=== PATIENT | female | born 1935 | race Caucasian/White ===

== ENCOUNTER 2019-12-24 09:50 | Outpatient (CLI) | payer MEDICARE, OTHER, SELFPAY ==
[2019-12-24 10:08] LABS: Hematocrit 34.4 % (37.0-47.0); Hemoglobin 9.9 g/dL (12.0-15.0)
== END 2019-12-24 09:51 | disposition home or self-care (01) ==
LOC: ANHLAB 09:53
PROVIDERS: PCP Internal Medicine; Visit Provider Physician Assistant
DX: D64.9 Anemia, unspecified (principal)
CPT/HCPCS: 36415; 85014; 85018

== ENCOUNTER 2019-12-31 00:41 | Day surgery (SDC) | payer MEDICARE, OTHER, SELFPAY ==
[2019-12-23 14:25] VITALS: BMI 24.2
[2019-12-31 08:25] VITALS: BP 140/75; PULSE 88; RESP 16; TEMP 36.4; O2SAT 96
--- NOTE | 2019-12-31 08:25 | PM.IMHP ---
H&P: HPI History of Present Illness Chief complaint: Iron deficiency anemia due to chronic blood loss Narrative: Denise Segura is a 84 year old female presents for repeat EGD. She has recurrent Anemia. She had EGD/Colonoscopy 12/17/2019 and was found to have multiple duodenal AVM for which APC was used. She had so many it was advised to come back in a few weeks for repeat EGD. She had colonoscopy at that time that was unremarkable. She does have hx of recurrent colon cancer s/p colectomy in 1999 and 2017 and found at that time to have bladder cancer. Patient last hgb was noted on 12/14/2019 to be 9.9. She denies any melena, hematochezia, hemetemesis, GERD, nausea or vomiting. Denies abnormal weight loss, fever or chills. Review of Systems Review of Systems: All systems reviewed & are unremarkable except as noted in HPI and below Gastrointestinal: Gastrointestinal: Reports vomiting (this AM. nothing black or bloody) [facility] Past Medical History Medical History (Updated 12/31/19 @ 08:37 by Tara Joiner, BOILER ENGINEER) Barretts esophagus Status post radiofrequency ablation. Bartholin cyst Status post excision. 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 Bland. Chronic anemia With history of blood transfusion. Chronic kidney disease Stage III. Baseline creatinine appears to fluctuate between 1.0 and 1.20. Colon cancer (1999) Status post right hemicolectomy. There was recurrence at the splenic fracture, which was resected in September [address] Duran. Coronary artery disease Cardiac catheterization June 2018 with high-grade stenosis in the proximal mid right coronary artery and mild stenosis of the mid LAD with bare metal stent placement due to history of GI bleeding Diastolic congestive heart failure Echocardiogram in September 2018 showed an ejection fraction of 70-75% with severe left atrial enlargement and moderate right atrial enlargement. GERD (gastroesophageal reflux disease) With history of peptic ulcers. History of atrial flutter Status post ablation of the cavo-tricuspid isthmus per Dr. Jaffe at [facility]. Hyperlipidemia Hypertension Moderate pulmonary arterial systolic hypertension On echocardiogram in September 2018 with an estimated peak RVSP 45-50 mmHg. Paroxysmal atrial fibrillation She is maintained on amiodarone. She had been on metoprolol in the past, but that was stopped due to bradycardia. She is on long-term anticoagulation with Eliquis. Her receiver bulk system is Dr. Jake Bravo. Peptic ulcer disease With history of GI bleed. Spinal stenosis Uterine cancer Status post hysterectomy. Valvular heart disease Echocardiogram in September 2018 showed mild to moderate mitral valve regurgitation, mild aortic valve regurgitation, and moderate tricuspid regurgitation. Surgical History Surgical History H/O right hemicolectomy With excision of 3 liver lesions in September 2016. She had a recurrence at the splenic fracture which was resected in September 2018. History of cardiac catheterization With placement of bare metal stent to the right coronary artery in 2009. History of cardiac radiofrequency ablation For atrial flutter per Dr. Jaffe at [facility]. History of cataract surgery Bilateral. History of total abdominal hysterectomy and bilateral salpingo-oophorectomy In 1999, reportedly due to ?early? uterine cancer. S/P bladder tumor excision with fulguration For urothelial cell carcinoma, done in September [address] Bland. Status post left breast lumpectomy With benign pathology. Status post surgical removal of ganglion cyst Left volar wrist. Social History Social History Social History: The patient is and lives in [place]. Her daughter, Jena Mar, is her surrogate decision make
[2019-12-31] MEDS: LACTATED RINGERS 1,000 ML 150 ML IV CONT (08:37)
--- NOTE | 2019-12-31 09:01 | WPDANESEPPF ---
Anes - Initial Pre Proc Eval Procedure: Operation Date: 12/31/19 09:00 Proposed Procedures p Esophagogastroduodenoscopy - Carlo Penaloza DO Date/Time: 12/31/19 09:01 Surgeon: Carlo Penaloza DO Pre Op Diagnosis: Iron deficiency anemia due to chronic blood loss Patient Data Age: 84 Gender: F Height: 5 ft 2 in Weight: 64.1 kg Last Vital Signs Temp 36.4 C 12/31/19 08:25 Pulse 88 12/31/19 08:25 Resp 16 12/31/19 08:25 BP 140/75 12/31/19 08:25 Pulse Ox 96 12/31/19 08:25 Allergies Allergy/AdvReac Type Severity Reaction Status Date / Time No Known Allergies Allergy Verified 12/31/19 08:07 Home Medications Medication Instructions Recorded Confirmed Type furosemide 40 mg tablet 40 mg PO BID 09/21/19 12/31/19 History losartan 50 mg tablet 50 mg PO DAILY 09/21/19 12/31/19 History ferrous sulfate 324 mg (65 mg 324 mg PO BID #180 tablet 10/14/19 12/31/19 Rx iron) tablet,delayed release potassium chloride 20 mEq 40 meq PO BID #120 tablet 11/19/19 12/31/19 Rx tablet,extended release amiodarone 400 mg PO BID 12/23/19 12/31/19 History atorvastatin 20 mg PO DAILY 12/23/19 12/31/19 History metoprolol tartrate 25 mg PO BID 12/23/19 12/31/19 History pantoprazole 40 mg PO HS 12/23/19 12/31/19 History Patient hx anesthesia problems: none Family hx anesthesia problems: none PMFSH Past Medical History Medical History Barretts esophagus Status post radiofrequency ablation. Bartholin cyst Status post excision. 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 Bland. Chronic anemia With history of blood transfusion. Chronic kidney disease Stage III. Baseline creatinine appears to fluctuate between 1.0 and 1.20. Colon cancer (1999) Status post right hemicolectomy. There was recurrence at the splenic fracture, which was resected in September [address] Duran. Coronary artery disease Cardiac catheterization June 2018 with high-grade stenosis in the proximal mid right coronary artery and mild stenosis of the mid LAD with bare metal stent placement due to history of GI bleeding Diastolic congestive heart failure Echocardiogram in September 2018 showed an ejection fraction of 70-75% with severe left atrial enlargement and moderate right atrial enlargement. GERD (gastroesophageal reflux disease) With history of peptic ulcers. History of atrial flutter Status post ablation of the cavo-tricuspid isthmus per Dr. Jaffe at [facility]. Hyperlipidemia Hypertension Moderate pulmonary arterial systolic hypertension On echocardiogram in September 2018 with an estimated peak RVSP 45-50 mmHg. Paroxysmal atrial fibrillation She is maintained on amiodarone. She had been on metoprolol in the past, but that was stopped due to bradycardia. She is on long-term anticoagulation with Eliquis. Her adult health clinical nurse specialist is Dr. Jake Bravo. Peptic ulcer disease With history of GI bleed. Spinal stenosis Uterine cancer Status post hysterectomy. Valvular heart disease Echocardiogram in September 2018 showed mild to moderate mitral valve regurgitation, mild aortic valve regurgitation, and moderate tricuspid regurgitation. Surgical History Surgical History H/O right hemicolectomy With excision of 3 liver lesions in September 2016. She had a recurrence at the splenic fracture which was resected in September 2018. History of cardiac catheterization With placement of bare metal stent to the right coronary artery in 2009. History of cardiac radiofrequency ablation For atrial flutter per Dr[facility] Jaffe at [facility]. History of cataract surgery Bilateral. History of total abdominal hysterectomy and bilateral salpingo-oophorectomy In 1999, reportedly due to ?early? uterine cancer. S/P bladder tumor excision with fulguration
[2019-12-31 10:00] VITALS: BP 135/57; PULSE 60; RESP 16; O2SAT 95
[2019-12-31 10:10] VITALS: BP 124/56; PULSE 62; RESP 18; O2SAT 95
[2019-12-31 10:20] VITALS: BP 136/56; PULSE 60; RESP 18; O2SAT 99
== END 2019-12-31 10:45 | disposition home or self-care (01) ==
PROVIDERS: PCP Internal Medicine; Visit Provider Internal Medicine Gastroenterology
PROC: 0DJ08ZZ Inspection of Upper Intestinal Tract, Via Natural or Artificial Opening Endoscopic (ICD-10-PCS; CPT 43235; principal; 2019-12-31 09:00)
DX: Q27.33 Arteriovenous malformation of digestive system vessel (principal); K29.70 Gastritis, unspecified, without bleeding; D50.0 Iron deficiency anemia secondary to blood loss (chronic); I13.0 Hypertensive heart and chronic kidney disease with heart failure and stage 1 through stage 4 chronic kidney disease, or unspecified chronic kidney disease; I50.30 Unspecified diastolic (congestive) heart failure; I25.10 Atherosclerotic heart disease of native coronary artery without angina pectoris; K21.9 Gastro-esophageal reflux disease without esophagitis; I48.0 Paroxysmal atrial fibrillation; Z95.5 Presence of coronary angioplasty implant and graft; Z87.11 Personal history of peptic ulcer disease; Z85.51 Personal history of malignant neoplasm of bladder; Z85.038 Personal history of other malignant neoplasm of large intestine; Z90.49 Acquired absence of other specified parts of digestive tract; Z85.42 Personal history of malignant neoplasm of other parts of uterus; Z87.891 Personal history of nicotine dependence
CPT/HCPCS: 43270; J2704; J7120

== ENCOUNTER 2020-01-28 11:04 | Outpatient (RCR) | payer MEDICARE, OTHER, SELFPAY ==
[2020-01-05 12:55] LABS: Basophils Percent Auto 0.5 % (0.2-1.2); Eosinophils Absolute Auto 0.1 K/mm3 (0-0.3); Eosinophils Percent Auto 1.5 % (0-4.4); Hematocrit 34.2 % (37.0-47.0); Immature Granulocyte Absolute 0.16 K/mm3 (0.00-0.031); Immature Granulocyte Percent A 1.9 % (0-0.5); Lymphocytes Absolute Auto 0.85 K/mm3 (0.9-3.2); Mean Corpuscular HGB Conc 29.2 g/dl (32-36); Mean Corpuscular Hemoglobin 24.9 pg (26-34); Mean Corpuscular Volume 85.1 fl (80-100); Mean Platelet Volume 9.3 fl (7.4-10.4); Monocytes Absolute Auto 0.6 K/mm3 (0.1-0.6); Monocytes Percent Auto 6.7 % (2.6-8.5); Neutrophils Absolute Auto 6.7 K/mm3 (1.3-6.7); Neutrophils Percent Auto 79.4 % (45.5-73.1); Platelet Count Result 351 k/mm3 (150-375); Red Blood Count 4.02 M/mm3 (4.2-5.4); Red Cell Distribution Width 18.7 % (11.5-14.5); White Blood Count 8.5 K/mm3 (4.5-10.0)
[2020-01-14 13:05] LABS: Basophils Percent Auto 0.6 % (0.2-1.2); Eosinophils Absolute Auto 0.2 K/mm3 (0-0.3); Eosinophils Percent Auto 3.5 % (0-4.4); Hematocrit 32.4 % (37.0-47.0); Hemoglobin 9.3 g/dL (12.0-15.0); Immature Granulocyte Absolute 0.05 K/mm3 (0.00-0.031); Immature Granulocyte Percent A 0.8 % (0-0.5); Lymphocytes Absolute Auto 0.85 K/mm3 (0.9-3.2); Mean Corpuscular HGB Conc 28.7 g/dl (32-36); Mean Corpuscular Hemoglobin 24.9 pg (26-34); Mean Corpuscular Volume 86.6 fl (80-100); Mean Platelet Volume 9.9 fl (7.4-10.4); Monocytes Absolute Auto 0.5 K/mm3 (0.1-0.6); Monocytes Percent Auto 8.1 % (2.6-8.5); Neutrophils Absolute Auto 4.8 K/mm3 (1.3-6.7); Platelet Count Result 239 k/mm3 (150-375); Red Blood Count 3.74 M/mm3 (4.2-5.4); Red Cell Distribution Width 20.7 % (11.5-14.5); White Blood Count 6.5 K/mm3 (4.5-10.0)
[2020-01-14 13:25] LABS: Anisocytosis 2+ (NORMAL); Platelet Estimate Adequate (Adequate)
[2020-01-14 13:26] LABS: Hypochromasia 1+ (NORMAL)
[2020-01-21 13:57] LABS: Basophils Absolute Auto 0.1 K/mm3 (0.0-0.1); Basophils Percent Auto 0.7 % (0.2-1.2); Eosinophils Absolute Auto 0.2 K/mm3 (0-0.3); Eosinophils Percent Auto 3.2 % (0-4.4); Hemoglobin 9.5 g/dL (12.0-15.0); Immature Granulocyte Absolute 0.09 K/mm3 (0.00-0.031); Immature Granulocyte Percent A 1.2 % (0-0.5); Lymphocytes Absolute Auto 1.16 K/mm3 (0.9-3.2); Lymphocytes Percent Auto 15.4 % (18.3-44.2); Mean Corpuscular HGB Conc 28.8 g/dl (32-36); Mean Corpuscular Hemoglobin 25.8 pg (26-34); Mean Corpuscular Volume 89.7 fl (80-100); Mean Platelet Volume 10.2 fl (7.4-10.4); Monocytes Absolute Auto 0.5 K/mm3 (0.1-0.6); Monocytes Percent Auto 6.9 % (2.6-8.5); Neutrophils Absolute Auto 5.5 K/mm3 (1.3-6.7); Neutrophils Percent Auto 72.6 % (45.5-73.1); Platelet Count Result 278 k/mm3 (150-375); Red Blood Count 3.68 M/mm3 (4.2-5.4); White Blood Count 7.5 K/mm3 (4.5-10.0)
[2020-01-28 11:40] LABS: Basophils Absolute Auto 0.1 K/mm3 (0.0-0.1); Basophils Percent Auto 0.9 % (0.2-1.2); Eosinophils Absolute Auto 0.2 K/mm3 (0-0.3); Eosinophils Percent Auto 3.1 % (0-4.4); Hematocrit 29.9 % (37.0-47.0); Hemoglobin 8.5 g/dL (12.0-15.0); Immature Granulocyte Absolute 0.05 K/mm3 (0.00-0.031); Immature Granulocyte Percent A 0.7 % (0-0.5); Lymphocytes Absolute Auto 0.73 K/mm3 (0.9-3.2); Lymphocytes Percent Auto 10.8 % (18.3-44.2); Mean Corpuscular HGB Conc 28.4 g/dl (32-36); Mean Corpuscular Hemoglobin 25.4 pg (26-34); Mean Corpuscular Volume 89.5 fl (80-100); Mean Platelet Volume 9.9 fl (7.4-10.4); Monocytes Absolute Auto 0.5 K/mm3 (0.1-0.6); Monocytes Percent Auto 6.8 % (2.6-8.5); Neutrophils Absolute Auto 5.3 K/mm3 (1.3-6.7); Neutrophils Percent Auto 77.7 % (45.5-73.1); Platelet Count Result 268 k/mm3 (150-375); Red Blood Count 3.34 M/mm3 (4.2-5.4); Red Cell Distribution Width 20.7 % (11.5-14.5); White Blood Count 6.8 K/mm3 (4.5-10.0)
== END 2020-04-04 23:59 | disposition home or self-care (01) ==
LOC: ANHLAB 11:04
PROVIDERS: PCP Internal Medicine; Visit Provider Nurse Practitioner
DX: D50.0 Iron deficiency anemia secondary to blood loss (chronic) (principal); K55.21 Angiodysplasia of colon with hemorrhage
CPT/HCPCS: 36415; 85025

== ENCOUNTER 2020-02-17 14:09 | Outpatient (CLI) | payer MEDICARE, OTHER, SELFPAY ==
[2020-02-17 15:19] LABS: Basophils Absolute Auto 0.1 K/mm3 (0.0-0.1); Basophils Percent Auto 0.6 % (0.2-1.2); Eosinophils Absolute Auto 0.2 K/mm3 (0-0.3); Eosinophils Percent Auto 1.7 % (0-4.4); Hematocrit 24.8 % (37.0-47.0); Immature Granulocyte Absolute 0.15 K/mm3 (0.00-0.031); Immature Granulocyte Percent A 1.7 % (0-0.5); Lymphocytes Absolute Auto 0.75 K/mm3 (0.9-3.2); Lymphocytes Percent Auto 8.7 % (18.3-44.2); Mean Corpuscular HGB Conc 27.4 g/dl (32-36); Mean Corpuscular Hemoglobin 25.3 pg (26-34); Mean Corpuscular Volume 92.2 fl (80-100); Mean Platelet Volume 11.1 fl (7.4-10.4); Monocytes Absolute Auto 0.7 K/mm3 (0.1-0.6); Neutrophils Absolute Auto 6.9 K/mm3 (1.3-6.7); Neutrophils Percent Auto 79.3 % (45.5-73.1); Nucleated Red Blood Cells Perc 0.2 % (0.0-0.2); Platelet Count Result 269 k/mm3 (150-375); Red Blood Count 2.69 M/mm3 (4.2-5.4); Red Cell Distribution Width 18.1 % (11.5-14.5); White Blood Count 8.7 K/mm3 (4.5-10.0)
[2020-02-17 15:26] LABS: INR 1.5; Prothrombin Time 18.1 Seconds (11.1-14.7)
[2020-02-17 15:28] LABS: Blood Urea Nitrogen 22 mg/dL (7-17); Calcium 8.5 mg/dL (8.4-10.2); Carbon Dioxide 28 mmol/L (22-30); Chloride 100 mmol/L (98-107); Estimated Glomerular Filt Rate 39; Glucose 138 mg/dL (65-105); Potassium 4.1 mmol/L (3.4-5.0); Sodium 136 mmol/L (137-145)
[2020-02-17 15:29] LABS: Hemoglobin 6.8 g/dL (12.0-15.0)
[2020-02-17 15:41] LABS: Hypochromasia 2+ (NORMAL); Platelet Estimate Adequate (Adequate)
[2020-02-17 15:42] LABS: Anisocytosis 3+ (NORMAL)
== END 2020-02-17 14:10 | disposition home or self-care (01) ==
PROVIDERS: PCP Internal Medicine; Visit Provider Internal Medicine Gastroenterology
DX: D64.9 Anemia, unspecified (principal); K92.2 Gastrointestinal hemorrhage, unspecified
CPT/HCPCS: 36415; 80048; 85025; 85610

== ENCOUNTER 2020-02-23 05:45 | Day surgery (SDC) | payer MEDICARE, OTHER, SELFPAY ==
[2020-02-18 10:52] VITALS: BMI 22.8
[2020-02-23 09:49] VITALS: BP 134/74; PULSE 86; RESP 20; TEMP 36.4; O2SAT 100
[2020-02-23 09:51] VITALS: BMI 23.5
--- NOTE | 2020-02-23 10:11 | PM.IMHP ---
H&P: HPI History of Present Illness Chief complaint: Anemia/ Gastrointestinal Hemorrhage Narrative: This very pleasant lady is here for EGD. Imp: Recurrent anemia with his of SB AVM His. CRC GERD. PER PMH. Rec: EGD. History: This very plesant lady has history of SB AVM. She has developed recurrent anemia. She reports diffuse weakness when she is anemic. she is here for EGD. PE: Alert HRRR HEENTN: negative Lungs CTA Abd: soft N: non focal ERICA: negative Skin: negative. Review of Systems Review of Systems: All systems reviewed & are unremarkable except as noted in HPI and below [facility] Past Medical History Medical History (Updated 12/31/19 @ 09:53 by Carlo Penaloza DO) AVM (arteriovenous malformation) of duodenum, acquired Barretts esophagus Status post radiofrequency ablation. Bartholin cyst Status post excision. 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 Bland. Chronic anemia With history of blood transfusion. Chronic kidney disease Stage III. Baseline creatinine appears to fluctuate between 1.0 and 1.20. Colon cancer (1999) Status post right hemicolectomy. There was recurrence at the splenic fracture, which was resected in September [address] Duran. Coronary artery disease Cardiac catheterization June 2018 with high-grade stenosis in the proximal mid right coronary artery and mild stenosis of the mid LAD with bare metal stent placement due to history of GI bleeding Diastolic congestive heart failure Echocardiogram in September 2018 showed an ejection fraction of 70-75% with severe left atrial enlargement and moderate right atrial enlargement. GERD (gastroesophageal reflux disease) With history of peptic ulcers. History of atrial flutter Status post ablation of the cavo-tricuspid isthmus per Dr. Jaffe at [facility]. Hyperlipidemia Hypertension Moderate pulmonary arterial systolic hypertension On echocardiogram in September 2018 with an estimated peak RVSP 45-50 mmHg. Paroxysmal atrial fibrillation She is maintained on amiodarone. She had been on metoprolol in the past, but that was stopped due to bradycardia. She is on long-term anticoagulation with Eliquis. Her supervisor veneer is Dr. Jake Bravo. Peptic ulcer disease With history of GI bleed. Spinal stenosis Uterine cancer Status post hysterectomy. Valvular heart disease Echocardiogram in September 2018 showed mild to moderate mitral valve regurgitation, mild aortic valve regurgitation, and moderate tricuspid regurgitation. Surgical History Surgical History H/O right hemicolectomy With excision of 3 liver lesions in September 2016. She had a recurrence at the splenic fracture which was resected in September 2018. History of cardiac catheterization With placement of bare metal stent to the right coronary artery in 2009. History of cardiac radiofrequency ablation For atrial flutter per Dr. Jaffe at [facility]. History of cataract surgery Bilateral. History of total abdominal hysterectomy and bilateral salpingo-oophorectomy In 1999, reportedly due to ?early? uterine cancer. S/P bladder tumor excision with fulguration For urothelial cell carcinoma, done in September [address] Bland. Status post left breast lumpectomy With benign pathology. Status post surgical removal of ganglion cyst Left volar wrist. Social History Social History Social History: The patient is and lives in [place]. Her daughter, Jena Mar, is her surrogate decision maker and she is listed as a full code. She smoked up to half a pack of cigarettes per day, and still smokes intermittently but not daily. She denies alcohol and drug abuse. Her primary care provider is Dr. Amandeep Gutierrez. Smoking status: Former smoker Second hand
[2020-02-23] MEDS: LACTATED RINGERS 1,000 ML 150 ML IV CONT (10:29)
--- NOTE | 2020-02-23 10:29 | WPDANESEPPF ---
Anes - Initial Pre Proc Eval Procedure: Operation Date: 02/23/20 11:00 Proposed Procedures p Esophagogastroduodenoscopy - Carlo Penaloza DO Date/Time: 02/23/20 10:29 Surgeon: Carlo Penaloza DO Pre Op Diagnosis: Anemia/ Gastrointestinal Hemorrhage Patient Data Age: 85 Gender: F Height: 5 ft 6 in Weight: 66 kg Last Vital Signs Temp 36.4 C 02/23/20 09:49 Pulse 86 02/23/20 09:49 Resp 20 02/23/20 09:49 BP 134/74 02/23/20 09:49 Pulse Ox 100 02/23/20 09:49 Allergies Allergy/AdvReac Type Severity Reaction Status Date / Time No Known Allergies Allergy Verified 12/31/19 08:07 Home Medications Medication Instructions Recorded Confirmed Type furosemide 40 mg tablet 40 mg PO BID 09/21/19 02/23/20 History losartan 50 mg tablet 50 mg PO DAILY 09/21/19 02/23/20 History ferrous sulfate 324 mg (65 mg 324 mg PO BID #180 tablet 10/14/19 02/18/20 Rx iron) tablet,delayed release amiodarone 400 mg PO BID 12/23/19 02/23/20 History atorvastatin 20 mg PO DAILY 12/23/19 02/23/20 History pantoprazole 40 mg PO HS 12/23/19 02/23/20 History potassium chloride 20 mEq 40 meq PO BID #120 tablet 01/05/20 02/23/20 Rx tablet,extended release metoprolol tartrate 25 mg tablet 25 mg PO BID #180 tablet 01/07/20 02/23/20 Rx vitamin K2 80 mcg PO 02/23/20 History Patient hx anesthesia problems: none Family hx anesthesia problems: none [facility] Past Medical History Medical History AVM (arteriovenous malformation) of duodenum, acquired Barretts esophagus Status post radiofrequency ablation. Bartholin cyst Status post excision. 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 Bland. Chronic anemia With history of blood transfusion. Chronic kidney disease Stage III. Baseline creatinine appears to fluctuate between 1.0 and 1.20. Colon cancer (1999) Status post right hemicolectomy. There was recurrence at the splenic fracture, which was resected in September [address] Duran. Coronary artery disease Cardiac catheterization June 2018 with high-grade stenosis in the proximal mid right coronary artery and mild stenosis of the mid LAD with bare metal stent placement due to history of GI bleeding Diastolic congestive heart failure Echocardiogram in September 2018 showed an ejection fraction of 70-75% with severe left atrial enlargement and moderate right atrial enlargement. GERD (gastroesophageal reflux disease) With history of peptic ulcers. History of atrial flutter Status post ablation of the cavo-tricuspid isthmus per Dr. Jaffe at [facility]. Hyperlipidemia Hypertension Moderate pulmonary arterial systolic hypertension On echocardiogram in September 2018 with an estimated peak RVSP 45-50 mmHg. Paroxysmal atrial fibrillation She is maintained on amiodarone. She had been on metoprolol in the past, but that was stopped due to bradycardia. She is on long-term anticoagulation with Eliquis. Her rapid outsole stitcher is Dr. Jake Bravo. Peptic ulcer disease With history of GI bleed. Spinal stenosis Uterine cancer Status post hysterectomy. Valvular heart disease Echocardiogram in September 2018 showed mild to moderate mitral valve regurgitation, mild aortic valve regurgitation, and moderate tricuspid regurgitation. Surgical History Surgical History H/O right hemicolectomy With excision of 3 liver lesions in September 2016. She had a recurrence at the splenic fracture which was resected in September 2018. History of cardiac catheterization With placement of bare metal stent to the right coronary artery in 2009. History of cardiac radiofrequency ablation For atrial flutter per Dr. Jaffe at [facility]. History of cataract surgery Bilateral. History of total abdominal hysterectomy and bilateral salpingo-oophorec
[2020-02-23 10:33] LABS: Basophils Percent Auto 0.8 % (0.2-1.2); Eosinophils Absolute Auto 0.2 K/mm3 (0-0.3); Eosinophils Percent Auto 3.1 % (0-4.4); Hematocrit 28.9 % (37.0-47.0); Immature Granulocyte Absolute 0.04 K/mm3 (0.00-0.031); Immature Granulocyte Percent A 0.8 % (0-0.5); Lymphocytes Absolute Auto 0.74 K/mm3 (0.9-3.2); Lymphocytes Percent Auto 14.2 % (18.3-44.2); Mean Corpuscular HGB Conc 27.7 g/dl (32-36); Mean Corpuscular Hemoglobin 25.3 pg (26-34); Mean Corpuscular Volume 91.5 fl (80-100); Mean Platelet Volume 9.6 fl (7.4-10.4); Monocytes Absolute Auto 0.5 K/mm3 (0.1-0.6); Monocytes Percent Auto 8.8 % (2.6-8.5); Neutrophils Absolute Auto 3.8 K/mm3 (1.3-6.7); Neutrophils Percent Auto 72.3 % (45.5-73.1); Platelet Count Result 195 k/mm3 (150-375); Red Blood Count 3.16 M/mm3 (4.2-5.4); Red Cell Distribution Width 16.2 % (11.5-14.5); White Blood Count 5.2 K/mm3 (4.5-10.0)
--- NOTE | 2020-02-23 10:38 | SUR.PREOP ---
1033 DAUGHTER CALLED AND ASKED TO COME TO THE HOSPITAL. DAUGHTER SENT HOME WITH RECENT COVID PRECAUTIONS. REGINO HOWELL
[2020-02-23 10:44] LABS: INR 1.1; Prothrombin Time 13.7 Seconds (11.1-14.7)
[2020-02-23 10:59] LABS: Hypochromasia 1+ (NORMAL); Ovalocytes 1+ (NORMAL); Platelet Estimate Adequate (Adequate)
[2020-02-23 11:07] VITALS: BP 80/30; PULSE 65; RESP 23; O2SAT 100
[2020-02-23 11:17] VITALS: BP 97/40; PULSE 61; RESP 20; O2SAT 98
[2020-02-23 11:27] VITALS: BP 126/61; PULSE 64; RESP 20; O2SAT 99
== END 2020-02-23 11:45 | disposition home or self-care (01) ==
PROVIDERS: PCP Internal Medicine; Visit Provider Internal Medicine Gastroenterology
PROC: 0DJ08ZZ Inspection of Upper Intestinal Tract, Via Natural or Artificial Opening Endoscopic (ICD-10-PCS; CPT 43235; principal; 2020-02-23 11:00)
DX: D64.9 Anemia, unspecified (principal); Q27.33 Arteriovenous malformation of digestive system vessel; K29.70 Gastritis, unspecified, without bleeding; I13.0 Hypertensive heart and chronic kidney disease with heart failure and stage 1 through stage 4 chronic kidney disease, or unspecified chronic kidney disease; N18.3 Chronic kidney disease, stage 3 (moderate); I50.30 Unspecified diastolic (congestive) heart failure; I25.10 Atherosclerotic heart disease of native coronary artery without angina pectoris; I08.3 Combined rheumatic disorders of mitral, aortic and tricuspid valves; E78.5 Hyperlipidemia, unspecified; I48.0 Paroxysmal atrial fibrillation; I27.20 Pulmonary hypertension, unspecified; Z85.038 Personal history of other malignant neoplasm of large intestine; Z85.51 Personal history of malignant neoplasm of bladder; Z85.42 Personal history of malignant neoplasm of other parts of uterus; Z90.49 Acquired absence of other specified parts of digestive tract; F17.210 Nicotine dependence, cigarettes, uncomplicated
CPT/HCPCS: 43270; 36415; 85025; 85610; J2001; J2704; J7120

== ENCOUNTER 2020-03-09 11:08 | Outpatient (CLI) | payer MEDICARE, OTHER, SELFPAY ==
[2020-03-09 11:46] LABS: Basophils Absolute Auto 0.1 K/mm3 (0.0-0.1); Basophils Percent Auto 0.9 % (0.2-1.2); Eosinophils Absolute Auto 0.2 K/mm3 (0-0.3); Eosinophils Percent Auto 2.6 % (0-4.4); Hematocrit 29.3 % (37.0-47.0); Hemoglobin 8.1 g/dL (12.0-15.0); Immature Granulocyte Absolute 0.04 K/mm3 (0.00-0.031); Immature Granulocyte Percent A 0.7 % (0-0.5); Lymphocytes Absolute Auto 0.96 K/mm3 (0.9-3.2); Lymphocytes Percent Auto 16.9 % (18.3-44.2); Mean Corpuscular HGB Conc 27.6 g/dl (32-36); Mean Corpuscular Hemoglobin 24.9 pg (26-34); Mean Corpuscular Volume 90.2 fl (80-100); Mean Platelet Volume 10.4 fl (7.4-10.4); Monocytes Absolute Auto 0.5 K/mm3 (0.1-0.6); Monocytes Percent Auto 9.5 % (2.6-8.5); Neutrophils Absolute Auto 3.9 K/mm3 (1.3-6.7); Neutrophils Percent Auto 69.4 % (45.5-73.1); Platelet Count Result 242 k/mm3 (150-375); Red Blood Count 3.25 M/mm3 (4.2-5.4); Red Cell Distribution Width 16.6 % (11.5-14.5); White Blood Count 5.7 K/mm3 (4.5-10.0)
[2020-03-09 11:59] LABS: Platelet Estimate Adequate (Adequate)
== END 2020-03-09 11:09 | disposition home or self-care (01) ==
LOC: ANHLAB 11:11
PROVIDERS: PCP Internal Medicine; Visit Provider Internal Medicine Gastroenterology
DX: K55.21 Angiodysplasia of colon with hemorrhage (principal); D50.8 Other iron deficiency anemias
CPT/HCPCS: 36415; 85025

== ENCOUNTER 2020-04-26 00:12 | Outpatient (CLI) | payer MEDICARE, OTHER, SELFPAY ==
[2020-04-26 18:39] LABS: SARS-CoV-2 RNA PCR Negative
== END 2020-04-26 00:13 | disposition home or self-care (01) ==
LOC: ANHCOVIDDT 00:14
PROVIDERS: PCP Internal Medicine; Visit Provider Internal Medicine Gastroenterology
DX: Z01.818 Encounter for other preprocedural examination (principal); Z11.59 Encounter for screening for other viral diseases
CPT/HCPCS: 87635; C9803; U0003

== ENCOUNTER 2020-04-28 00:53 | Day surgery (SDC) | payer MEDICARE, OTHER, SELFPAY ==
[2020-04-21 14:06] VITALS: BMI 26.6
[2020-04-28 08:25] VITALS: BP 158/70; PULSE 84; RESP 16; TEMP 35.9; O2SAT 100
[2020-04-28] MEDS: LACTATED RINGERS 1,000 ML 150 ML IV CONT (08:31)
--- NOTE | 2020-04-28 08:56 | WPDANESEPPF ---
Anes - Initial Pre Proc Eval Procedure: Operation Date: 04/28/20 09:00 Proposed Procedures p Esophagogastroduodenoscopy - Carlo Penaloza DO Date/Time: 04/28/20 08:56 Surgeon: Carlo Penaloza DO Pre Op Diagnosis: Arteriovenous Malformation Small Bowel Patient Data Age: 85 Gender: F Height: 5 ft 2 in Weight: 67.3 kg Last Vital Signs Temp 96.7 F L 04/28/20 08:25 Pulse 84 04/28/20 08:25 Resp 16 04/28/20 08:25 BP 158/70 H 04/28/20 08:25 Pulse Ox 100 04/28/20 08:25 Allergies Allergy/AdvReac Type Severity Reaction Status Date / Time No Known Allergies Allergy Verified 04/28/20 08:23 Home Medications Medication Instructions Recorded Confirmed Type furosemide 40 mg tablet 40 mg PO BID 09/21/19 04/21/20 History losartan 50 mg tablet 50 mg PO DAILY 09/21/19 04/21/20 History ferrous sulfate 324 mg (65 mg 324 mg PO BID #180 tablet 10/14/19 04/21/20 Rx iron) tablet,delayed release amiodarone 400 mg PO BID 12/23/19 04/21/20 History atorvastatin 20 mg PO DAILY 12/23/19 04/21/20 History metoprolol tartrate 25 mg tablet 25 mg PO BID #180 tablet 01/07/20 04/21/20 Rx pantoprazole 40 mg tablet,delayed 40 mg PO HS #90 tablet 03/14/20 04/21/20 Rx release apixaban [Eliquis] 5 mg PO DAILY 04/21/20 04/28/20 History potassium chloride 40 meq PO BID 04/21/20 04/21/20 History Patient hx anesthesia problems: none Family hx anesthesia problems: none PMFSH Surgical History Surgical History H/O right hemicolectomy With excision of 3 liver lesions in September 2016. She had a recurrence at the splenic fracture which was resected in September 2018. History of cardiac catheterization With placement of bare metal stent to the right coronary artery in 2009. History of cardiac radiofrequency ablation For atrial flutter per Dr. Jaffe at [facility]. History of cataract surgery Bilateral. History of total abdominal hysterectomy and bilateral salpingo-oophorectomy In 1999, reportedly due to ?early? uterine cancer. S/P bladder tumor excision with fulguration For urothelial cell carcinoma, done in September [address] Bland. Status post left breast lumpectomy With benign pathology. Status post surgical removal of ganglion cyst Left volar wrist. Social History Social History Social History: The patient is and lives in [place]. Her daughter, Jena Mar, is her surrogate decision maker and she is listed as a full code. She smoked up to half a pack of cigarettes per day, and still smokes intermittently but not daily. She denies alcohol and drug abuse. Her primary care provider is Dr. Amandeep Gutierrez. Smoking status: Former smoker Second hand tobacco smoke exposure: No Additional smoking assessment comments: Alcohol intake: never Substance use: never Gender identity (if verbalized by the patient): Female Spiritual care concerns: No Agree to blood products: Yes Anes - Eval Final PreProcedure Day of Procedure 04/28/20 08:56 Patient weight: normal Heart: regular rate and rhythm Lungs: clear to auscultation Airway: Mallampati scale class II Neurological: alert and oriented Last oral intake: >/= 8 hours ASA classification: IV Emergent: no Anesthetic plan: proceed Anesthesia type and monitoring: general GIVS and standard monitoring Informed Consent: The patient's anesthetic plan and its attendant risks and benefits were discussed with the patient/family/POA. Questions were solicited and answers provided to the satisfaction of the patient/family/POA.
--- NOTE | 2020-04-28 09:31 | PM.IMHP ---
H&P: HPI History of Present Illness Chief complaint: Arteriovenous Malformation Small Bowel Narrative: Reason for visit EGD. Impression: Here we have rodríguez pleasant lady with recurrent GI bleeding. She has documented small-bowel AVMs. She has a history of duodenal ulcer disease and colorectal cancer. Per past medical history. Recommendation: EGD. History: This very pleasant lady's here for EGD. She has a history colorectal cancer, duodenal ulcer disease and small-bowel AVMs. She requires recurrent blood transfusions. She also requires anticoagulation. The patient during her last EGD had multiple AVMs ablated. She is here for follow-up endoscopy for further ablation. GI review systems unremarkable. General: very pleasant patient in no acute distress. HEENT: Head was normocephalic sclerae is clear mouth without masses neck was supple. Heart: Rate rhythm regular without S3 or S4. Lungs: CTA. Abdomen: Soft with no guarding or rigidity. Bowel sounds were active. Neurologic: Cranial nerves 2 through 12 intact. No focal defects. No clonus. Musculoskeletal system: Revealed no joint tenderness or swelling no muscle atrophy. Extremities: Reveal no significant edema. Skin: Warm and dry with normal turgor. Mental status: intact. Patient is alert and oriented. Review of Systems Review of Systems: All systems reviewed & are unremarkable except as noted in HPI and below PMFSH Surgical History Surgical History H/O right hemicolectomy With excision of 3 liver lesions in September 2016. She had a recurrence at the splenic fracture which was resected in September 2018. History of cardiac catheterization With placement of bare metal stent to the right coronary artery in 2009. History of cardiac radiofrequency ablation For atrial flutter per Dr. Jaffe at [facility]. History of cataract surgery Bilateral. History of total abdominal hysterectomy and bilateral salpingo-oophorectomy In 1999, reportedly due to ?early? uterine cancer. S/P bladder tumor excision with fulguration For urothelial cell carcinoma, done in September [address] Bland. Status post left breast lumpectomy With benign pathology. Status post surgical removal of ganglion cyst Left volar wrist. Social History Social History Social History: The patient is and lives in [place]. Her daughter, Jena Mar, is her surrogate decision maker and she is listed as a full code. She smoked up to half a pack of cigarettes per day, and still smokes intermittently but not daily. She denies alcohol and drug abuse. Her primary care provider is Dr. Amandeep Gutierrez. Smoking status: Former smoker Second hand tobacco smoke exposure: No Additional smoking assessment comments: Alcohol intake: never Substance use: never Gender identity (if verbalized by the patient): Female Spiritual care concerns: No Agree to blood products: Yes Meds Home Medications and Allergies Home Medications Medication Instructions Recorded Confirmed Type furosemide 40 mg tablet 40 mg PO BID 09/21/19 04/21/20 History losartan 50 mg tablet 50 mg PO DAILY 09/21/19 04/21/20 History ferrous sulfate 324 mg (65 mg 324 mg PO BID #180 tablet 10/14/19 04/21/20 Rx iron) tablet,delayed release amiodarone 400 mg PO BID 12/23/19 04/21/20 History atorvastatin 20 mg PO DAILY 12/23/19 04/21/20 History metoprolol tartrate 25 mg tablet 25 mg PO BID #180 tablet 01/07/20 04/21/20 Rx pantoprazole 40 mg tablet,delayed 40 mg PO HS #90 tablet 03/14/20 04/21/20 Rx release apixaban [Eliquis] 5 mg PO DAILY 04/21/20 04/28/20 History potassium chloride 40 meq PO BID 04/21/20 04/21/20 History Allergies Allergy/AdvReac Type Severity Reaction Status Date / Time No Known Allergies Allergy Verified 04/28/20 08:23 Vital Signs Vital Signs - 24 hr
[2020-04-28 10:08] VITALS: BP 93/43; PULSE 65; RESP 18; O2SAT 98
[2020-04-28 10:18] VITALS: BP 90/41; PULSE 60; RESP 18; O2SAT 97
[2020-04-28 10:28] VITALS: BP 109/52; PULSE 62; RESP 20; O2SAT 95
== END 2020-04-28 10:46 | disposition home or self-care (01) ==
PROVIDERS: PCP Internal Medicine; Visit Provider Internal Medicine Gastroenterology
PROC: 0DJ08ZZ Inspection of Upper Intestinal Tract, Via Natural or Artificial Opening Endoscopic (ICD-10-PCS; CPT 43235; principal; 2020-04-28 09:00)
DX: K31.819 Angiodysplasia of stomach and duodenum without bleeding (principal); Z87.11 Personal history of peptic ulcer disease; F17.210 Nicotine dependence, cigarettes, uncomplicated; Z95.5 Presence of coronary angioplasty implant and graft; Z79.01 Long term (current) use of anticoagulants; Z90.49 Acquired absence of other specified parts of digestive tract; Z85.51 Personal history of malignant neoplasm of bladder
CPT/HCPCS: 43270; J2704; J7120

== ENCOUNTER 2020-05-16 11:26 | Outpatient (CLI) | payer MEDICARE, OTHER, SELFPAY ==
[2020-05-16 11:47] LABS: Basophils Absolute Auto 0.1 K/mm3 (0.0-0.1); Basophils Percent Auto 0.9 % (0.2-1.2); Eosinophils Absolute Auto 0.1 K/mm3 (0-0.3); Eosinophils Percent Auto 1.9 % (0-4.4); Hematocrit 24.7 % (37.0-47.0); Immature Granulocyte Absolute 0.06 K/mm3 (0.00-0.031); Immature Granulocyte Percent A 0.9 % (0-0.5); Lymphocytes Absolute Auto 0.86 K/mm3 (0.9-3.2); Lymphocytes Percent Auto 12.5 % (18.3-44.2); Mean Corpuscular HGB Conc 27.5 g/dl (32-36); Mean Corpuscular Hemoglobin 24.2 pg (26-34); Mean Corpuscular Volume 87.9 fl (80-100); Mean Platelet Volume 10.6 fl (7.4-10.4); Monocytes Absolute Auto 0.6 K/mm3 (0.1-0.6); Monocytes Percent Auto 8.4 % (2.6-8.5); Neutrophils Absolute Auto 5.2 K/mm3 (1.3-6.7); Neutrophils Percent Auto 75.4 % (45.5-73.1); Platelet Count Result 212 k/mm3 (150-375); Red Blood Count 2.81 M/mm3 (4.2-5.4); Red Cell Distribution Width 17.2 % (11.5-14.5); White Blood Count 6.9 K/mm3 (4.5-10.0)
[2020-05-16 13:16] LABS: Hemoglobin 6.8 g/dL (12.0-15.0)
== END 2020-05-16 11:27 | disposition home or self-care (01) ==
LOC: ANHLAB 11:34
PROVIDERS: PCP Internal Medicine; Visit Provider Internal Medicine Gastroenterology
DX: K55.21 Angiodysplasia of colon with hemorrhage (principal); Z87.19 Personal history of other diseases of the digestive system
CPT/HCPCS: 36415; 85025

== ENCOUNTER 2020-05-17 09:57 | Outpatient (RCR) | payer MEDICARE, OTHER, SELFPAY ==
[2020-02-18 09:34] LABS: Hematocrit 24.6 % (37.0-47.0)
[2020-02-18 09:50] LABS: Hemoglobin 6.7 g/dL (12.0-15.0)
[2020-02-18 11:00] VITALS: BP 105/63; PULSE 74; RESP 14; TEMP 36.5; O2SAT 97
[2020-02-18 11:15] VITALS: BP 117/60; PULSE 60; RESP 14; TEMP 36.9; O2SAT 98
[2020-02-18 12:15] VITALS: BP 115/70; PULSE 65; RESP 14; TEMP 36.8; O2SAT 98
[2020-02-18 13:15] VITALS: BP 109/74; PULSE 63; RESP 16; TEMP 36.9; O2SAT 100
[2020-02-18 13:40] VITALS: BP 126/63; PULSE 67; RESP 16; TEMP 36.8; O2SAT 100
[2020-05-17] VITALS (9 sets, daily range): BP systolic 109–146; BP diastolic 48–87; PULSE 59–74; RESP 15–16; TEMP 36.3–36.6; O2SAT 95–100
[2020-05-17 10:55] LABS: Hematocrit 22.1 % (37.0-47.0)
[2020-05-17] MEDS: SODIUM CHLORIDE 0.9% IV 250 ML 30 ML IV CONT (11:55)
== END 2020-05-18 23:59 | disposition home or self-care (01) ==
LOC: ANHCPCTRAN 09:57
PROVIDERS: PCP Internal Medicine; Visit Provider Internal Medicine Gastroenterology
DX: D64.9 Anemia, unspecified (principal); K55.21 Angiodysplasia of colon with hemorrhage
CPT/HCPCS: 36415; 36430; 85014; 85018; 85025; 86850; 86880; 86900; 86901; 86902; 86922; J7050; P9016

== ENCOUNTER 2020-05-31 01:16 | Outpatient (CLI) | payer MEDICARE, OTHER, SELFPAY ==
[2020-05-31 19:17] LABS: SARS-CoV-2 RNA PCR Negative
== END 2020-05-31 01:17 | disposition home or self-care (01) ==
LOC: ANHCOVIDDT 01:18
PROVIDERS: PCP Internal Medicine; Visit Provider Internal Medicine Gastroenterology
DX: Z01.818 Encounter for other preprocedural examination (principal); Z11.59 Encounter for screening for other viral diseases
CPT/HCPCS: 87635; C9803; U0003

== ENCOUNTER 2020-06-02 01:29 | Day surgery (SDC) | payer MEDICARE, OTHER, SELFPAY ==
[2020-05-24 12:18] VITALS: BMI 25.8
--- NOTE | 2020-06-02 08:22 | SUR.PREOP ---
0822 LABS DRAWN AND SENT ORDERED
[2020-06-02 08:23] VITALS: BP 149/62; PULSE 81; RESP 16; TEMP 36.4; O2SAT 97; BMI 27.1
[2020-06-02 08:25] LABS: Mean Corpuscular HGB Conc 29.4 g/dl (32-36); Mean Corpuscular Hemoglobin 26.3 pg (26-34); Mean Corpuscular Volume 89.5 fl (80-100); Mean Platelet Volume 9.9 fl (7.4-10.4); Platelet Count Result 243 k/mm3 (150-375); Red Cell Distribution Width 19.1 % (11.5-14.5); White Blood Count 7.5 K/mm3 (4.5-10.0)
[2020-06-02] MEDS: LACTATED RINGERS 1,000 ML 150 ML IV CONT (08:28)
[2020-06-02 08:46] LABS: Band Neutrophils Percent 1 % (0-6); Eosinophils Absolute Manual 0.15 K/mm3 (0.02-0.5); Eosinophils Percent Manual 2 % (0-4); Lymphocytes Absolute Manual 0.52 K/mm3 (1.1-4.5); Monocytes Absolute Manual 0.97 K/mm3 (0.1-0.90); Monocytes Percent Manual 13 % (3-9); Neutrophils Absolute Manual 5.85 K/mm3 (1.7-7.2); Neutrophils Percent Manual 77 % (46-73); Ovalocytes 2+ (NORMAL); Platelet Estimate Adequate (Adequate); Stomatocytes 2+ (NORMAL); Total Cells Counted 100
--- NOTE | 2020-06-02 08:50 | WPDANESEPPF ---
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 Patient Data Age: 85 Gender: F Height: 5 ft 2 in Weight: 67.2 kg Last Vital Signs Temp 97.6 F 06/02/20 08:23 Pulse 81 06/02/20 08:23 Resp 16 06/02/20 08:23 BP 149/62 H 06/02/20 08:23 Pulse Ox 97 06/02/20 08:23 Allergies Allergy/AdvReac Type Severity Reaction Status Date / Time No Known Allergies Allergy Verified 06/02/20 08:11 Home Medications Medication Instructions Recorded Confirmed Type furosemide 40 mg tablet 40 mg PO BID 09/21/19 05/24/20 History losartan 50 mg tablet 50 mg PO DAILY 09/21/19 05/24/20 History ferrous sulfate 324 mg (65 mg 324 mg PO BID #180 tablet 10/14/19 05/24/20 Rx iron) tablet,delayed release amiodarone 400 mg PO BID 12/23/19 05/24/20 History atorvastatin 20 mg PO DAILY 12/23/19 05/24/20 History pantoprazole 40 mg tablet,delayed 40 mg PO HS #90 tablet 03/14/20 05/24/20 Rx release apixaban [Eliquis] 5 mg PO DAILY 04/21/20 05/24/20 History potassium chloride 20 mEq 40 meq PO BID #120 tablet 05/10/20 05/24/20 Rx tablet,extended release metoprolol tartrate 25 mg tablet See Rx Instructions .ROUTE 05/24/20 05/24/20 Rx .COMPLEX #180 tablet Laboratory Tests 06/02/20 08:21 WBC 7.5 K/mm3 K/mm3 (4.5-10.0) RBC 3.80 M/mm3 L M/mm3 (4.2-5.4) Hgb 10.0 g/dL L D g/dL (12.0-15.0) Hct 34.0 % L % (37.0-47.0) MCV 89.5 fl fl (80-100) MCH 26.3 pg pg (26-34) MCHC 29.4 g/dl L g/dl (32-36) RDW 19.1 % H % (11.5-14.5) Plt Count 243 k/mm3 k/mm3 (150-375) MPV 9.9 fl fl (7.4-10.4) Immature Gran % (Auto) Not Reportable Neut % (Auto) Not Reportable Lymph % (Auto) Not Reportable [place] % (Auto) Not Reportable Eos % (Auto) Not Reportable Baso % (Auto) Not Reportable Lymph # (Auto) Not Reportable [place] # (Auto) Not Reportable Eos # (Auto) Not Reportable Baso # (Auto) Not Reportable Abs Immat Gran (auto) Not Reportable Absolute Neuts (auto) Not Reportable Absolute Nucleated RBC Not Reportable Total Counted 100 Neutrophils % (Manual) 77 % H % (46-73) Band Neutrophils % 1 % % (0-6) Lymphocytes % (Manual) 7.0 % L % (18-44) Monocytes % (Manual) 13 % H % (3-9) Eosinophils % (Manual) 2 % % (0-4) Nucleated RBC % Not Reportable Abs Neuts (Manual) 5.85 K/mm3 K/mm3 (1.7-7.2) Abs Lymphs (Manual) 0.52 K/mm3 L K/mm3 (1.1-4.5) Abs Monocytes (Manual) 0.97 K/mm3 H K/mm3 (0.1-0.90) Absolute Eos (Manual) 0.15 K/mm3 K/mm3 (0.02-0.5) Platelet Estimate Adequate (Adequate) Ovalocytes 2+ (NORMAL) Stomatocytes 2+ (NORMAL) Patient hx anesthesia problems: none Family hx anesthesia problems: none [facility] Surgical History Surgical History H/O right hemicolectomy With excision of 3 liver lesions in September 2016. She had a recurrence at the splenic fracture which was resected in September 2018. History of cardiac catheterization With placement of bare metal stent to the right coronary artery in 2009. History of cardiac radiofrequency ablation For atrial flutter per Dr. Jaffe at [facility]. History of cataract surgery Bilateral. History of total abdominal hysterectomy and bilateral salpingo-oophorectomy In 1999, reportedly due to ?early? uterine cancer. S/P bladder tumor excision with fulguration For urothelial cell carcinoma, done in September [address] Bland. Status post left breast lumpectomy With benign pathology. Status post surgical removal of ganglion cyst Left volar wrist. Social History Social History (Reviewed 12/31/19 @ 09:01 by Betito Soria
--- NOTE | 2020-06-02 08:52 | PM.IMHP ---
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 this very pleasant lady's seen at the request of the primary physician. The patient was examined. Impression: Here is a lady that is requiring recurrent transfusions. She has documented AVMs of the small bowel. She also has a history of colorectal cancer and peptic ulcer disease. She is here for follow-up endoscopy. Recommendation: EGD. History: Very pleasant lady's well known to myself. She has a history of AVMs of the small bowel. She is here to determine any further ablation of AVMs. She has a previous history colorectal cancer and peptic ulcer disease. She also has a history of Byrd's esophagus. Physical examination: General: very pleasant patient in no acute distress. HEENT: Head was normocephalic sclerae is clear mouth without masses neck was supple. Heart: Rate rhythm regular without S3 or S4. Lungs: CTA. Abdomen: Soft with no guarding or rigidity. Bowel sounds were active. Neurologic: Cranial nerves 2 through 12 intact. No focal defects. No clonus. Musculoskeletal system: Revealed no joint tenderness or swelling no muscle atrophy. Extremities: Reveal no significant edema. Skin: Warm and dry with normal turgor. Mental status: intact. Patient is alert and oriented. Review of Systems Review of Systems: All systems reviewed & are unremarkable except as noted in HPI and below PMFSH Past Medical History Medical History AVM (arteriovenous malformation) of duodenum, acquired Barretts esophagus Status post radiofrequency ablation. Bartholin cyst Status post excision. 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 Bland. Chronic anemia With history of blood transfusion. Chronic kidney disease Stage III. Baseline creatinine appears to fluctuate between 1.0 and 1.20. Colon cancer (1999) Status post right hemicolectomy. There was recurrence at the splenic fracture, which was resected in September [address] Duran. Coronary artery disease Cardiac catheterization June 2018 with high-grade stenosis in the proximal mid right coronary artery and mild stenosis of the mid LAD with bare metal stent placement due to history of GI bleeding Diastolic congestive heart failure Echocardiogram in September 2018 showed an ejection fraction of 70-75% with severe left atrial enlargement and moderate right atrial enlargement. GERD (gastroesophageal reflux disease) With history of peptic ulcers. History of atrial flutter Status post ablation of the cavo-tricuspid isthmus per Dr. Jaffe at [facility]. Hyperlipidemia Hypertension Moderate pulmonary arterial systolic hypertension On echocardiogram in September 2018 with an estimated peak RVSP 45-50 mmHg. Paroxysmal atrial fibrillation She is maintained on amiodarone. She had been on metoprolol in the past, but that was stopped due to bradycardia. She is on long-term anticoagulation with Eliquis. Her general studies program chair is Dr. Jake Bravo. Peptic ulcer disease With history of GI bleed. Spinal stenosis Uterine cancer Status post hysterectomy. Valvular heart disease Echocardiogram in September 2018 showed mild to moderate mitral valve regurgitation, mild aortic valve regurgitation, and moderate tricuspid regurgitation. Surgical History Surgical History H/O colonoscopy H/O right hemicolectomy With excision of 3 liver lesions in September 2016. She had a recurrence at the splenic fracture which was resected in September 2018. History of cardiac catheterization With placement of bare metal stent to the right coronary artery in 2009. History of cardiac radiofrequency ablation For atrial flutter per Dr. Jaffe at [facility]. History
[2020-06-02 10:02] VITALS: BP 110/67; PULSE 60; RESP 17; O2SAT 98
[2020-06-02 10:12] VITALS: BP 123/55; PULSE 60; RESP 17; O2SAT 100
[2020-06-02 10:19] VITALS: BP 132/70; PULSE 60; RESP 17; O2SAT 100
== END 2020-06-02 10:41 | disposition home or self-care (01) ==
PROVIDERS: PCP Internal Medicine; Visit Provider Internal Medicine Gastroenterology
PROC: 0DJ08ZZ Inspection of Upper Intestinal Tract, Via Natural or Artificial Opening Endoscopic (ICD-10-PCS; CPT 43235; principal; 2020-06-02 09:00)
DX: K31.819 Angiodysplasia of stomach and duodenum without bleeding (principal); D64.9 Anemia, unspecified; K29.70 Gastritis, unspecified, without bleeding; K21.9 Gastro-esophageal reflux disease without esophagitis; I25.10 Atherosclerotic heart disease of native coronary artery without angina pectoris; I13.0 Hypertensive heart and chronic kidney disease with heart failure and stage 1 through stage 4 chronic kidney disease, or unspecified chronic kidney disease; I50.30 Unspecified diastolic (congestive) heart failure; N18.3 Chronic kidney disease, stage 3 (moderate); I48.0 Paroxysmal atrial fibrillation; I08.3 Combined rheumatic disorders of mitral, aortic and tricuspid valves; Z95.5 Presence of coronary angioplasty implant and graft; Z79.01 Long term (current) use of anticoagulants; Z85.51 Personal history of malignant neoplasm of bladder; Z90.49 Acquired absence of other specified parts of digestive tract; Z85.038 Personal history of other malignant neoplasm of large intestine; Z87.11 Personal history of peptic ulcer disease; Z85.42 Personal history of malignant neoplasm of other parts of uterus; Z87.891 Personal history of nicotine dependence
CPT/HCPCS: 43270; 36415; 85025; J2704; J7120

== ENCOUNTER 2020-06-16 13:29 | Outpatient (CLI) | payer MEDICARE, OTHER, SELFPAY ==
[2020-06-16 14:22] LABS: Basophils Absolute Auto 0.1 K/mm3 (0.0-0.1); Basophils Percent Auto 0.6 % (0.2-1.2); Eosinophils Absolute Auto 0.1 K/mm3 (0-0.3); Eosinophils Percent Auto 1.3 % (0-4.4); Hematocrit 28.4 % (37.0-47.0); Hemoglobin 8.4 g/dL (12.0-15.0); Immature Granulocyte Absolute 0.06 K/mm3 (0.00-0.031); Immature Granulocyte Percent A 0.7 % (0-0.5); Immature Reticulocyte Fraction 30.1 % (3.0-15.9); Lymphocytes Absolute Auto 0.86 K/mm3 (0.9-3.2); Lymphocytes Percent Auto 9.8 % (18.3-44.2); Mean Corpuscular HGB Conc 29.6 g/dl (32-36); Mean Corpuscular Hemoglobin 26.6 pg (26-34); Mean Corpuscular Volume 89.9 fl (80-100); Mean Platelet Volume 9.5 fl (7.4-10.4); Monocytes Absolute Auto 0.5 K/mm3 (0.1-0.6); Monocytes Percent Auto 5.8 % (2.6-8.5); Neutrophils Absolute Auto 7.2 K/mm3 (1.3-6.7); Neutrophils Percent Auto 81.8 % (45.5-73.1); Platelet Count Result 239 k/mm3 (150-375); Red Blood Count 3.16 M/mm3 (4.2-5.4); Red Cell Distribution Width 18.3 % (11.5-14.5); Reticulocyte Hemoglobin Conten 26.1 pg (28.2-35.7); Reticulocyte Percent 4.11 % (0.7-4.3); Reticulocytes Absolute 0.13 B/L (32.2-175.7); White Blood Count 8.8 K/mm3 (4.5-10.0)
[2020-06-16 14:23] LABS: Anisocytosis 1+ (NORMAL); Hypochromasia 1+ (NORMAL); Platelet Estimate Adequate (Adequate)
[2020-06-16 14:37] LABS: Alanine Aminotransferase 18 U/L (4-35); Albumin Level 3.8 g/dL (3.5-5.1); Alkaline Phosphatase 108 U/L (38-126); Aspartate Amino Transferase 24 U/L (14-36); Bilirubin,Total 0.2 mg/dL (0.2-1.3); Blood Urea Nitrogen 24 mg/dL (7-17); Carbon Dioxide 26 mmol/L (22-30); Chloride 102 mmol/L (98-107); Estimated Glomerular Filt Rate 36; Glucose 246 mg/dL (65-105); Lactate Dehydrogenase 331 U/L (313-618); Sodium 137 mmol/L (137-145)
[2020-06-16 14:46] LABS: Iron 41 ug/dL (37-170)
[2020-06-16 14:55] LABS: Percent Iron Saturation 9 % (20-50)
[2020-07-11 14:24] LABS: Alpha 2 Globulin 0.9 g/dL
== END 2020-06-16 13:30 | disposition home or self-care (01) ==
LOC: ANHLAB 13:35
PROVIDERS: PCP Internal Medicine; Visit Provider Internal Medicine
DX: D50.9 Iron deficiency anemia, unspecified (principal)
CPT/HCPCS: 36415; 80053; 82607; 82728; 83540; 83550; 83615; 84155; 84165; 85025; 85046; 86334; 99212; G0463

== ENCOUNTER 2020-08-23 09:41 | Outpatient (CLI) | payer MEDICARE, OTHER, SELFPAY ==
[2020-08-23 10:33] LABS: Alanine Aminotransferase 12 U/L (4-35); Albumin Level 4.1 g/dL (3.5-5.1); Alkaline Phosphatase 140 U/L (38-126); Anion Gap 10 mmol/L (8-16); Aspartate Amino Transferase 17 U/L (14-36); Bilirubin,Total 0.3 mg/dL (0.2-1.3); Blood Urea Nitrogen 31 mg/dL (7-17); Calcium 8.4 mg/dL (8.4-10.2); Carbon Dioxide 29 mmol/L (22-30); Chloride 102 mmol/L (98-107); Cholesterol 132 mg/dL (0-200); Estimated Glomerular Filt Rate 36; Glucose 174 mg/dL (65-105); HDL Direct 45 mg/dL; Sodium 141 mmol/L (137-145); Triglycerides 186 mg/dL (<150)
[2020-08-23 10:44] LABS: LDL Cholesterol Direct 57 mg/dL
== END 2020-08-23 09:42 | disposition home or self-care (01) ==
PROVIDERS: PCP Internal Medicine; Visit Provider Internal Medicine
DX: E78.5 Hyperlipidemia, unspecified (principal); N18.9 Chronic kidney disease, unspecified; Z79.899 Other long term (current) drug therapy
CPT/HCPCS: 36415; 80053; 80061

== ENCOUNTER 2020-08-27 01:20 | Outpatient (CLI) | payer MEDICARE, OTHER, SELFPAY ==
[2020-08-27 17:59] LABS: SARS-CoV-2 RNA PCR Negative
== END 2020-08-27 01:21 | disposition home or self-care (01) ==
LOC: ANHCOVIDDT 01:20
PROVIDERS: PCP Internal Medicine; Visit Provider Internal Medicine Gastroenterology
DX: Z01.812 Encounter for preprocedural laboratory examination (principal); Z20.828 Contact with and (suspected) exposure to other viral communicable diseases
CPT/HCPCS: 87635; C9803; U0003

== ENCOUNTER 2020-08-29 01:54 | Day surgery (SDC) | payer MEDICARE, OTHER, SELFPAY ==
[2020-08-26 10:43] VITALS: BMI 25.8
[2020-08-29 11:58] VITALS: BP 150/66; PULSE 91; RESP 22; TEMP 36.2; O2SAT 100
--- NOTE | 2020-08-29 12:08 | WPDANESEPPF ---
Anes - Initial Pre Proc Eval Procedure: Operation Date: 08/29/20 13:00 Proposed Procedures p Esophagogastroduodenoscopy - Carlo Penaloza DO Date/Time: 08/29/20 12:08 Surgeon: Carlo Penaloza DO Pre Op Diagnosis: AVM of small bowel Patient Data Age: 85 Gender: F Height: 5 ft 2 in Weight: 66.9 kg Last Vital Signs Temp 97.1 F L 08/29/20 11:58 Pulse 91 08/29/20 11:58 Resp 22 H 08/29/20 11:58 BP 150/66 H 08/29/20 11:58 Pulse Ox 100 08/29/20 11:58 Allergies Allergy/AdvReac Type Severity Reaction Status Date / Time No Known Allergies Allergy Verified 08/29/20 11:51 Home Medications Medication Instructions Recorded Confirmed Type furosemide 40 mg tablet 40 mg PO BID 09/21/19 08/26/20 History losartan 50 mg tablet 50 mg PO DAILY 09/21/19 08/26/20 History atorvastatin 20 mg PO DAILY 12/23/19 08/26/20 History apixaban [Eliquis] 5 mg PO DAILY 04/21/20 08/26/20 History potassium chloride 20 mEq 40 meq PO BID #120 tablet 08/15/20 08/26/20 Rx tablet,extended release amiodarone 200 mg tablet 400 mg PO DAILY tablet 08/23/20 08/26/20 History aspirin 81 mg tablet,delayed 81 mg PO DAILY 08/23/20 08/26/20 History release pantoprazole 40 mg tablet,delayed 40 mg PO HS #90 tablet 08/25/20 08/26/20 Rx release metoprolol tartrate 25 mg PO BID 08/26/20 08/26/20 History Patient hx anesthesia problems: none Family hx anesthesia problems: none PMFSH Past Medical History Medical History AVM (arteriovenous malformation) of duodenum, acquired Barretts esophagus Status post radiofrequency ablation. Bartholin cyst Status post excision. 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 Bland. Chronic anemia With history of blood transfusion. Chronic kidney disease Stage III. Baseline creatinine appears to fluctuate between 1.0 and 1.20. Colon cancer (1999) Status post right hemicolectomy. There was recurrence at the splenic fracture, which was resected in September [address] Duran. Coronary artery disease Cardiac catheterization June 2018 with high-grade stenosis in the proximal mid right coronary artery and mild stenosis of the mid LAD with bare metal stent placement due to history of GI bleeding Diastolic congestive heart failure Echocardiogram in September 2018 showed an ejection fraction of 70-75% with severe left atrial enlargement and moderate right atrial enlargement. GERD (gastroesophageal reflux disease) With history of peptic ulcers. History of atrial flutter Status post ablation of the cavo-tricuspid isthmus per Dr. Jaffe at [facility]. Hyperlipidemia Hypertension Moderate pulmonary arterial systolic hypertension On echocardiogram in September 2018 with an estimated peak RVSP 45-50 mmHg. Paroxysmal atrial fibrillation She is maintained on amiodarone. She had been on metoprolol in the past, but that was stopped due to bradycardia. She is on long-term anticoagulation with Eliquis. Her research affiliate is Dr. Jake Bravo. Peptic ulcer disease With history of GI bleed. Spinal stenosis Uterine cancer Status post hysterectomy. Valvular heart disease Echocardiogram in September 2018 showed mild to moderate mitral valve regurgitation, mild aortic valve regurgitation, and moderate tricuspid regurgitation. Social History Social History Social History: The patient is and lives in [place]. Her daughter, Jena Mar, is her surrogate decision maker and she is listed as a full code. She smoked up to half a pack of cigarettes per day, and still smokes intermittently but not daily. She denies alcohol and drug abuse. Her primary care provider is Dr. Amandeep Gutierrez. Smoking status: Former smoker Second hand tobacco smoke exposure: No Additional smoking assessment comments: Al
[2020-08-29] MEDS: LACTATED RINGERS 1,000 ML 150 ML IV CONT (12:12)
--- NOTE | 2020-08-29 12:30 | PM.IMHP ---
H&P: HPI History of Present Illness Date/Time: 08/29/20 12:30 Chief complaint: AVM of small bowel Narrative: Reason for visit EGD. Impression: Erosive very pleasant lady with recurrent anemia. She has multiple small-bowel AVMs. GERD with Byrd's esophagus. Status post radiofrequency ablation. History of colon cancer. Status post right hemicolectomy. CKD. CHF. Atrial flutter/AFib. HLD. HTN. Pulmonary arterial hypertension. History of peptic ulcer disease. Spinal stenosis. History uterine cancer status post hysterectomy. Valvular heart disease with mitral regurg any aortic valve regurgitation and tricuspid regurgitation. Recommendation: EGD. Physical examination: General: very pleasant patient in no acute distress. HEENT: Head was normocephalic sclerae is clear mouth without masses neck was supple. Heart: Rate rhythm regular without S3 or S4.Patient does have history of AFib/aflutter. This sounded pretty regular today. Lungs: CTA. Abdomen: Soft with no guarding or rigidity. Bowel sounds were active. Neurologic: Cranial nerves 2 through 12 intact. No focal defects. No clonus. Musculoskeletal system: Revealed no joint tenderness or swelling no muscle atrophy. Extremities: Reveal no significant edema. Skin: Warm and dry with normal turgor. Mental status: intact. Patient is alert and oriented. Review of Systems Review of Systems: All systems reviewed & are unremarkable except as noted in HPI and below PMFSH Past Medical History Medical History AVM (arteriovenous malformation) of duodenum, acquired Barretts esophagus Status post radiofrequency ablation. Bartholin cyst Status post excision. 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 Bland. Chronic anemia With history of blood transfusion. Chronic kidney disease Stage III. Baseline creatinine appears to fluctuate between 1.0 and 1.20. Colon cancer (1999) Status post right hemicolectomy. There was recurrence at the splenic fracture, which was resected in September [address] uDran. Coronary artery disease Cardiac catheterization June 2018 with high-grade stenosis in the proximal mid right coronary artery and mild stenosis of the mid LAD with bare metal stent placement due to history of GI bleeding Diastolic congestive heart failure Echocardiogram in September 2018 showed an ejection fraction of 70-75% with severe left atrial enlargement and moderate right atrial enlargement. GERD (gastroesophageal reflux disease) With history of peptic ulcers. History of atrial flutter Status post ablation of the cavo-tricuspid isthmus per Dr. Jaffe at [facility]. Hyperlipidemia Hypertension Moderate pulmonary arterial systolic hypertension On echocardiogram in September 2018 with an estimated peak RVSP 45-50 mmHg. Paroxysmal atrial fibrillation She is maintained on amiodarone. She had been on metoprolol in the past, but that was stopped due to bradycardia. She is on long-term anticoagulation with Eliquis. Her architect internship is Dr. Jake Bravo. Peptic ulcer disease With history of GI bleed. Spinal stenosis Uterine cancer Status post hysterectomy. Valvular heart disease Echocardiogram in September 2018 showed mild to moderate mitral valve regurgitation, mild aortic valve regurgitation, and moderate tricuspid regurgitation. Social History Social History Social History: The patient is and lives in [place]. Her daughter, Jena Mar, is her surrogate decision maker and she is listed as a full code. She smoked up to half a pack of cigarettes per day, and still smokes intermittently but not daily. She denies alcohol and drug abuse. Her primary care provider is Dr. Amandeep Gutierrez. Smoking status: Former smoker
[2020-08-29 13:38] VITALS: BP 94/52; PULSE 65; RESP 18; O2SAT 99
[2020-08-29 13:48] VITALS: BP 94/53; PULSE 63; RESP 16; O2SAT 98
[2020-08-29 13:58] VITALS: BP 92/54; PULSE 64; RESP 19; O2SAT 99
[2020-08-29 14:08] VITALS: BP 97/62; PULSE 60; RESP 23; O2SAT 99
== END 2020-08-29 14:18 | disposition home or self-care (01) ==
PROVIDERS: PCP Internal Medicine; Visit Provider Internal Medicine Gastroenterology
PROC: 0DJ08ZZ Inspection of Upper Intestinal Tract, Via Natural or Artificial Opening Endoscopic (ICD-10-PCS; CPT 43235; principal; 2020-08-29 13:00)
DX: D64.9 Anemia, unspecified (principal); K44.9 Diaphragmatic hernia without obstruction or gangrene; K31.819 Angiodysplasia of stomach and duodenum without bleeding; K31.7 Polyp of stomach and duodenum; K25.9 Gastric ulcer, unspecified as acute or chronic, without hemorrhage or perforation; I13.0 Hypertensive heart and chronic kidney disease with heart failure and stage 1 through stage 4 chronic kidney disease, or unspecified chronic kidney disease; E11.22 Type 2 diabetes mellitus with diabetic chronic kidney disease; N18.30 Chronic kidney disease, stage 3 unspecified; I50.30 Unspecified diastolic (congestive) heart failure; I48.0 Paroxysmal atrial fibrillation; E78.5 Hyperlipidemia, unspecified; I25.10 Atherosclerotic heart disease of native coronary artery without angina pectoris; I08.3 Combined rheumatic disorders of mitral, aortic and tricuspid valves; Z85.42 Personal history of malignant neoplasm of other parts of uterus; Z85.51 Personal history of malignant neoplasm of bladder; Z87.891 Personal history of nicotine dependence
CPT/HCPCS: 43239; 88305; J1642; J2704; J7120

== ENCOUNTER 2020-09-02 14:25 | Outpatient (CLI) | payer MEDICARE, OTHER, SELFPAY ==
[2020-09-02 15:57] LABS: Basophils Absolute Auto 0.1 K/mm3 (0.0-0.1); Basophils Percent Auto 0.7 % (0.2-1.2); Eosinophils Absolute Auto 0.1 K/mm3 (0-0.3); Eosinophils Percent Auto 1.7 % (0-4.4); Hematocrit 32.2 % (37.0-47.0); Hemoglobin 9.7 g/dL (12.0-15.0); Immature Granulocyte Absolute 0.07 K/mm3 (0.00-0.031); Immature Granulocyte Percent A 0.8 % (0-0.5); Lymphocytes Absolute Auto 1.29 K/mm3 (0.9-3.2); Lymphocytes Percent Auto 15.3 % (18.3-44.2); Mean Corpuscular HGB Conc 30.1 g/dl (32-36); Mean Corpuscular Hemoglobin 27.4 pg (26-34); Mean Platelet Volume 10.4 fl (7.4-10.4); Monocytes Absolute Auto 0.7 K/mm3 (0.1-0.6); Monocytes Percent Auto 8.2 % (2.6-8.5); Neutrophils Absolute Auto 6.2 K/mm3 (1.3-6.7); Neutrophils Percent Auto 73.3 % (45.5-73.1); Platelet Count Result 381 k/mm3 (150-375); Red Blood Count 3.54 M/mm3 (4.2-5.4); White Blood Count 8.4 K/mm3 (4.5-10.0)
== END 2020-09-02 14:26 | disposition home or self-care (01) ==
PROVIDERS: PCP Internal Medicine; Visit Provider Physician Assistant Medical
DX: D50.0 Iron deficiency anemia secondary to blood loss (chronic) (principal)
CPT/HCPCS: 36415; 85025

== ENCOUNTER 2020-10-03 01:31 | Outpatient (CLI) | payer MEDICARE, OTHER, SELFPAY ==
[2020-10-03 20:39] LABS: SARS-CoV-2 RNA PCR Negative
== END 2020-10-03 01:32 | disposition home or self-care (01) ==
LOC: ANHCOVIDDT 01:31
PROVIDERS: PCP Internal Medicine; Visit Provider Internal Medicine Gastroenterology
DX: Z01.818 Encounter for other preprocedural examination (principal); Z20.828 Contact with and (suspected) exposure to other viral communicable diseases
CPT/HCPCS: 87635; C9803; U0003

== ENCOUNTER 2020-10-06 01:25 | Day surgery (SDC) | payer MEDICARE, OTHER, SELFPAY ==
[2020-09-29 15:39] VITALS: BMI 26.6
--- NOTE | 2020-10-06 08:05 | WPDANESEPPF ---
Anes - Initial Pre Proc Eval Procedure: Operation Date: 10/06/20 10:00 Proposed Procedures p Esophagogastroduodenoscopy - Carlo Penaloza DO Date/Time: 10/06/20 08:05 Surgeon: Carlo Penaloza DO Pre Op Diagnosis: AVM Of Small Bowel Patient Data Age: 85 Gender: F Height: 1.57 m Weight: 66 kg Allergies Allergy/AdvReac Type Severity Reaction Status Date / Time No Known Allergies Allergy Verified 10/06/20 09:03 Home Medications Medication Instructions Recorded Confirmed Type furosemide 40 mg tablet 40 mg PO BID 09/21/19 09/29/20 History losartan 50 mg tablet 50 mg PO DAILY 09/21/19 09/29/20 History atorvastatin 20 mg PO DAILY 12/23/19 09/29/20 History potassium chloride 20 mEq 40 meq PO BID #120 tablet 08/15/20 09/29/20 Rx tablet,extended release amiodarone 200 mg tablet 400 mg PO DAILY tablet 08/23/20 09/29/20 History pantoprazole 40 mg tablet,delayed 40 mg PO HS #90 tablet 08/25/20 09/29/20 Rx release metoprolol tartrate 25 mg tablet 25 mg PO BID #180 tablet 08/31/20 09/29/20 Rx aspirin 325 mg PO DAILY 09/29/20 09/29/20 History clopidogrel 75 mg PO DAILY 09/29/20 09/29/20 History sucralfate 1 g PO ACHS 09/29/20 09/29/20 History Patient hx anesthesia problems: none Family hx anesthesia problems: none PMFSH Past Medical History Medical History (Updated 10/06/20 @ 09:10 by Carlo Penaloza DO) AVM (arteriovenous malformation) of duodenum, acquired Barretts esophagus Status post radiofrequency ablation. Bartholin cyst Status post excision. 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 Bland. Chronic anemia With history of blood transfusion. Chronic kidney disease Stage III. Baseline creatinine appears to fluctuate between 1.0 and 1.20. Colon cancer (1999) Status post right hemicolectomy. There was recurrence at the splenic fracture, which was resected in September [address] Duran. Coronary artery disease Cardiac catheterization June 2018 with high-grade stenosis in the proximal mid right coronary artery and mild stenosis of the mid LAD with bare metal stent placement due to history of GI bleeding Diastolic congestive heart failure Echocardiogram in September 2018 showed an ejection fraction of 70-75% with severe left atrial enlargement and moderate right atrial enlargement. GERD (gastroesophageal reflux disease) With history of peptic ulcers. History of atrial flutter Status post ablation of the cavo-tricuspid isthmus per Dr. Jaffe at [facility]. 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 Paroxysmal atrial fibrillation She is maintained on amiodarone. She had been on metoprolol in the past, but that was stopped due to bradycardia. She is on long-term anticoagulation with Eliquis. Her director of laboratory operations is Dr. Jake Bravo. Peptic ulcer disease With history of GI bleed. Spinal stenosis Uterine cancer Status post hysterectomy. Valvular heart disease Echocardiogram in September 2018 showed mild to moderate mitral valve regurgitation, mild aortic valve regurgitation, and moderate tricuspid regurgitation. Surgical History Surgical History H/O colonoscopy H/O right hemicolectomy With excision of 3 liver lesions in September 2016. She had a recurrence at the splenic fracture which was resected in September 2018. History of cardiac catheterization With placement of bare metal stent to the right coronary artery in 2009. History of cardiac radiofrequency ablation For atrial flutter per Dr. Jaffe at [facility]. History of cataract surgery Bilateral. History of esophagogastroduodenoscopy (EGD) History of total abdominal hysterectomy and bilateral salpingo-oophorectomy In 1999, reported
--- NOTE | 2020-10-06 09:04 | PM.IMHP ---
H&P: HPI History of Present Illness Date/Time: 10/06/20 09:04 Chief complaint: AVM Of Small Bowel Narrative: Reason for visit EGD. This very pleasant lady's seen at the request the primary physician. The patient was examined. Impression: History recurrent transfusion requiring anemia. She has had multiple AVMs of the duodenum. Gastric ulcer disease. GERD with Byrd's esophagus. Status post radiofrequency ablation. Intestinal metaplasia of the gastric mucosa. History colorectal cancer. Status post right hemicolectomy. Status post recurrent colon cancer with resection. Bladder malignancy. CKD. CAD status post stent placement. Valvular heart disease. CHF. Atrial fib/ flutter. He status post ablation. HLD. HTN. Pulmonary hypertension. Uterine cancer. Recommendation: EGD. History: This very pleasant lady's well known to myself. She has a history of Byrd's esophagus status post radiofrequency ablation. She also has intestinal metaplasia of the gastric mucosa. Patient has required periodic transfusions for anemia. She has had documented AVMs of the small bowel. She is here for follow-up endoscopy to assess need for further ablation. Patient has had history of colon cancer. She is status post resection x2. Physical examination: General: very pleasant patient in no acute distress. HEENT: Head was normocephalic sclerae is clear mouth without masses neck was supple. Heart: Rate Controlled. Murmur noted. sounds regular today. Lungs: CTA. Abdomen: Soft with no guarding or rigidity. Bowel sounds were active. Neurologic: Cranial nerves 2 through 12 intact. No focal defects. No clonus. Musculoskeletal system: Revealed no joint tenderness or swelling no muscle atrophy. Extremities: Reveal no significant edema. Skin: Warm and dry with normal turgor. Mental status: intact. Patient is alert and oriented. Review of Systems Review of Systems: All systems reviewed & are unremarkable except as noted in HPI and below [facility] Past Medical History Medical History (Updated 10/06/20 @ 09:10 by Carlo Penaloza DO) AVM (arteriovenous malformation) of duodenum, acquired Barretts esophagus Status post radiofrequency ablation. Bartholin cyst Status post excision. 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 Bland. Chronic anemia With history of blood transfusion. Chronic kidney disease Stage III. Baseline creatinine appears to fluctuate between 1.0 and 1.20. Colon cancer (1999) Status post right hemicolectomy. There was recurrence at the splenic fracture, which was resected in September [address] Duran. Coronary artery disease Cardiac catheterization June 2018 with high-grade stenosis in the proximal mid right coronary artery and mild stenosis of the mid LAD with bare metal stent placement due to history of GI bleeding Diastolic congestive heart failure Echocardiogram in September 2018 showed an ejection fraction of 70-75% with severe left atrial enlargement and moderate right atrial enlargement. GERD (gastroesophageal reflux disease) With history of peptic ulcers. History of atrial flutter Status post ablation of the cavo-tricuspid isthmus per Dr. Jaffe at [facility]. 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 Paroxysmal atrial fibrillation She is maintained on amiodarone. She had been on metoprolol in the past, but that was stopped due to bradycardia. She is on long-term anticoagulation with Eliquis. Her model maker plaster is Dr. Jake Bravo. Peptic ulcer disease With history of GI bleed. Spinal stenosis Uterine cancer Status post hysterectomy. Valvular heart disease Echocardiogram in September 2018 showed mild to m
[2020-10-06] MEDS: LACTATED RINGERS 1,000 ML 150 ML IV CONT (09:18)
[2020-10-06] MEDS: BENZOCAINE (*SP) 60 ML SPRAY CAN (HURRICAINE) 1 SPRAY MUCOUS MEM (09:45)
[2020-10-06 10:17] VITALS: BP 102/57; PULSE 82; RESP 22; O2SAT 94
[2020-10-06 10:27] VITALS: BP 102/56; PULSE 82; RESP 22; O2SAT 93
[2020-10-06 10:37] VITALS: BP 104/60; PULSE 78; RESP 18; O2SAT 93
== END 2020-10-06 10:56 | disposition home or self-care (01) ==
PROVIDERS: PCP Internal Medicine; Visit Provider Internal Medicine Gastroenterology
PROC: 0DJ08ZZ Inspection of Upper Intestinal Tract, Via Natural or Artificial Opening Endoscopic (ICD-10-PCS; CPT 43235; principal; 2020-10-06 10:00)
DX: K31.819 Angiodysplasia of stomach and duodenum without bleeding (principal); Z87.11 Personal history of peptic ulcer disease; D64.9 Anemia, unspecified; I13.0 Hypertensive heart and chronic kidney disease with heart failure and stage 1 through stage 4 chronic kidney disease, or unspecified chronic kidney disease; N18.30 Chronic kidney disease, stage 3 unspecified; I50.30 Unspecified diastolic (congestive) heart failure; K21.9 Gastro-esophageal reflux disease without esophagitis; E78.5 Hyperlipidemia, unspecified; I48.0 Paroxysmal atrial fibrillation; I08.3 Combined rheumatic disorders of mitral, aortic and tricuspid valves; I25.10 Atherosclerotic heart disease of native coronary artery without angina pectoris; Z85.038 Personal history of other malignant neoplasm of large intestine; Z85.51 Personal history of malignant neoplasm of bladder; Z90.49 Acquired absence of other specified parts of digestive tract; Z87.891 Personal history of nicotine dependence
CPT/HCPCS: 43270; J1642; J7120

== ENCOUNTER 2020-10-08 19:51 | Emergency (ER) | payer MEDICARE, OTHER, SELFPAY ==
--- NOTE | ~2020-10-08 | XR_ITS ---
EXAMINATION: XR chest 1V EXAM DATE: 10/08/2020 20:54 INDICATION: Check PICC line placement. TECHNIQUE: Portable AP frontal chest x-ray was obtained. Comparison is made to prior examination from 11/13/2019. FINDINGS: There is a [id number] PICC line with tip projecting over the cavoatrial junction. Th ere is a dual lead pacemaker/AICD seen with leads projecting over the expected locations of the right atrial appendage and right ventricle. Mild cardiomegaly. Right lower lobe granuloma. No confluent co nsolidation, pneumothorax or pleural effusion suspected. Mild lumbar scoliosis. IMPRESSION: 1. PICC line in position. 2. Mild cardiomegaly. Reviewed, dictated and finalized at location G. [facility]
[2020-10-08 20:08] VITALS: BP 143/83; PULSE 89; RESP 18; TEMP 36.6; O2SAT 97
--- NOTE | 2020-10-08 20:18 | PC.NURSE ---
Patient to get chest xray for PICC placement verification prior to having blood drawn.
[2020-10-08 21:36] LABS: Basophils Percent Auto 0.6 % (0.2-1.2); Eosinophils Absolute Auto 0.2 K/mm3 (0-0.3); Eosinophils Percent Auto 2.6 % (0-4.4); Hematocrit 33.4 % (37.0-47.0); Hemoglobin 9.8 g/dL (12.0-15.0); Immature Granulocyte Absolute 0.06 K/mm3 (0.00-0.031); Immature Granulocyte Percent A 0.9 % (0-0.5); Lymphocytes Absolute Auto 0.66 K/mm3 (0.9-3.2); Lymphocytes Percent Auto 10.3 % (18.3-44.2); Mean Corpuscular HGB Conc 29.3 g/dl (32-36); Mean Corpuscular Hemoglobin 27.1 pg (26-34); Mean Corpuscular Volume 92.5 fl (80-100); Mean Platelet Volume 9.7 fl (7.4-10.4); Monocytes Absolute Auto 0.6 K/mm3 (0.1-0.6); Monocytes Percent Auto 8.9 % (2.6-8.5); Neutrophils Absolute Auto 4.9 K/mm3 (1.3-6.7); Neutrophils Percent Auto 76.7 % (45.5-73.1); Platelet Count Result 244 k/mm3 (150-375); Red Blood Count 3.61 M/mm3 (4.2-5.4); Red Cell Distribution Width 24.5 % (11.5-14.5); White Blood Count 6.4 K/mm3 (4.5-10.0)
[2020-10-08 21:47] LABS: Anisocytosis 2+ (NORMAL); Hypochromasia 2+ (NORMAL); Partial Thromboplastin Time 29.7 SECONDS (22.3-36.8); Platelet Estimate Adequate (Adequate)
[2020-10-08 21:52] LABS: Alanine Aminotransferase 12 U/L (4-35); Albumin Level 3.7 g/dL (3.5-5.1); Alkaline Phosphatase 135 U/L (38-126); Anion Gap 9 mmol/L (8-16); Aspartate Amino Transferase 21 U/L (14-36); Bilirubin,Total 0.3 mg/dL (0.2-1.3); Blood Urea Nitrogen 19 mg/dL (7-17); Calcium 7.7 mg/dL (8.4-10.2); Carbon Dioxide 26 mmol/L (22-30); Chloride 109 mmol/L (98-107); Estimated CRCL calculation 35 ml/min; Estimated Glomerular Filt Rate 53; Glucose 172 mg/dL (65-105); Sodium 144 mmol/L (137-145)
--- NOTE | 2020-10-08 22:58 | PC.NURSE ---
Patient comes to the ED intake desk at 2240 and states that she is going to leave before being seen by a provider. Her plan is to return tomorrow and be seen at that time. She was informed that she may return to the ED at any time for care and should come back for worsening symptoms.
== END 2020-10-08 22:40 | disposition left against medical advice (07) ==
LOC: ANHED 23:18
PROVIDERS: Emergency Provider Emergency Medicine; PCP Internal Medicine
DX: K92.2 Gastrointestinal hemorrhage, unspecified (principal)
CPT/HCPCS: 36415; 71045; 80053; 85025; 85610; 85730; 86850; 86880; 86900; 86901; 86902; 99199

== ENCOUNTER 2020-10-09 07:01 | Inpatient (IN) | payer MEDICARE, OTHER, SELFPAY ==
[2020-10-09] VITALS (17 sets, daily range): BP systolic 97–145; BP diastolic 51–83; PULSE 88–128; RESP 13–21; TEMP 35.9–37; O2SAT 93–100
--- NOTE | ~2020-10-09 | CT_ITS ---
EXAMINATION: CT chest abdomen pelvis w con EXAM DATE: 10/10/2020 16:30 INDICATION: bleeding and a history of colon cancer. Bladder cancer, skin cancer. PE. TECHNIQUE: Spiral CT of the chest, abdomen and pelvis was performed following intravenous injection o f 100 mL Omnipaque 350. Axial, coronal and sagittal images were reviewed. Coronal maximum intensity pixel images of chest reviewed. The dose-length product (DLP) for this examination was 720.68 mGy-c m. The exposure was tailored according to patient size (auto mA exposure control), and iterative rec onstruction (ASIR) was used as additional dose reduction technique. Comparison is made to prior exami nation from 12/15/2019. FINDINGS: CHEST: No central pulmonary emboli. Mild interlobular septal thickening, some interspersed groundglas s opacities, appearance most consistent with mild nonspecific interstitial pneumonitis pattern physic nuno lung disease. There is pacemaker/AICD device. Some pericardial recess fluid. There are no pleura l or pericardial effusions. Tracheobronchial tree is patent. There is no mediastinal, hilar or ax illary lymphadenopathy. There is no pneumothorax. Heart normal in size. There is mild coronary arterial calcification, arterial sclerosis. ABDOMEN PELVIS: The liver, spleen, adrenal glands and pancreas are unremarkable. Gallbladder is unre markable. No biliary obstruction. Portal and splenic veins are patent. Kidneys enhance symmetrical ly. There is no hydronephrosis. The uterus is not identified and has likely been surgically resect ed. The bladder is unremarkable. There is no retroperitoneal or pelvic lymphadenopathy. There is moderate scattered arteriosclerotic disease. Mild abdominal aortic ectasia. Status post right hemicolectomy. There is mild scattered colonic diverticulosis. There is no adjacen t inflammatory change to suggest diverticulitis. The stomach and small bowel are unremarkable. There is expected amount of colonic stool. No free intraperitoneal gas. There are no osteoblastic or o steolytic lesions identified. Mild to moderate central compression superior endplate of L4. IMPRESSION: 1. No acute chest, abdomen or pelvis findings. 2. Lung findings consistent with nonspecific interstitial pneumonitis pattern interstitial lung dise ase. Reviewed, dictated and finalized at location A. SUPERVISOR IMPRESSION: 1. No acute chest, abdomen or pelvis findings. 2. Lung findings consistent with nonspecific interstitial pneumonitis pattern interstitial lung disease.
--- NOTE | ~2020-10-09 | XR_ITS ---
EXAMINATION: XR chest 1V portable DATE: 10/10/2020 03:26 INDICATION: Central line placement. TECHNIQUE: A single frontal view of the chest was obtained. COMPARISON: Chest single view 10/08/2020, CT abdomen and pelvis 12/15/2019 FINDINGS: A calcified right lung nodule and calcified mediastinal lymph nodes are consistent with old granulomatous disease. There is a diffuse interstitial pattern, consistent with mild pulmonary edema . No pleural effusion or pneumothorax. Cardiomegaly is noted. There is a left chest wall pacer with l zana in the right atrium and right ventricle. A right upper extremity peripherally inserted central v enous catheter (PICC) is seen with tip at the superior cavoatrial junction. IMPRESSION: 1. PICC tip at superior cavoatrial junction. 2. Mild pulmonary edema. 3. Cardiomegaly. Reviewed, dictated and finalized at location A. OGY NURSE
--- NOTE | 2020-10-09 07:39 | ECG_ITS ---
Measurements Intervals [place] Rate: 125 P: [place]: 0 QRS: 45 QRSD: 91 T: 218 QT: 305 QTc: 440 Interpretive Statements ATRIAL FIBRILLATION WITH RAPID VENTRICULAR RESPONSE DELAYED PRECORDIAL R/S TRANSITION BORDERLINE ST-T WAVE ABNORMALITY IN DIFFUSE LEADS ABNORMAL ECG Electronically Signed On 10-09-2020 17:41:11 OUTSOLE PARAFFINER by Jj Obrien D.O.
--- NOTE | 2020-10-09 07:48 | ED.GENADULT ---
HPI - General Adult General Chief complaint: GI Bleed Stated complaint: gi bleed Time Seen by Provider: 10/09/20 07:21 Source: patient History of Present Illness HPI narrative: Patient is a 85 y/o female complaining of rectal bleeding starting 3 days ago. She states that she notices bright red blood with clots. She had 3 episodes of bleeding during last 24 hours ago. There is no alleviating or exacerbating factor. She has abdominal pain, vomiting or diarrhea. She has some weakness and SOB. Of note, she has history of A fib. She had a Watchman procedure done at [place] and she is on Plavix. Related Data Home Medications Medication Instructions Recorded Confirmed furosemide 40 mg tablet 40 mg PO BID 09/21/19 09/29/20 losartan 50 mg tablet 50 mg PO DAILY 09/21/19 09/29/20 atorvastatin 20 mg PO DAILY 12/23/19 09/29/20 amiodarone 200 mg tablet 400 mg PO DAILY tablet 08/23/20 09/29/20 aspirin 325 mg PO DAILY 09/29/20 09/29/20 clopidogrel 75 mg PO DAILY 09/29/20 09/29/20 sucralfate 1 g PO ACHS 09/29/20 09/29/20 Allergies Allergy/AdvReac Type Severity Reaction Status Date / Time No Known Allergies Allergy Verified 10/09/20 07:44 Review of Systems Constitutional: Constitutional: Denies chills, Denies fever(s), Denies headache(s) and Reports weakness Eyes: Eyes: Denies blurry vision ENT: Denies headache(s) and Denies neck pain Cardiovascular: Cardiovascular: Denies chest pain and Denies dyspnea Respiratory: Respiratory: Denies cough and Reports dyspnea Gastrointestinal: Gastrointestinal: Denies abdominal pain, Reports hematochezia, Denies diarrhea, Denies nausea and Denies vomiting Genitourinary: Genitourinary: Denies hematuria and Denies dysuria Musculoskeletal: Musculoskeletal: Denies back pain and Denies neck pain Neurologic: Denies headache(s) and Reports weakness PMFSH Past Medical History Medical History AVM (arteriovenous malformation) of duodenum, acquired Barretts esophagus Status post radiofrequency ablation. Bartholin cyst Status post excision. 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 Bland. Chronic anemia With history of blood transfusion. Chronic kidney disease Stage III. Baseline creatinine appears to fluctuate between 1.0 and 1.20. Colon cancer (1999) Status post right hemicolectomy. There was recurrence at the splenic fracture, which was resected in September [address] Duran. Coronary artery disease Cardiac catheterization June 2018 with high-grade stenosis in the proximal mid right coronary artery and mild stenosis of the mid LAD with bare metal stent placement due to history of GI bleeding Diastolic congestive heart failure Echocardiogram in September 2018 showed an ejection fraction of 70-75% with severe left atrial enlargement and moderate right atrial enlargement. GERD (gastroesophageal reflux disease) With history of peptic ulcers. History of atrial flutter Status post ablation of the cavo-tricuspid isthmus per Dr. Jaffe at [facility]. 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 Paroxysmal atrial fibrillation She is maintained on amiodarone. She had been on metoprolol in the past, but that was stopped due to bradycardia. She is on long-term anticoagulation with Eliquis. Her security assessor is Dr. Jake Bravo. Peptic ulcer disease With history of GI bleed. Spinal stenosis Uterine cancer Status post hysterectomy. Valvular heart disease Echocardiogram in September 2018 showed mild to moderate mitral valve regurgitation, mild aortic valve regurgitation, and moderate tricuspid regurgitation. Surgical History Surgical History H/O col
--- NOTE | 2020-10-09 07:58 | PC.NURSE ---
Pt reports right PICC line is [facility] [place], [place].
[2020-10-09 08:14] LABS: Basophils Percent Auto 0.5 % (0.2-1.2); Eosinophils Absolute Auto 0.2 K/mm3 (0-0.3); Eosinophils Percent Auto 2.5 % (0-4.4); Hematocrit 28.2 % (37.0-47.0); Hemoglobin 8.2 g/dL (12.0-15.0); Immature Granulocyte Absolute 0.04 K/mm3 (0.00-0.031); Immature Granulocyte Percent A 0.7 % (0-0.5); Lymphocytes Absolute Auto 0.57 K/mm3 (0.9-3.2); Lymphocytes Percent Auto 9.6 % (18.3-44.2); Mean Corpuscular HGB Conc 29.1 g/dl (32-36); Mean Corpuscular Hemoglobin 27.6 pg (26-34); Mean Corpuscular Volume 94.9 fl (80-100); Monocytes Absolute Auto 0.5 K/mm3 (0.1-0.6); Neutrophils Absolute Auto 4.6 K/mm3 (1.3-6.7); Neutrophils Percent Auto 77.7 % (45.5-73.1); Platelet Count Result 222 k/mm3 (150-375); Red Blood Count 2.97 M/mm3 (4.2-5.4); Red Cell Distribution Width 24.5 % (11.5-14.5); White Blood Count 5.9 K/mm3 (4.5-10.0)
[2020-10-09 08:17] LABS: INR 1.1; Prothrombin Time 14.4 Seconds (11.1-14.7)
[2020-10-09 08:18] LABS: Partial Thromboplastin Time 28.5 SECONDS (22.3-36.8)
[2020-10-09 08:22] LABS: Alanine Aminotransferase 11 U/L (4-35); Albumin Level 3.3 g/dL (3.5-5.1); Alkaline Phosphatase 117 U/L (38-126); Anion Gap 6 mmol/L (8-16); Aspartate Amino Transferase 21 U/L (14-36); Bilirubin,Total 0.3 mg/dL (0.2-1.3); Blood Urea Nitrogen 25 mg/dL (7-17); Calcium 7.6 mg/dL (8.4-10.2); Carbon Dioxide 25 mmol/L (22-30); Chloride 108 mmol/L (98-107); Estimated Glomerular Filt Rate 60; Glucose 181 mg/dL (65-105); Potassium 3.7 mmol/L (3.4-5.0); Sodium 139 mmol/L (137-145)
[2020-10-09 08:28] LABS: Anisocytosis 1+ (NORMAL); Hypochromasia 1+ (NORMAL); Platelet Estimate Adequate (Adequate)
--- NOTE | 2020-10-09 11:05 | PC.NURSE ---
Continue to await bed assignment. Pt made aware.
--- NOTE | 2020-10-09 12:07 | PC.NURSE ---
Per LYNDA Freeman, will continue to await bed assignment and floor is busy with multiple patients. Pt updated. Lunch tray ordered.
--- NOTE | 2020-10-09 13:01 | PC.NURSE ---
Lunch tray given. Continue to await bed assignment.
[2020-10-09] MEDS: METOPROLOL TARTRATE 50 MG TAB PO (13:22)
--- NOTE | 2020-10-09 14:16 | PC.NURSE ---
Pt ambulatory to bathroom, states had a large BM of blackish brown stool. Dr. Mcclure made aware. Pt denies pain or shortness of breath.
--- NOTE | 2020-10-09 15:10 | PC.NURSE ---
This RN in Rm 4 discharging a patient, and pt heard complaining loudly on cellphone that I'm just waiting and they're not doing a damn thing for me . After other patient d/c pt approached and again explained that we're waiting for her repeat hgb and hct to be drawn. Pt states I've never had to wait this long for anything . Explained that her hgb was at a normal level with the first draw, and that it's part of a series to be redrawn at 6 hrs, which will be 1630. Pt states is concerned because she had that large stool here where she passed more blood; reassurance given that ERP was made aware and also that we're watching her vital signs closely. Also apologized for the delay with getting the bed upstairs; that because of the pandemic the hospital is busy. Pt given reassurance that we're doing everything possible.
--- NOTE | 2020-10-09 16:33 | PC.NURSE ---
H&H drawn per series.
[2020-10-09 16:47] LABS: Hematocrit 27.6 % (37.0-47.0); Hemoglobin 8.1 g/dL (12.0-15.0)
--- NOTE | 2020-10-09 17:11 | PC.NURSE ---
Pt heard on phone while this RN in [facility] has had 4 bloody stools since she has arrived here this am. Clarified with patient that this is true, pt reports having dark and bright red stools. Continue to await repeat hemoglobin.
--- NOTE | 2020-10-09 17:50 | PC.NURSE ---
Bed assignment received, SBAR faxed.
--- NOTE | 2020-10-09 17:53 | PC.NURSE ---
food tray ordered for pt at this time
--- NOTE | 2020-10-09 18:15 | PC.NURSE ---
Attempt to call report to 3rd med surg.
--- NOTE | 2020-10-09 18:35 | PC.NURSE ---
This patient, Denise Segura, was admitted to 3 [facility] Surg Room 306-01. Patient/family oriented to hospital policies and general routines including ID bracelet, bed and alarms, visiting hours, pain management, procedures, bathroom and other care routines, personal items, smoking policy, room service/diet, and visiting hours. Information on how to activate the Rapid Response Team has been discussed. Patient/Family are encouraged to report perceived risks to care and to ask questions if they do not understand what they are told or what they should do.
--- NOTE | 2020-10-09 19:30 | PM.IMHP ---
H&P: HPI History of Present Illness Date/Time: 10/09/20 19:30 Chief complaint: Rectal bleeding. Narrative: Denise Segura is a pleasant 85-year-old female with history of chronic GI blood loss related to AV malformations with history of Byrd esophagus, peptic ulcers, GERD, colon cancer, anemia, atrial fibrillation, and several other comorbidities who presented to the emergency department earlier this morning from home with complaints of rectal bleeding. Due to ongoing GI blood loss, she had a Watchman device inserted in June 2020 at [place] and since that time she has been on dual anti-platelet therapy with aspirin and clopidogrel. She reports passing several bloody stools each day for the last 3 days and noticed bright red clots in her stool this morning and thus she came in for evaluation. It is not unusual for her to have dark stools on occasion given her history of AVMs but she has not had bright red clots like she had today. She is a patient of Dr. Penaloza and has had frequent endoscopies this year due to GI blood loss, with her most recent scope being on 10/06/2020 and at that time it was noted that her gastric ulcer had healed and several jejunal and duodenal AVMs which were cauterized. Other than fatigue, lightheadedness, mild dyspnea on exertion, and frustration with ongoing problems, she has no complaints. She specifically denies abdominal pain, epigastric pain, nausea, and vomiting. Review of Systems Review of Systems: Narrative: Twelve systems were reviewed with pertinent positives and negatives as per HPI. No fever, chills, or sweats. No recent cold or flu symptoms. She denies chest pain, pleuritic pain, and palpitations. She will have some mild shortness of breath with exertion but nothing significant. No dysuria or hematuria. Except as documented, all other systems were reviewed and are negative. [facility], [facility] Past Medical History Medical History (Updated 10/09/20 @ 22:40 by Emily Pereira PA-C) AVM (arteriovenous malformation) of duodenum, acquired Barretts esophagus Status post radiofrequency ablation. Bartholin cyst Status post excision. 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 Bland. Chronic anemia With history of blood transfusion. Chronic kidney disease Stage III. Baseline creatinine appears to fluctuate between 1.0 and 1.20. Colon cancer (1999) Status post right hemicolectomy. There was recurrence at the splenic fracture, which was resected in September [address] Duran. Coronary artery disease Cardiac catheterization June 2018 with high-grade stenosis in the proximal mid right coronary artery and mild stenosis of the mid LAD with bare metal stent placement due to history of GI bleeding Diastolic congestive heart failure Echocardiogram in September 2018 showed an ejection fraction of 70-75% with severe left atrial enlargement and moderate right atrial enlargement. GERD (gastroesophageal reflux disease) With history of peptic ulcers. History of atrial flutter Status post ablation of the cavo-tricuspid isthmus per Dr. Jaffe at [facility]. 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 Paroxysmal atrial fibrillation She is maintained on amiodarone. She had been on metoprolol in the past, but that was stopped due to bradycardia. Given ongoing problems with chronic GI loss, a watchman device was inserted in June 2020 at [place]. Her morning caregiver is Dr. Jake Bravo. Peptic ulcer disease With history of GI bleed. 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 Uterine cancer Status post hysterectomy. Valvular heart disease Echocardiogram in September 2018 showed mild to moderate mitral valve regurgit
[2020-10-09 22:49] LABS: Hematocrit 26.9 % (37.0-47.0); Hemoglobin 7.8 g/dL (12.0-15.0)
[2020-10-10] VITALS (21 sets, daily range): BP systolic 85–130; BP diastolic 51–88; PULSE 77–115; RESP 15–27; TEMP 35.7–36.8; O2SAT 93–100; BMI 26.6
[2020-10-10] MEDS: PANTOPRAZOLE 40 MG TABLET PO ×2 (00:50→22:42)
[2020-10-10] MEDS: METOPROLOL TARTRATE 25 MG TABLET PO ×2 (00:50→10:00)
--- NOTE | 2020-10-10 03:40 | PC.NURSE ---
ARRIVES VIA BED OVERFLOW TRANSFER TO [facility] 6 MED/TELE STATUS PT. AWAKE AND ALERT, ORIENTED X 3 ON ARRIVAL. DENIES PAIN OR SOB. DENIES ABDOMINAL PAIN. ORIENTED TO ROOM, PLAN OF CARE. MONITOR AFIB. VSS. WILL CONTINUE TO MONITOR.
[2020-10-10] MEDS: SUCRALFATE 1 GM TABLET PO ×2 (08:14→19:38)
[2020-10-10 08:25] LABS: Hematocrit 23.6 % (37.0-47.0); Mean Corpuscular HGB Conc 28.8 g/dl (32-36); Mean Corpuscular Hemoglobin 28.1 pg (26-34); Mean Corpuscular Volume 97.5 fl (80-100); Mean Platelet Volume 10.5 fl (7.4-10.4); Platelet Count Result 210 k/mm3 (150-375); Red Blood Count 2.42 M/mm3 (4.2-5.4); Red Cell Distribution Width 24.9 % (11.5-14.5); White Blood Count 6.9 K/mm3 (4.5-10.0)
[2020-10-10 08:26] LABS: Anion Gap 1 mmol/L (8-16); Blood Urea Nitrogen 26 mg/dL (7-17); Calcium 7.6 mg/dL (8.4-10.2); Carbon Dioxide 28 mmol/L (22-30); Chloride 111 mmol/L (98-107); Estimated Glomerular Filt Rate 53; Glucose 179 mg/dL (65-105); Magnesium 2.7 mg/dL (1.6-2.3); Sodium 140 mmol/L (137-145)
[2020-10-10 08:31] LABS: INR 1.1; Prothrombin Time 14.5 Seconds (11.1-14.7)
[2020-10-10 08:32] LABS: Partial Thromboplastin Time 28.1 SECONDS (22.3-36.8)
[2020-10-10 08:36] LABS: Hemoglobin 6.8 g/dL (12.0-15.0)
--- NOTE | 2020-10-10 09:05 | PC.NURSE ---
OF .8.[address] HUGHES. CONDITION UPDATE GIVEN. ORDERS RECEIVED. WILL KEEP NPO. TO RECEIVE 1 UNIT PRBC'S. WILL CONTINUE TO MONITOR.
--- NOTE | 2020-10-10 09:45 | PC.NURSE ---
DR. MCGHEE HERE TO SEE PT. CONDITION UPDATE GIVEN. NOTIFIED OF AM LAB RESULTS AND NEW ORDERS FROM DR. HUGHES. OK TO HOLD LOSARTAN, POTASSIUM AND LASIX AT THIS TIME DUE TO BP LEVEL AND NPO STATUS. WILL CONTINUE TO MONITOR.
[2020-10-10] MEDS: AMIODARONE HCL 200 MG TABLET 400 MG PO (09:58)
[2020-10-10] MEDS: ATORVASTATIN 20 MG TABLET PO (09:59)
--- NOTE | 2020-10-10 10:53 | PM.IMPN ---
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 She also is taking Plavix and ASA. She follows with Dr Penaloza. EGD planned for later today. ContinueProtonix. Follow up: EGD showing active bleeding from previous APC ablation site. Continue PPI and Carafte. ASA and Plavix on hold. CT Ch/A/P showing no acute process. The CXR findings consistent with ILD. (2) Acute on chronic anemia: Code(s): D64.9 - Anemia, unspecified Status: Acute Assessment and Plan: Hgb in the 8 range on admission but has dropped to 6.8. Transfusion ordered. Contineu to trend HH post transfusion. (3) Atrial fibrillation: Qualifiers: Atrial fibrillation type: unspecified Qualified Code(s): I48.91 - Unspecified atrial fibrillation Code(s): I48.91 - Unspecified atrial fibrillation Status: Acute Assessment and Plan: Patient has cAFib s/p Watchman Procedure. HR controlled with metoprolol and Amiodarone. She is on ASA and Plavix. Continue to monitor on tele. (4) Hypertension: Qualifiers: Hypertension type: essential hypertension Qualified Code(s): I10 - Essential (primary) hypertension Code(s): I10 - Essential (primary) hypertension Status: Chronic Assessment and Plan: Patient's blood pressure was reviewed on 10/10. Blood pressure remains well controlled. Will continue current medications with metoprolol and cozaar. (5) Hyperglycemia: Code(s): R73.9 - Hyperglycemia, unspecified Status: Acute Assessment and Plan: The patient's blood glucose was reviewed on 10/10 Glucose was elevated on admission. A1c 5.0 however. Will start AccuCheks covering with sliding scale. Hypoglycemia protocol available as needed. Continue to monitor. (6) DVT prophylaxis: Code(s): Z29.9 - Encounter for prophylactic measures, unspecified Status: Chronic Assessment and Plan: SCDs Subjective Date/time seen: 10/10/20 10:53 Interval history: Date of service 10/10 85yo female with hx of chronic anemia from GI blood loss related to AV malformations, Byrd esophagus, peptic ulcers, colon cancer, and atrial fibrillation s/p Watchman Procedure who presented with complaints of rectal bleeding. Patient has chronic anemia and has HH checks weekly. She has frequent transfusions either with PRBC or with iron infusion. her last PRBC transfusion was 2 weeks ago. She beleives that she has blood transfusions 1x/month on average. last colo was in November showing polyp and IH. Last EGD was last week (10/06) showing jejunal and duodenal AVMs and healing gastric ulcers. She is on ASA and Plavix. Has had 2 BMs since admission and they are more dark red color. No CP but does feel SOB but this is more of a chronic symptom given her chronic anemia. No anosmia or dysgeusia. Last COVID test was negative one week ago. no exposures. No cough Exam Narrative: Exam Narrative: AF 97.4 100/70 101 16 100% ra Gen - NARD lyine semi recumbent in bed Chest - few basilar rhonchi o/w Clear, nml RR CV - Irregularly irregular. S1-S2. Telemetry showing atrial fibrillation with controlled rate. Abd - Soft, NT/ND, Positive BS Ext - No pedal edema, 2+ DP bilaterally Neuro - Alert and oriented. Nonfocal exam. Psych - Nml mood and affect Skin - Warm and dry Objective Data Vital Signs Vital Signs: Vital Signs - 24 hr 10/09/20 11:16 10/09/20 11:36 10/09/20 13:21 Temperature Pulse Rate 114 H 128 H Respiratory Rate 18 16 Blood Pressure 107/64 124/59 L 110/69 Pulse Oximetry 96 97 10/09/20 13:22 10/09/20
--- NOTE | 2020-10-10 13:43 | WPDANESEPPF ---
Anes - Initial Pre Proc Eval Procedure: Operation Date: 10/10/20 14:00 Proposed Procedures p Esophagogastroduodenoscopy - Carlo Fonseca DO [place] Date/Time: 10/10/20 13:43 Surgeon: Champ Marques MD Pre Op Diagnosis: Rectal bleeding. Patient Data Age: 85 Gender: F Height: Weight: 66.1 kg Last Vital Signs Temp 98 F 10/10/20 12:00 Pulse 105 H 10/10/20 12:00 Resp 18 10/10/20 12:00 BP 93/70 L 10/10/20 12:00 Pulse Ox 98 10/10/20 12:00 Allergies Allergy/AdvReac Type Severity Reaction Status Date / Time No Known Allergies Allergy Verified 10/10/20 13:59 Home Medications Medication Instructions Recorded Confirmed Type furosemide 40 mg tablet 40 mg PO BID 09/21/19 10/09/20 History losartan 50 mg tablet 50 mg PO DAILY 09/21/19 10/09/20 History atorvastatin 20 mg PO DAILY 12/23/19 10/09/20 History potassium chloride 20 mEq 40 meq PO BID #120 tablet 08/15/20 10/09/20 Rx tablet,extended release amiodarone 200 mg tablet 400 mg PO DAILY tablet 08/23/20 10/09/20 History pantoprazole 40 mg tablet,delayed 40 mg PO HS #90 tablet 08/25/20 10/09/20 Rx release metoprolol tartrate 25 mg tablet 25 mg PO BID #180 tablet 08/31/20 10/09/20 Rx aspirin 325 mg PO DAILY 09/29/20 10/09/20 History clopidogrel 75 mg PO DAILY 09/29/20 10/09/20 History sucralfate 1 g PO ACHS 09/29/20 10/09/20 History Laboratory Tests 10/09/20 10/09/20 10/10/20 16:30 22:31 08:09 WBC 6.9 K/mm3 K/mm3 (4.5-10.0) RBC 2.42 M/mm3 L M/mm3 (4.2-5.4) Hgb 8.1 g/dL L g/dL 7.8 g/dL L g/dL 6.8 g/dL L* g/dL (12.0-15.0) (12.0-15.0) (12.0-15.0) Hct 27.6 % L % 26.9 % L % 23.6 % L % (37.0-47.0) (37.0-47.0) (37.0-47.0) MCV 97.5 fl fl (80-100) MCH 28.1 pg pg (26-34) MCHC 28.8 g/dl L g/dl (32-36) RDW 24.9 % H % (11.5-14.5) Plt Count 210 k/mm3 k/mm3 (150-375) MPV 10.5 fl H fl (7.4-10.4) PT INR APTT Sodium Potassium Chloride Carbon Dioxide Anion Gap BUN Creatinine Estim Creat Clear Calc Estimated GFR Glucose Hemoglobin A1c Calcium Magnesium 10/10/20 10/10/20 10/10/20 08:09 08:09 08:09 WBC RBC Hgb Hct MCV MCH MCHC RDW Plt Count MPV PT 14.5 Seconds Seconds (11.1-14.7) INR 1.1 APTT 28.1 SECONDS SECONDS (22.3-36.8) Sodium 140 mmol/L mmol/L (137-145) Potassium 4.0 mmol/L mmol/L (3.4-5.0) Chloride 111 mmol/L H mmol/L (98-107) Carbon Dioxide 28 mmol/L mmol/L (22-30) Anion Gap 1 mmol/L L mmol/L (8-16) BUN 26 mg/dL H mg/dL (7-17) Creatinine 1.00 mg/dL mg/dL (0.7-1.0) Estim Creat Clear Calc Not Reportable Estimated GFR 53 L (59 - ) Glucose 179 mg/dL H mg/dL (65-105) Hemoglobin A1c 5.0 % % (<5.7) Calcium 7.6 mg/dL L mg/dL (8.4-10.2) Magnesium 2.7 mg/dL H mg/dL (1.6-2.3) Patient hx anesthesia problems: none Family hx anesthesia problems: none [facility] Past Medical History Medical History (Updated 10/09/20 @ 22:40 by Emily Pereira PA-C) AVM (arteriovenous malformation) of duodenum, acquired Barretts esophagus Status post radiofrequency ablation. Bartholin cyst Status post excision. 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 Bland. Chronic anemia With history of blood transfusion. Chronic kidney disease Stage III. Baseline creatinine appears to fluctuate between 1.0 and 1.20. Colon cancer (1999) Status post [facility]
--- NOTE | 2020-10-10 13:45 | PC.NURSE ---
DOWN TO GI LAB FOR EGD. STILL AWAIT UNIT OF PRBC'S TO BE TRANSFUSED; UNIT NOT AVAILABLE YET DUE TO ANTIBODY SCREEN.
[2020-10-10] MEDS: LACTATED RINGERS 1,000 ML 150 ML IV CONT (13:55)
--- NOTE | 2020-10-10 14:42 | WPDGICN ---
GI Consult Note Consult date/time: 10/10/20 14:42 HPI: Reason for consultation GI bleeding. This very pleasant lady seen in consultation request of the primary physician. The patient was examined and chart review. Impression: History recurrent transfusion requiring anemia. She has had multiple AVMs of the duodenum. Patient developed recurrent bleeding after recent APC ablation of AVMs. Anemia secondary to GI bleeding. Gastric ulcer disease. GERD with Byrd's esophagus. Status post radiofrequency ablation. Intestinal metaplasia of the gastric mucosa. History colorectal cancer. Status post right hemicolectomy. Status post recurrent colon cancer with resection. Bladder malignancy. CKD. CAD status post stent placement. Valvular heart disease. CHF. Atrial fib/ flutter. He status post ablation. HLD. HTN. Pulmonary hypertension. Uterine cancer. Recommendation: Follow hemoglobin hematocrit. PPI. Will proceed with EGD to assess the bleeding site. Patient eventually needs a colonoscopy. History: This very pleasant lady is well known to myself. She has a history of multiple blood transfusions for recurrent anemia. She has had multiple AVMs of the duodenum and jejunum. She recently had APC ablation of AVMs. She developed recurrent bleeding the day of admission. She denies any nausea, vomiting, abdominal pain, indigestion or heartburn. Patient was admitted the hospital when she was found to be anemic. GI consultation was obtained. The patient does have an extensive history of colorectal cancer is status post right hemicolectomy and surgical resection for recurrent colon cancer. She has a history of reflux disease with Byrd's esophagus in the status post radiofrequency ablation. He does have intestinal metaplasia of the gastric mucosa. Physical examination: General: very pleasant patient in no acute distress. HEENT: Head was normocephalic sclerae is clear mouth without masses neck was supple. Heart: Rate rhythm regular without S3 or S4. Lungs: CTA. Abdomen: Soft with no guarding or rigidity. Bowel sounds were active. Neurologic: Cranial nerves 2 through 12 intact. No focal defects. No clonus. Musculoskeletal system: Revealed no joint tenderness or swelling no muscle atrophy. Extremities: Reveal no significant edema. Skin: Warm and dry with normal turgor. Mental status: intact. Patient is alert and oriented. Review of Systems Review of Systems: All systems reviewed & are unremarkable except as noted in HPI and below [facility] Past Medical History Medical History (Updated 10/09/20 @ 22:40 by Emily Pereira PA-C) AVM (arteriovenous malformation) of duodenum, acquired Barretts esophagus Status post radiofrequency ablation. Bartholin cyst Status post excision. 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 Bland. Chronic anemia With history of blood transfusion. Chronic kidney disease Stage III. Baseline creatinine appears to fluctuate between 1.0 and 1.20. Colon cancer (2000) Status post right hemicolectomy. There was recurrence at the splenic fracture, which was resected in September [address] Duran. Coronary artery disease Cardiac catheterization June 2018 with high-grade stenosis in the proximal mid right coronary artery and mild stenosis of the mid LAD with bare metal stent placement due to history of GI bleeding Diastolic congestive heart failure Echocardiogram in September 2018 showed an ejection fraction of 70-75% with severe left atrial enlargement and moderate right atrial enlargement. GERD (gastroesophageal reflux disease) With history of peptic ulcers. History of atrial flutter Status post ablation of the cavo-tricuspid isthmus per Dr. Jaffe at [facility]. Hyperlipidemia Hypertension Intestinal metaplasia of gastric mucosa Moderate pulmonar
[2020-10-10] MEDS: EPINEPHrine INJ 1 MG/10 ML SYRINGE 4 MG XX (15:23)
[2020-10-10] MEDS: ONDANSETRON INJ 4 MG/2 ML VIAL IV PUSH (16:11)
--- NOTE | 2020-10-10 16:17 | SUR.PHASEII ---
Report given to Che RN by LYNDA Monique. pt transported to CT by Kym HOWELL. Pt reports relief from nausea after digital media representative.
--- NOTE | 2020-10-10 16:30 | PC.NURSE ---
S/P EGD AND CT SCAN OF ABD/PELVIS. RETURNS TO [facility] 6 VIA STRETCHER. DENIES PAIN OR SOB AT THIS TIME. REPORTS EARLIER NAUSEA (POST EGD) IMPROVED. VSS. UP TO BATHROOM FOR VOID W/ BLOODY BM. WILL CONTINUE TO MONITOR. AWAIT ARRIVAL OF UNIT OF BLOOD FOR TRANSFUSION.
[2020-10-10 17:39] LABS: Mean Corpuscular Hemoglobin 28.2 pg (26-34); Mean Corpuscular Volume 97.2 fl (80-100); Mean Platelet Volume 10.5 fl (7.4-10.4); Platelet Count Result 219 k/mm3 (150-375); Red Blood Count 2.16 M/mm3 (4.2-5.4); Red Cell Distribution Width 24.8 % (11.5-14.5); White Blood Count 10.4 K/mm3 (4.5-10.0)
[2020-10-10 17:41] LABS: Hemoglobin 6.1 g/dL (12.0-15.0)
[2020-10-10 17:52] LABS: Alanine Aminotransferase 10 U/L (4-35); Albumin Level 2.7 g/dL (3.5-5.1); Alkaline Phosphatase 88 U/L (38-126); Anion Gap 3 mmol/L (8-16); Aspartate Amino Transferase 20 U/L (14-36); Bilirubin,Total 0.2 mg/dL (0.2-1.3); Blood Urea Nitrogen 26 mg/dL (7-17); Calcium 7.5 mg/dL (8.4-10.2); Carbon Dioxide 26 mmol/L (22-30); Chloride 108 mmol/L (98-107); Estimated Glomerular Filt Rate 60; Glucose 203 mg/dL (65-105); Potassium 3.9 mmol/L (3.4-5.0); Sodium 137 mmol/L (137-145)
[2020-10-10 18:22] LABS: Carcinoembryonic Antigen 7.9 ng/mL (0.0-3.0)
--- NOTE | 2020-10-10 19:30 | PC.NURSE ---
Dr. Penaloza notified of H/h, made MD aware that previous unit is still not transfused because it is on its way here from [place] due to patient having antibodies. Dr. Penaloza inquired about having a second unit on hold, called blood bank, they don't order units on hold but additional units shouldn't take as long now that her antibodies have been identified.
[2020-10-10 22:53] LABS: Glucose Point of Care 164 (65-105)
[2020-10-11] VITALS (11 sets, daily range): BP systolic 93–118; BP diastolic 62–68; PULSE 77–104; RESP 14–18; TEMP 36.1–36.8; O2SAT 96–100
[2020-10-11 01:36] LABS: Hemoglobin 7.1 g/dL (12.0-15.0)
--- NOTE | 2020-10-11 04:48 | WPDGIPROGNO ---
Subjective Date/time seen: 10/11/20 04:48 The patient feeling better. No further bleeding since last evening. Hemoglobin and hematocrit have increased. Overall she is doing better. No abdominal pain, nausea, vomiting. Review of Systems Review of Systems: All systems reviewed & are unremarkable except as noted in HPI and below Exam Narrative: Exam Narrative: General: very pleasant patient in no acute distress. HEENT: Head was normocephalic sclerae is clear mouth without masses neck was supple. Heart: Rate rhythm regular without S3 or S4. Lungs: CTA. Abdomen: Soft with no guarding or rigidity. Bowel sounds were active. Neurologic: Cranial nerves 2 through 12 intact. No focal defects. No clonus. Musculoskeletal system: Revealed no joint tenderness or swelling no muscle atrophy. Extremities: Reveal no significant edema. Skin: Warm and dry with normal turgor. Mental status: intact. Patient is alert and oriented. Impression: History recurrent transfusion requiring anemia. She has had multiple AVMs of the duodenum. Patient developed recurrent bleeding after recent APC ablation of AVMs. Anemia secondary to GI bleeding. Gastric ulcer disease. GERD with Byrd's esophagus. Status post radiofrequency ablation. Intestinal metaplasia of the gastric mucosa. History colorectal cancer. Status post right hemicolectomy. Status post recurrent colon cancer with resection. Elevated CEA. Bladder malignancy. CKD. CAD status post stent placement. Valvular heart disease. CHF. Atrial fib/ flutter. He status post ablation. HLD. HTN. Pulmonary hypertension. Uterine cancer. Recommendation: Follow hemoglobin hematocrit. Increase diet to full liquids. The patient will be getting a colonoscopy in the near future. Will hold Plavix. Await a.m. laboratory studies. Objective Data Vital Signs Vital Signs: Vital Signs - 24 hr 10/10/20 06:00 10/10/20 08:00 10/10/20 09:58 Temperature Pulse Rate 97 106 H 101 H Respiratory Rate Blood Pressure Pulse Oximetry 10/10/20 10:00 10/10/20 12:00 10/10/20 13:30 Temperature 36.6 C Pulse Rate 101 H 99 97 Respiratory Rate 18 Blood Pressure 93/70 L Pulse Oximetry 98 10/10/20 14:01 10/10/20 15:30 10/10/20 15:40 Temperature 36.1 C L Pulse Rate 77 98 98 Respiratory Rate 15 27 H 18 Blood Pressure 101/72 125/75 128/83 Pulse Oximetry 100 93 94 10/10/20 15:50 10/10/20 16:00 10/10/20 16:40 Temperature 36.3 C L Pulse Rate 111 H 115 H 99 Respiratory Rate 25 H 25 H 19 Blood Pressure 118/74 130/88 103/75 Pulse Oximetry 98 97 98 10/10/20 16:53 10/10/20 18:00 10/10/20 20:00 Temperature 35.7 C L Pulse Rate 106 H 102 H 100 Respiratory Rate 18 Blood Pressure 88/51 L Pulse Oximetry 99 10/10/20 20:45 10/10/20 21:00 10/10/20 22:00 Temperature 35.9 C L 36.4 C 36.8 C Pulse Rate 100 102 H 95 Respiratory Rate 19 19 15 Blood Pressure 85/63 L 95/53 L 118/74 Pulse Oximetry 100 100 100 10/10/20 23:00 10/11/20 00:00 Temperature 36.4 C L 36.6 C Pulse Rate 104 H 97 Respiratory Rate 20 14 Blood Pressure 108/69 93/68 L Pulse Oximetry 100 96 Intake/Output Intake/Output: Intake & Output 10/08/20 10/09/20 10/10/20 10/11/20 23:59 23:59 23:59 23:59 Intake Total 240 530 350 Balance 240 530 350 Meds/Results Medications: Active Medications Generic Name Dose Route Start Last Admin Trade Name Freq PRN Reason Stop Dose Admin Amiodarone HCl 400 mg 10/10/20 08:00 10/10/20 09:58 Amiodarone Hcl 200 Mg Tablet PO 400 mg DAILY@0800 DARWIN Administration Atorvastatin Calcium 20 mg 10/10/20 09:00 10/10/20 09:59 Atorvastatin 20 Mg Tablet PO 20 mg DAILY DARWIN Administration Dextrose 12.5 gm 10/10/20 19:07 Dextrose 50% 25 Gm/50 Ml Syringe IV PUSH PRN PRN Hypoglycemia Protocol Furosemide 40 mg 10/10/20 09:00 10/10/20 22:05 Furosemide 40 Mg Tablet PO Not Given BID DARWIN Glucagon 1
[2020-10-11 05:17] LABS: Hematocrit 24.1 % (37.0-47.0); Hemoglobin 7.2 g/dL (12.0-15.0); Mean Corpuscular HGB Conc 29.9 g/dl (32-36); Mean Corpuscular Hemoglobin 28.1 pg (26-34); Mean Corpuscular Volume 94.1 fl (80-100); Mean Platelet Volume 10.4 fl (7.4-10.4); Platelet Count Result 206 k/mm3 (150-375); Red Blood Count 2.56 M/mm3 (4.2-5.4); Red Cell Distribution Width 22.3 % (11.5-14.5); White Blood Count 7.1 K/mm3 (4.5-10.0)
[2020-10-11 05:39] LABS: Alanine Aminotransferase 9 U/L (4-35); Albumin Level 2.8 g/dL (3.5-5.1); Alkaline Phosphatase 98 U/L (38-126); Aspartate Amino Transferase 18 U/L (14-36); Bilirubin,Total 0.2 mg/dL (0.2-1.3); Magnesium 2.5 mg/dL (1.6-2.3); Phosphorus 2.1 mg/dL (2.5-4.5)
[2020-10-11 05:45] LABS: Alanine Aminotransferase 10 U/L (4-35); Albumin Level 2.8 g/dL (3.5-5.1); Alkaline Phosphatase 96 U/L (38-126); Anion Gap 5 mmol/L (8-16); Aspartate Amino Transferase 18 U/L (14-36); Bilirubin,Total 0.2 mg/dL (0.2-1.3); Blood Urea Nitrogen 19 mg/dL (7-17); Calcium 7.5 mg/dL (8.4-10.2); Carbon Dioxide 24 mmol/L (22-30); Chloride 111 mmol/L (98-107); Estimated CRCL calculation 34 ml/min; Estimated Glomerular Filt Rate 53; Glucose 120 mg/dL (65-105); Potassium 3.6 mmol/L (3.4-5.0); Sodium 140 mmol/L (137-145)
--- NOTE | 2020-10-11 06:47 | PC.NURSE ---
[id number] informed of latest lab results by Kimberly Little RN. No new orders received. Pt resting quietly. Will continue to monitor.
[2020-10-11 07:43] LABS: Iron 38 ug/dL (37-170)
[2020-10-11 07:54] LABS: Percent Iron Saturation 11 % (20-50)
[2020-10-11] MEDS: LOSARTAN POTASSIUM 50 MG TABLET PO (08:08)
[2020-10-11] MEDS: AMIODARONE HCL 200 MG TABLET 400 MG PO (08:08)
[2020-10-11] MEDS: ATORVASTATIN 20 MG TABLET PO (08:08)
[2020-10-11] MEDS: FUROSEMIDE 40 MG TABLET PO ×2 (08:08→16:37)
[2020-10-11] MEDS: POTASSIUM CHLORIDE 20 MEQ TABLET.ER 40 MEQ PO ×2 (08:09→16:38)
[2020-10-11 08:17] LABS: Glucose Point of Care 143 (65-105)
[2020-10-11] MEDS: METOPROLOL TARTRATE 25 MG TABLET PO ×2 (08:23→20:54)
[2020-10-11] MEDS: SUCRALFATE 1 GM TABLET PO ×3 (12:22→20:56)
[2020-10-11 12:29] LABS: Glucose Point of Care 152 (65-105)
--- NOTE | 2020-10-11 13:28 | PM.IMPN ---
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 She also is taking Plavix and ASA. She follows with Dr Penaloza. ContinueProtonix. Follow up: EGD 10/10 showing active bleeding from previous APC ablation site. Continue PPI and Carafte. ASA and Plavix on hold. CT Ch/A/P showing no acute process. The CXR findings consistent with ILD. bleeding site clipped and injected (2) Acute on chronic anemia: Code(s): D64.9 - Anemia, unspecified Status: Acute Assessment and Plan: Hgb in the 8 range on admission but has dropped to 6.1 and was transfused. today 7.2 and no further bleeding noted (3) Atrial fibrillation: Qualifiers: Atrial fibrillation type: unspecified Qualified Code(s): I48.91 - Unspecified atrial fibrillation Code(s): I48.91 - Unspecified atrial fibrillation Status: Acute Assessment and Plan: Patient has cAFib s/p Watchman Procedure. HR controlled with metoprolol and Amiodarone. She is on ASA and Plavix. Continue to monitor on tele. (4) Hypertension: Qualifiers: Hypertension type: essential hypertension Qualified Code(s): I10 - Essential (primary) hypertension Code(s): I10 - Essential (primary) hypertension Status: Chronic Assessment and Plan: Patient's blood pressure was reviewed on 10/11. Blood pressure remains well controlled. Will continue current medications with metoprolol and cozaar. (5) Hyperglycemia: Code(s): R73.9 - Hyperglycemia, unspecified Status: Acute Assessment and Plan: The patient's blood glucose was reviewed on 10/11 Glucose was elevated on admission. A1c 5.0 however. Will start AccuCheks covering with sliding scale. Hypoglycemia protocol available as needed. Continue to monitor. (6) DVT prophylaxis: Code(s): Z29.9 - Encounter for prophylactic measures, unspecified Status: Chronic Assessment and Plan: SCDs Subjective Date/time seen: 10/11/20 13:28 Interval history: Date of service 10/11 85yo female with hx of chronic anemia from GI blood loss related to AV malformations, Byrd esophagus, peptic ulcers, colon cancer, and atrial fibrillation s/p Watchman Procedure who presented with complaints of rectal bleeding. Patient has chronic anemia and has HH checks weekly. She has frequent transfusions either with PRBC or with iron infusion. her last PRBC transfusion was 2 weeks ago. She beleives that she has blood transfusions 1x/month on average. last colo was in November showing polyp and IH. Last EGD was last week (10/06) showing jejunal and duodenal AVMs and healing gastric ulcers. She is on ASA and Plavix. Has had 2 BMs since admission and they are more dark red color. No CP but does feel SOB but this is more of a chronic symptom given her chronic anemia. No anosmia or dysgeusia. Last COVID test was negative one week ago. no exposures. No cough Exam Narrative: Exam Narrative: AF 97.4 114/68 76 16 100% ra Gen - NARD lying semi recumbent in bed Chest - few basilar rhonchi o/w Clear, nml RR CV - Irregularly irregular. S1-S2. Abd - Soft, NT/ND, Positive BS Ext - No pedal edema, 2+ DP bilaterally Neuro - Alert and oriented. Nonfocal exam. Psych - Nml mood and affect Skin - Warm and dry Objective Data Vital Signs Vital Signs: Vital Signs - 24 hr 10/10/20 13:30 10/10/20 14:01 10/10/20 15:30 Temperature 36.1 C L Pulse Rate 97 77 98 Respiratory Rate 15 27 H Blood Pressure 101/72 125/75 Pulse Oximetry 100 93 10/10/20 15:40 10/10/20 15:50 10/10/20 16:00 Temperature Pulse Rate 98 111
[2020-10-11] MEDS: POTASSIUM PHOS,M-BASIC-D-BASIC 20 MMOL in SODIUM CHLORIDE 0.9% IV 250 ML 62.5 MMOL IVPB (13:59)
[2020-10-11 14:05] LABS: Hematocrit 25.1 % (37.0-47.0); Hemoglobin 7.5 g/dL (12.0-15.0)
[2020-10-11 16:45] LABS: Glucose Point of Care 113 (65-105)
--- NOTE | 2020-10-11 17:50 | PC.NURSE ---
This patient, Denise Segura, was transferred to [facility] on 10/11/20 at 1750. Personal belongings sent with patient. Report given to Hyun. Appropriate documentation sent with patient.
[2020-10-11] MEDS: PANTOPRAZOLE 40 MG TABLET PO (20:54)
[2020-10-11 22:05] LABS: Glucose Point of Care 202 (65-105)
[2020-10-12] VITALS (14 sets, daily range): BP systolic 90–114; BP diastolic 53–64; PULSE 65–114; RESP 18–19; TEMP 36.2–36.9; O2SAT 92–98
[2020-10-12 01:05] LABS: Hematocrit 25.2 % (37.0-47.0); Hemoglobin 7.5 g/dL (12.0-15.0)
[2020-10-12 05:23] LABS: Basophils Percent Auto 0.7 % (0.2-1.2); Eosinophils Absolute Auto 0.1 K/mm3 (0-0.3); Eosinophils Percent Auto 2.1 % (0-4.4); Hematocrit 25.6 % (37.0-47.0); Hemoglobin 7.6 g/dL (12.0-15.0); Immature Granulocyte Absolute 0.06 K/mm3 (0.00-0.031); Immature Granulocyte Percent A 1.1 % (0-0.5); Immature Platelet Fraction Pct 5.4 % (0.9-11.2); Lymphocytes Absolute Auto 0.79 K/mm3 (0.9-3.2); Mean Corpuscular HGB Conc 29.7 g/dl (32-36); Mean Corpuscular Hemoglobin 28.8 pg (26-34); Mean Platelet Volume 10.7 fl (7.4-10.4); Monocytes Absolute Auto 0.5 K/mm3 (0.1-0.6); Neutrophils Absolute Auto 4.1 K/mm3 (1.3-6.7); Neutrophils Percent Auto 73.1 % (45.5-73.1); Nucleated Red Blood Cells Perc 0.7 % (0.0-0.2); Platelet Count Result 180 k/mm3 (150-375); Red Blood Count 2.64 M/mm3 (4.2-5.4); Red Cell Distribution Width 23.4 % (11.5-14.5); White Blood Count 5.6 K/mm3 (4.5-10.0)
[2020-10-12 05:32] LABS: Alanine Aminotransferase 11 U/L (4-35); Albumin Level 3.3 g/dL (3.5-5.1); Alkaline Phosphatase 103 U/L (38-126); Anion Gap 4 mmol/L (8-16); Aspartate Amino Transferase 21 U/L (14-36); Bilirubin,Total 0.3 mg/dL (0.2-1.3); Blood Urea Nitrogen 14 mg/dL (7-17); Calcium 7.4 mg/dL (8.4-10.2); Carbon Dioxide 28 mmol/L (22-30); Chloride 109 mmol/L (98-107); Estimated CRCL calculation 31 ml/min; Estimated Glomerular Filt Rate 47; Glucose 128 mg/dL (65-105); Phosphorus 2.8 mg/dL (2.5-4.5); Potassium 3.6 mmol/L (3.4-5.0); Sodium 141 mmol/L (137-145)
[2020-10-12] MEDS: SUCRALFATE 1 GM TABLET PO ×3 (05:39→19:59)
[2020-10-12 05:56] LABS: Glucose Point of Care 131 (65-105)
[2020-10-12 05:57] LABS: Hypochromasia 1+ (NORMAL); Ovalocytes 1+ (NORMAL); Platelet Estimate Adequate (Adequate); Polychromasia 1+ (NORMAL)
[2020-10-12 05:58] LABS: Large Platelets Present
[2020-10-12 08:01] LABS: Glucose Point of Care 282 (65-105)
[2020-10-12] MEDS: INSULIN ASPART (*BKC) 100 UNITS/ML SUB-Q (08:07)
[2020-10-12] MEDS: AMIODARONE HCL 200 MG TABLET 400 MG PO (08:12)
[2020-10-12] MEDS: POTASSIUM CHLORIDE 20 MEQ TABLET.ER 40 MEQ PO ×2 (08:13→16:37)
[2020-10-12] MEDS: LOSARTAN POTASSIUM 50 MG TABLET PO (08:16)
[2020-10-12] MEDS: ATORVASTATIN 20 MG TABLET PO (08:16)
[2020-10-12] MEDS: METOPROLOL TARTRATE 25 MG TABLET PO ×2 (08:16→19:59)
[2020-10-12] MEDS: FUROSEMIDE 40 MG TABLET PO ×2 (08:16→16:38)
--- NOTE | 2020-10-12 09:00 | PC.NURSE ---
Dr. Sherwood making rounds and notified of gi bleeding.
--- NOTE | 2020-10-12 10:35 | WPDGIPROGNO ---
Subjective Date/time seen: 10/12/20 10:35 Reason for consultation GI bleeding and anemia. Very pleasant lady's had 2 maroon colored stools this morning. The hemoglobin hematocrit have stabilized. No nausea, vomiting or abdominal pain. No other significant symptoms. Exam Narrative: General: very pleasant patient in no acute distress. HEENT: Head was normocephalic sclerae is clear mouth without masses neck was supple. Heart: Rate rhythm regular without S3 or S4. Lungs: CTA. Abdomen: Soft with no guarding or rigidity. Bowel sounds were active. Neurologic: Cranial nerves 2 through 12 intact. No focal defects. No clonus. Musculoskeletal system: Revealed no joint tenderness or swelling no muscle atrophy. Extremities: Reveal no significant edema. Skin: Warm and dry with normal turgor. Mental status: intact. Patient is alert and oriented. Impression: History recurrent transfusion requiring anemia. She has had multiple AVMs of the duodenum. Patient developed recurrent bleeding after recent APC ablation of AVMs. Anemia secondary to GI bleeding. Gastric ulcer disease. GERD with Byrd's esophagus. Status post radiofrequency ablation. Intestinal metaplasia of the gastric mucosa. History colorectal cancer. Status post right hemicolectomy. Status post recurrent colon cancer with resection. Elevated CEA. Nonspecific interstitial changes of the lungs. Bladder malignancy. CKD. CAD status post stent placement. Valvular heart disease. CHF. Atrial fib/ flutter. He status post ablation. HLD. HTN. Pulmonary hypertension. Uterine cancer. Recommendation: Continue follow hemoglobin hematocrit. Will give iron infusion. Will repeat EGD to assess for any continued bleeding. Patient's colonoscopy scheduled in a couple of weeks. Repeat laboratory studies. Review of Systems Review of Systems: All systems reviewed & are unremarkable except as noted in HPI and below Objective Data Vital Signs Vital Signs: Vital Signs - 24 hr 10/11/20 12:00 10/11/20 14:00 10/11/20 20:00 Temperature 36.2 C L Pulse Rate 90 104 H 91 Respiratory Rate 14 Blood Pressure 101/65 Pulse Oximetry 100 10/11/20 20:54 10/11/20 22:00 10/12/20 00:00 Temperature 36.1 C L Pulse Rate 86 81 98 Respiratory Rate 18 Blood Pressure 118/62 Pulse Oximetry 98 10/12/20 04:00 10/12/20 06:00 10/12/20 08:12 Temperature 36.6 C Pulse Rate 98 95 99 Respiratory Rate 18 Blood Pressure 114/56 L Pulse Oximetry 92 10/12/20 08:16 Temperature Pulse Rate 99 Respiratory Rate Blood Pressure Pulse Oximetry Intake/Output Intake/Output: Intake & Output 10/09/20 10/10/20 10/11/20 10/12/20 23:59 23:59 23:59 23:59 Intake Total 240 530 830 980 Balance 240 530 830 980 Meds/Results Medications: Active Medications Generic Name Dose Route Start Last Admin Trade Name Freq PRN Reason Stop Dose Admin Amiodarone HCl 400 mg 10/10/20 08:00 10/12/20 08:12 Amiodarone Hcl 200 Mg Tablet PO 400 mg DAILY@0800 DARWIN Administration Atorvastatin Calcium 20 mg 10/10/20 09:00 10/12/20 08:16 Atorvastatin 20 Mg Tablet PO 20 mg DAILY DARWIN Administration Dextrose 12.5 gm 10/10/20 19:07 Dextrose 50% 25 Gm/50 Ml Syringe IV PUSH PRN PRN Hypoglycemia Protocol Furosemide 40 mg 10/10/20 09:00 10/12/20 08:16 Furosemide 40 Mg Tablet PO 40 mg BID DARWIN Administration Glucagon 1 mg 10/10/20 19:07 Glucagon For Inj 1 Mg Vial IM PRN PRN Hypoglycemia Protocol Glucose 15 gm 10/10/20 19:07 Glucose Oral Gel 15 Gm Of Glucse In 37.5 Gm Tube PO PRN PRN Hypoglycemia Protocol Dextrose 1,000 mls @ 100 mls/hr 10/10/20 19:07 Dextrose 5% 1,000 Ml IVPB PRN PRN Hypoglycemia Protocol Insulin Aspart 3 - 6 units 10/11/20 08:00 10/12/20 08:07 Insulin Aspart (*Bkc) 100 Units/Ml SUB-Q 4 units TIDWM DARWIN Administration Protocol
--- NOTE | 2020-10-12 10:42 | PM.IMHP ---
H&P: HPI History of Present Illness Date/Time: 10/12/20 10:42 Chief complaint: Rectal bleeding. Narrative: Denise Segura is a 85 year old female [facility] Past Medical History Medical History (Updated 10/09/20 @ 22:40 by Emily Pereira PA-C) AVM (arteriovenous malformation) of duodenum, acquired Barretts esophagus Status post radiofrequency ablation. Bartholin cyst Status post excision. 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 Bland. Chronic anemia With history of blood transfusion. Chronic kidney disease Stage III. Baseline creatinine appears to fluctuate between 1.0 and 1.20. Colon cancer (1999) Status post right hemicolectomy. There was recurrence at the splenic fracture, which was resected in September [address] Duran. Coronary artery disease Cardiac catheterization June 2018 with high-grade stenosis in the proximal mid right coronary artery and mild stenosis of the mid LAD with bare metal stent placement due to history of GI bleeding Diastolic congestive heart failure Echocardiogram in September 2018 showed an ejection fraction of 70-75% with severe left atrial enlargement and moderate right atrial enlargement. GERD (gastroesophageal reflux disease) With history of peptic ulcers. History of atrial flutter Status post ablation of the cavo-tricuspid isthmus per Dr. Jaffe at [facility]. 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 Paroxysmal atrial fibrillation She is maintained on amiodarone. She had been on metoprolol in the past, but that was stopped due to bradycardia. Given ongoing problems with chronic GI loss, a watchman device was inserted in June 2020 at [facility]. Her kiln cleaner is Dr. Jake Bravo. Peptic ulcer disease With history of GI bleed. 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 Uterine cancer Status post hysterectomy. Valvular heart disease Echocardiogram in September 2018 showed mild to moderate mitral valve regurgitation, mild aortic valve regurgitation, and moderate tricuspid regurgitation. Surgical History Surgical History (Updated 10/09/20 @ 22:38 by Emily Pereira PA-C) Biventricular cardiac pacemaker in situ H/O colonoscopy H/O right hemicolectomy With excision of 3 liver lesions in September 2016. She had a recurrence at the splenic fracture which was resected in September 2018. History of cardiac catheterization With placement of bare metal stent to the right coronary artery in 2009. History of cardiac radiofrequency ablation For atrial flutter per Dr. Jaffe at [facility]. History of cataract surgery Bilateral. History of esophagogastroduodenoscopy (EGD) History of total abdominal hysterectomy and bilateral salpingo-oophorectomy In 1999, reportedly due to ?early? uterine cancer. Presence of Watchman left atrial appendage closure device S/P bladder tumor excision with fulguration For urothelial cell carcinoma, done in September [address] Bland. Status post left breast lumpectomy With benign pathology. Status post surgical removal of ganglion cyst Left volar wrist. Family History Family History Sibling Family history of transient ischemic attacks, Onset Age: 66 Patient's sister is in good health Patient's brother is Mother Acute myocardial infarction, Onset Age: 82 Family history of diabetes mellitus in first degree relative Patient's mother is Diabetes mellitus Father Family history of malignant neoplasm of brain, Onset Age: 6 Family history of malignant neoplasm of bone, Onset Age: 76 Patient's father is [place]
--- NOTE | 2020-10-12 10:42 | PM.IMHP ---
H&P: HPI History of Present Illness Date/Time: 10/12/20 10:42 Chief complaint: Rectal bleeding. Narrative: Denise Segura is a 85 year old female [facility] Past Medical History Medical History (Updated 10/09/20 @ 22:40 by Emily Pereira PA-C) AVM (arteriovenous malformation) of duodenum, acquired Barretts esophagus Status post radiofrequency ablation. Bartholin cyst Status post excision. 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 Bland. Chronic anemia With history of blood transfusion. Chronic kidney disease Stage III. Baseline creatinine appears to fluctuate between 1.0 and 1.20. Colon cancer (1999) Status post right hemicolectomy. There was recurrence at the splenic fracture, which was resected in September [address] Duran. Coronary artery disease Cardiac catheterization June 2018 with high-grade stenosis in the proximal mid right coronary artery and mild stenosis of the mid LAD with bare metal stent placement due to history of GI bleeding Diastolic congestive heart failure Echocardiogram in September 2018 showed an ejection fraction of 70-75% with severe left atrial enlargement and moderate right atrial enlargement. GERD (gastroesophageal reflux disease) With history of peptic ulcers. History of atrial flutter Status post ablation of the cavo-tricuspid isthmus per Dr. Jaffe at [facility]. 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 Paroxysmal atrial fibrillation She is maintained on amiodarone. She had been on metoprolol in the past, but that was stopped due to bradycardia. Given ongoing problems with chronic GI loss, a watchman device was inserted in June 2020 at [place]. Her lighting engineering technician is Dr. Jake Bravo. Peptic ulcer disease With history of GI bleed. 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 Uterine cancer Status post hysterectomy. Valvular heart disease Echocardiogram in September 2018 showed mild to moderate mitral valve regurgitation, mild aortic valve regurgitation, and moderate tricuspid regurgitation. Surgical History Surgical History (Updated 10/09/20 @ 22:38 by Emily Pereira PA-C) Biventricular cardiac pacemaker in situ H/O colonoscopy H/O right hemicolectomy With excision of 3 liver lesions in September 2016. She had a recurrence at the splenic fracture which was resected in September 2018. History of cardiac catheterization With placement of bare metal stent to the right coronary artery in 2009. History of cardiac radiofrequency ablation For atrial flutter per Dr. Jaffe at [facility]. History of cataract surgery Bilateral. History of esophagogastroduodenoscopy (EGD) History of total abdominal hysterectomy and bilateral salpingo-oophorectomy In 1999, reportedly due to ?early? uterine cancer. Presence of Watchman left atrial appendage closure device S/P bladder tumor excision with fulguration For urothelial cell carcinoma, done in September [address] Bland. Status post left breast lumpectomy With benign pathology. Status post surgical removal of ganglion cyst Left volar wrist. Family History Family History Sibling Family history of transient ischemic attacks, Onset Age: 66 Patient's sister is in good health Patient's brother is Mother Acute myocardial infarction, Onset Age: 82 Family history of diabetes mellitus in first degree relative Patient's mother is Diabetes mellitus Father Family history of malignant neoplasm of brain, Onset Age: 6 Family history of malignant neoplasm of bone, Onset Age: 76 Patient's father is Othe
--- NOTE | 2020-10-12 11:30 | PC.NURSE ---
To GI lab via stretcher with GI lab staff. Consent signed and on chart.
--- NOTE | 2020-10-12 11:30 | WPDANESEPPF ---
Anes - Initial Pre Proc Eval Procedure: Operation Date: 10/10/20 14:00 Proposed Procedures p Esophagogastroduodenoscopy - Carlo Fonseca Tremaine, Operation Date: 10/12/20 13:00 Proposed Procedures p Esophagogastroduodenoscopy - Carlo Fonseca Tremaine, Date/Time: 10/12/20 11:30 Surgeon: Champ Marques MD Pre Op Diagnosis: Rectal bleeding. Patient Data Age: 85 Gender: F Height: 1.57 m Weight: 67.4 kg Last Vital Signs Temp 36.6 C 10/12/20 06:00 Pulse 99 10/12/20 08:16 Resp 18 10/12/20 06:00 BP 114/56 L 10/12/20 06:00 Pulse Ox 92 10/12/20 06:00 Allergies Allergy/AdvReac Type Severity Reaction Status Date / Time No Known Allergies Allergy Verified 10/10/20 13:59 Home Medications Medication Instructions Recorded Confirmed Type furosemide 40 mg tablet 40 mg PO BID 09/21/19 10/09/20 History losartan 50 mg tablet 50 mg PO DAILY 09/21/19 10/09/20 History atorvastatin 20 mg PO DAILY 12/23/19 10/09/20 History potassium chloride 20 mEq 40 meq PO BID #120 tablet 08/15/20 10/09/20 Rx tablet,extended release amiodarone 200 mg tablet 400 mg PO DAILY tablet 08/23/20 10/09/20 History pantoprazole 40 mg tablet,delayed 40 mg PO HS #90 tablet 08/25/20 10/09/20 Rx release metoprolol tartrate 25 mg tablet 25 mg PO BID #180 tablet 08/31/20 10/09/20 Rx aspirin 325 mg PO DAILY 09/29/20 10/09/20 History clopidogrel 75 mg PO DAILY 09/29/20 10/09/20 History sucralfate 1 g PO ACHS 09/29/20 10/09/20 History Laboratory Tests 10/11/20 10/11/20 10/11/20 12:27 13:56 16:42 WBC RBC Hgb 7.5 g/dL L g/dL (12.0-15.0) Hct 25.1 % L % (37.0-47.0) MCV MCH MCHC RDW Plt Count MPV Immature Gran % (Auto) Neut % (Auto) Lymph % (Auto) [place] % (Auto) Eos % (Auto) Baso % (Auto) Lymph # (Auto) [place] # (Auto) Eos # (Auto) Baso # (Auto) Abs Immat Gran (auto) Absolute Neuts (auto) Absolute Nucleated RBC Nucleated RBC % Platelet Estimate Large Platelets % Immature Plt Fraction Polychromasia Hypochromasia Ovalocytes Sodium Potassium Chloride Carbon Dioxide Anion Gap BUN Creatinine Estim Creat Clear Calc Estimated GFR Glucose POC Capillary Glucose 152 mg/dl H mg/dl 113 mg/dl H mg/dl (65-105) (65-105) Calcium Phosphorus Total Bilirubin Direct Bilirubin AST ALT Alkaline Phosphatase Total Protein Albumin 10/11/20 10/12/20 10/12/20 21:05 00:56 05:15 WBC 5.6 K/mm3 K/mm3 (4.5-10.0) RBC 2.64 M/mm3 L M/mm3 (4.2-5.4) Hgb 7.5 g/dL L g/dL 7.6 g/dL L g/dL (12.0-15.0) (12.0-15.0) Hct 25.2 % L % 25.6 % L % (37.0-47.0) (37.0-47.0) MCV 97.0 fl fl (80-100) MCH 28.8 pg pg (26-34) MCHC 29.7 g/dl L g/dl (32-36) RDW 23.4 % H % (11.5-14.5) Plt Count 180 k/mm3 k/mm3 (150-375) MPV 10.7 fl H fl (7.4-10.4) Immature Gran % (Auto) 1.1 % H % (0-0.5) Neut % (Auto) 73.1 % % (45.5-73.1) Lymph % (Auto) 14.0 % L % (18.3-44.2) [place] % (Auto) 9.0 % H % (2.6-8.5) Eos % (Auto) 2.1 % % (0-4.4) Baso % (Auto) 0.7 % % (0.2-1.2) Lymph # (Auto) 0.79 K/mm3 L K/mm3 (0.9-3.2) [place] # (Auto) 0.5 K/mm3 K/mm3 (0.1-0.6) Eos # (Auto) 0.1 K/mm3 K/mm3 (0-0.3) Baso # (Auto) 0.0 K/mm3 K/mm3 (0.0-0.1) Abs Immat Gran (auto) 0.06 K/mm3 H
[2020-10-12 11:35] LABS: Hematocrit 25.9 % (37.0-47.0); Hemoglobin 7.8 g/dL (12.0-15.0); Mean Corpuscular HGB Conc 30.1 g/dl (32-36); Mean Corpuscular Hemoglobin 29.1 pg (26-34); Mean Corpuscular Volume 96.6 fl (80-100); Mean Platelet Volume 10.4 fl (7.4-10.4); Platelet Count Result 227 k/mm3 (150-375); Red Blood Count 2.68 M/mm3 (4.2-5.4); Red Cell Distribution Width 23.7 % (11.5-14.5); White Blood Count 6.6 K/mm3 (4.5-10.0)
[2020-10-12 11:36] LABS: Glucose Point of Care 101 (65-105)
[2020-10-12 11:42] LABS: Alanine Aminotransferase 13 U/L (4-35); Albumin Level 3.4 g/dL (3.5-5.1); Alkaline Phosphatase 105 U/L (38-126); Anion Gap 6 mmol/L (8-16); Aspartate Amino Transferase 23 U/L (14-36); Bilirubin,Total 0.3 mg/dL (0.2-1.3); Blood Urea Nitrogen 13 mg/dL (7-17); Calcium 7.5 mg/dL (8.4-10.2); Carbon Dioxide 28 mmol/L (22-30); Chloride 109 mmol/L (98-107); Estimated CRCL calculation 31 ml/min; Estimated Glomerular Filt Rate 47; Glucose 92 mg/dL (65-105); Potassium 3.9 mmol/L (3.4-5.0); Sodium 143 mmol/L (137-145)
[2020-10-12] MEDS: LACTATED RINGERS 1,000 ML 150 ML IV CONT (11:53)
--- NOTE | 2020-10-12 12:43 | PM.IMPN ---
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 She also was taking Plavix and ASA. She follows with Dr Penaloza. ContinueProtonix. Follow up: EGD 10/10 showing active bleeding from previous APC ablation site. Continue PPI and Carafate. ASA and Plavix on hold. CT Ch/A/P showing no acute process. The CXR findings consistent with ILD. bleeding site clipped and injected suspect blood she is seeing now is old blood because hgb remains unchanged Dr Penaloza to repeat EGD to ensure no active bleeding (2) Acute on chronic anemia: Code(s): D64.9 - Anemia, unspecified Status: Acute Assessment and Plan: Hgb in the 8 range on admission but has dropped to 6.1 and was transfused. today 7.8 (3) Atrial fibrillation: Qualifiers: Atrial fibrillation type: unspecified Qualified Code(s): I48.91 - Unspecified atrial fibrillation Code(s): I48.91 - Unspecified atrial fibrillation Status: Acute Assessment and Plan: Patient has cAFib s/p Watchman Procedure. HR controlled with metoprolol and Amiodarone. She was on ASA and Plavix. Continue to monitor on tele. (4) Hypertension: Qualifiers: Hypertension type: essential hypertension Qualified Code(s): I10 - Essential (primary) hypertension Code(s): I10 - Essential (primary) hypertension Status: Chronic Assessment and Plan: Patient's blood pressure was reviewed on 10/12. Blood pressure remains well controlled. Will continue current medications with metoprolol and cozaar. (5) Hyperglycemia: Code(s): R73.9 - Hyperglycemia, unspecified Status: Acute Assessment and Plan: The patient's blood glucose was reviewed on 10/12 Glucose was elevated on admission. A1c 5.0 however. AccuCheks covering with sliding scale. Hypoglycemia protocol available as needed. Continue to monitor. (6) DVT prophylaxis: Code(s): Z29.9 - Encounter for prophylactic measures, unspecified Status: Chronic Assessment and Plan: SCDs Subjective Date/time seen: 10/12/20 12:43 Interval history: Date of service 10/11 85yo female with hx of chronic anemia from GI blood loss related to AV malformations, Byrd esophagus, peptic ulcers, colon cancer, and atrial fibrillation s/p Watchman Procedure who presented with complaints of rectal bleeding. Patient has chronic anemia and has HH checks weekly. She has frequent transfusions either with PRBC or with iron infusion. her last PRBC transfusion was 2 weeks ago. She beleives that she has blood transfusions 1x/month on average. last colo was in November showing polyp and IH. Last EGD was last week (10/06) showing jejunal and duodenal AVMs and healing gastric ulcers. She states still bloody stools after eating yesterday and today. No abd pain , sob or cp Exam Narrative: Exam Narrative: AF 97.4 104/56 64 16 95 % ra Gen - NARD lying semi recumbent in bed Chest - clear CV - Irregularly irregular. S1-S2. Abd - Soft, NT/ND, Positive BS Ext - No pedal edema, 2+ DP bilaterally Neuro - Alert and oriented. Nonfocal exam. Psych - Nml mood and affect Skin - Warm and dry Objective Data Vital Signs Vital Signs: Vital Signs - 24 hr 10/11/20 14:00 10/11/20 20:00 10/11/20 20:54 Temperature 36.2 C L Pulse Rate 104 H 91 86 Respiratory Rate 14 Blood Pressure 101/65 Pulse Oximetry 100 10/11/20 22:00 10/12/20 00:00 10/12/20 04:00 Temperature 36.1 C L Pulse Rate 81 98 98 Respiratory Rate 18 Blood Pressure 118/62 Pulse Oximetry 98 10/12/20 06:00 10/12/20 08:00 10/12/20 08:12 Tem
[2020-10-12] MEDS: BENZOCAINE (*SP) 60 ML SPRAY CAN (HURRICAINE) 1 SPRAY MUCOUS MEM (12:55)
--- NOTE | 2020-10-12 14:00 | PC.NURSE ---
Patient returned from gi lab. Settled into room. No distress noted. No c/o pain.
[2020-10-12] MEDS: IRON SUCROSE COMPLEX 200 MG in SODIUM CHLORIDE 0.9% IV 50 ML 120 MG IVPB (14:24)
[2020-10-12 14:40] LABS: Glucose Point of Care 109 (65-105)
--- NOTE | 2020-10-12 16:39 | PC.NURSE ---
Patient does not want to have dinner. Had dinner at 1500 this afternoon. Refuses evening Carafate dose as she will not be eating. No blood glucose check due to patient eating at 1500.
[2020-10-12] MEDS: PANTOPRAZOLE 40 MG TABLET PO (19:59)
[2020-10-12] MEDS: CENTRAL LINE FLUSH 10 ML IV PUSH (20:01)
[2020-10-12 22:07] LABS: Glucose Point of Care 114 (65-105)
[2020-10-13] VITALS: PULSE 100
[2020-10-13 04:00] VITALS: BP 90/43; PULSE 107; PULSE 88; RESP 18; TEMP 37.3; O2SAT 98
[2020-10-13] MEDS: CENTRAL LINE FLUSH 10 ML IV PUSH (06:00)
[2020-10-13] MEDS: SUCRALFATE 1 GM TABLET PO (06:30)
[2020-10-13 07:27] LABS: Basophils Absolute Auto 0.1 K/mm3 (0.0-0.1); Basophils Percent Auto 0.8 % (0.2-1.2); Eosinophils Absolute Auto 0.2 K/mm3 (0-0.3); Eosinophils Percent Auto 2.4 % (0-4.4); Hematocrit 26.1 % (37.0-47.0); Hemoglobin 7.7 g/dL (12.0-15.0); Immature Granulocyte Absolute 0.05 K/mm3 (0.00-0.031); Immature Granulocyte Percent A 0.8 % (0-0.5); Lymphocytes Absolute Auto 0.56 K/mm3 (0.9-3.2); Lymphocytes Percent Auto 8.5 % (18.3-44.2); Mean Corpuscular HGB Conc 29.5 g/dl (32-36); Mean Corpuscular Hemoglobin 28.7 pg (26-34); Mean Corpuscular Volume 97.4 fl (80-100); Mean Platelet Volume 10.3 fl (7.4-10.4); Monocytes Absolute Auto 0.5 K/mm3 (0.1-0.6); Monocytes Percent Auto 7.5 % (2.6-8.5); Neutrophils Absolute Auto 5.3 K/mm3 (1.3-6.7); Platelet Count Result 262 k/mm3 (150-375); Red Blood Count 2.68 M/mm3 (4.2-5.4); Red Cell Distribution Width 23.7 % (11.5-14.5); White Blood Count 6.6 K/mm3 (4.5-10.0)
[2020-10-13 07:30] LABS: Glucose Point of Care 144 (65-105)
[2020-10-13 07:37] LABS: Anion Gap 4 mmol/L (8-16); Blood Urea Nitrogen 11 mg/dL (7-17); Calcium 7.6 mg/dL (8.4-10.2); Carbon Dioxide 30 mmol/L (22-30); Chloride 106 mmol/L (98-107); Estimated CRCL calculation 31 ml/min; Estimated Glomerular Filt Rate 47; Glucose 120 mg/dL (65-105); Potassium 3.9 mmol/L (3.4-5.0); Sodium 140 mmol/L (137-145)
[2020-10-13 08:00] VITALS: PULSE 117
[2020-10-13 08:18] VITALS: PULSE 76
[2020-10-13] MEDS: FUROSEMIDE 40 MG TABLET PO (08:18)
[2020-10-13] MEDS: AMIODARONE HCL 200 MG TABLET 400 MG PO (08:18)
[2020-10-13] MEDS: POTASSIUM CHLORIDE 20 MEQ TABLET.ER 40 MEQ PO (08:18)
[2020-10-13] MEDS: LOSARTAN POTASSIUM 50 MG TABLET PO (08:18)
[2020-10-13] MEDS: METOPROLOL TARTRATE 25 MG TABLET PO (08:18)
[2020-10-13] MEDS: ATORVASTATIN 20 MG TABLET PO (08:20)
[2020-10-13 08:26] LABS: Hypochromasia 1+ (NORMAL); Platelet Estimate Adequate (Adequate); Poikilocytosis 1+ (NORMAL)
--- NOTE | 2020-10-13 08:30 | WPDANESPN ---
Anes - Prog Note Post-Op Date/Time: 10/13/20 08:30 Cardiovascular status: normal Respiratory status: normal Airway patency: baseline Mental status: baseline Post-Op hydration status: normal Vital Signs: Last Vital Signs Temp 37.3 C 10/13/20 04:00 Pulse 76 10/13/20 08:18 Resp 18 10/13/20 04:00 BP 90/43 L 10/13/20 04:00 Pulse Ox 98 10/13/20 04:00 Pain Score (VAS): 0 I/O: Intake & Output 10/12/20 10/13/20 10/13/20 23:59 07:59 15:59 Intake Total 300 240 Balance 300 240 Laboratory Tests 10/13/20 05:50 10/13/20 05:50 10/12/20 10/12/20 10/12/20 11:16 11:16 11:34 WBC 6.6 RBC 2.68 L Hgb 7.8 L Hct 25.9 L MCV 96.6 MCH 29.1 MCHC 30.1 L RDW 23.7 H Plt Count 227 MPV 10.4 Immature Gran % (Auto) Neut % (Auto) Lymph % (Auto) [place] % (Auto) Eos % (Auto) Baso % (Auto) Lymph # (Auto) [place] # (Auto) Eos # (Auto) Baso # (Auto) Abs Immat Gran (auto) Absolute Neuts (auto) Absolute Nucleated RBC Nucleated RBC % Platelet Estimate Hypochromasia Poikilocytosis Sodium 143 Potassium 3.9 Chloride 109 H Carbon Dioxide 28 Anion Gap 6 L BUN 13 Creatinine 1.10 H Estim Creat Clear Calc 31 Estimated GFR 47 L Glucose 92 POC Capillary Glucose 101 Calcium 7.5 L Total Bilirubin 0.3 Direct Bilirubin 0.0 AST 23 ALT 13 Alkaline Phosphatase 105 Total Protein 6.0 L Albumin 3.4 L 10/12/20 10/12/20 10/13/20 14:27 20:09 05:50 WBC 6.6 RBC 2.68 L Hgb 7.7 L Hct 26.1 L MCV 97.4 MCH 28.7 MCHC 29.5 L RDW 23.7 H Plt Count 262 MPV 10.3 Immature Gran % (Auto) 0.8 H Neut % (Auto) 80.0 H Lymph % (Auto) 8.5 L [place] % (Auto) 7.5 Eos % (Auto) 2.4 Baso % (Auto) 0.8 Lymph # (Auto) 0.56 L [place] # (Auto) 0.5 Eos # (Auto) 0.2 Baso # (Auto) 0.1 Abs Immat Gran (auto) 0.05 H Absolute Neuts (auto) 5.3 Absolute Nucleated RBC 0.0 Nucleated RBC % 0.0 Platelet Estimate Adequate Hypochromasia 1+ Poikilocytosis 1+ Sodium Potassium Chloride Carbon Dioxide Anion Gap BUN Creatinine Estim Creat Clear Calc Estimated GFR Glucose POC Capillary Glucose 109 114 H Calcium Total Bilirubin Direct Bilirubin AST ALT Alkaline Phosphatase Total Protein Albumin 10/13/20 10/13/20 05:50 07:21 WBC RBC Hgb Hct MCV MCH MCHC RDW Plt Count MPV Immature Gran % (Auto) Neut % (Auto) Lymph % (Auto) [place] % (Auto) Eos % (Auto) Baso % (Auto) Lymph # (Auto) [place] # (Auto) Eos # (Auto) Baso # (Auto) Abs Immat Gran (auto) Absolute Neuts (auto) Absolute Nucleated RBC Nucleated RBC % Platelet Estimate Hypochromasia Poikilocytosis Sodium 140 Potassium 3.9 Chloride 106 Carbon Dioxide 30 Anion Gap 4 L BUN 11 Creatinine 1.10 H Estim Creat Clear Calc 31 Estimated GFR 47 L Glucose 120 H POC Capillary Glucose 144 H Calcium 7.6 L Total Bilirubin Direct Bilirubin AST ALT Alkaline Phosphatase Total Protein Albumin Post-procedural complaints: none Patient Feedback: Patient satisfied with anesthetic care.
[2020-10-13 10:17] VITALS: O2SAT 98
--- NOTE | 2020-10-13 18:03 | PM.DS ---
DS: Admitting Diagnosis Admitting Diagnosis Admitting Diagnosis: Rectal bleeding. 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 She also was taking Plavix and ASA. She follows with Dr Penaloza. ContinueProtonix. Follow up: EGD 10/10 showing active bleeding from previous APC ablation site. Continue PPI and Carafate. ASA and Plavix on hold. CT Ch/A/P showing no acute process. The CXR findings consistent with ILD. bleeding site clipped and injected Dr Penaloza to repeated EGD to ensure no active bleeding 10/12, and previous bleeding site was clean with no further bleeding Hemoglobin stable at 7.7 at discharge Aspirin to be resumed 1 month, Plavix to be resumed in 7-10 days She has a colonoscope exam scheduled in 2 weeks and will follow-up for CBC in 1 week (2) Acute on chronic anemia: Code(s): D64.9 - Anemia, unspecified Status: Acute Assessment and Plan: Hgb in the 8 range on admission but dropped to 6.1 and was transfused. Stable last 3 days without any further bleeding and 7.7 at discharge (3) Atrial fibrillation: Qualifiers: Atrial fibrillation type: unspecified Qualified Code(s): I48.91 - Unspecified atrial fibrillation Code(s): I48.91 - Unspecified atrial fibrillation Status: Acute Assessment and Plan: Patient has cAFib s/p Watchman Procedure. HR controlled with metoprolol and Amiodarone. She was on ASA and Plavix and to be held as above Continue to monitor on tele. (4) Hypertension: Qualifiers: Hypertension type: essential hypertension Qualified Code(s): I10 - Essential (primary) hypertension Code(s): I10 - Essential (primary) hypertension Status: Chronic Assessment and Plan: . Blood pressure remains well controlled. Will continue current medications with metoprolol and cozaar. (5) Hyperglycemia: Code(s): R73.9 - Hyperglycemia, unspecified Status: Acute Assessment and Plan: Glucose was elevated on admission. A1c 5.0 however. AccuCheks covering with sliding scale. Hypoglycemia protocol available as needed. Continue to monitor. DS: Summary Hospital Course Hospital Course: 85-year-old female with recurrent bleeding from AV malformations admitted with more brisk GI bleeding and found to have a bleeding site at a previous cauterization site. The area was clipped and injected at EGD. She had no further active bleeding and hemoglobin remained stable and repeating EGD 10/12 revealed no evidence of recurrent bleeding She is tolerating full liquid diet with normal bowel movements at discharge. She will return for CBC in 1 week. Hemoglobin 7.7 at discharge Time Spent with Patient Time attestation: Total time spent providing and/or coordinating discharge services: 35 minutes Exam Narrative: Exam Narrative: Condition on discharge Blood pressure 100/50 pulse 76 saturating 98% on room air afebrile Lungs clear CV regular rate rhythm Abdomen is soft nontender no masses Extremities without edema distal pulses are 2+ Neuro alert pleasant cooperative no focal deficits She was up and about without any complaints, tolerating a full liquid diet, and having normal bowel movements without further bleeding, able to be discharged home in stable condition DS: Data Data Completed and Pending Labs on day of discharge: Labs from last 24 hours 10/13/20 10/13/20 10/13/20 07:21 05:50 05:50 WBC 6.6 RBC 2.68 L Hgb 7.7 L Hct 26.1 L MCV 97.4 MCH 28.7 MCHC 29.5 L RDW 23.7 H Plt Count 262 MPV 10.3 Immature Gran % (Auto) 0.8 H Neut
[2020-10-14 13:57] LABS: Vitamin D 1,25 (OH)2 Total <8 pg/mL (18-72); Vitamin D2 1,25 (OH)2 <8 pg/mL; Vitamin D3 1,25 (OH)2 <8 pg/mL
[2020-10-16 23:38] LABS: Vitamin D 1,25 (OH)2 Total <8 pg/mL (18-72); Vitamin D2 1,25 (OH)2 <8 pg/mL; Vitamin D3 1,25 (OH)2 <8 pg/mL
== END 2020-10-13 10:55 | disposition home or self-care (01) | DRG 378 ==
LOC: ANHED 07:29 → ANH3MEDSUR 17:50 → ANHCPC 10-10 03:52 → ANH2MED 10-12 10:47 → ANHCPC 10-17 17:35
PROVIDERS: Internal Medicine; Internal Medicine Gastroenterology; Physician Assistant; Admitting Provider Family Medicine; Emergency Provider Emergency Medicine; PCP Internal Medicine; Visit Provider Internal Medicine
PROC: 0DJ08ZZ Inspection of Upper Intestinal Tract, Via Natural or Artificial Opening Endoscopic (ICD-10-PCS; CPT 43235; principal; 2020-10-10 14:00)
DX: K31.811 Angiodysplasia of stomach and duodenum with bleeding (principal); I13.0 Hypertensive heart and chronic kidney disease with heart failure and stage 1 through stage 4 chronic kidney disease, or unspecified chronic kidney disease; I50.32 Chronic diastolic (congestive) heart failure; D62 Acute posthemorrhagic anemia; J84.9 Interstitial pulmonary disease, unspecified; I27.20 Pulmonary hypertension, unspecified; N18.30 Chronic kidney disease, stage 3 unspecified; K44.9 Diaphragmatic hernia without obstruction or gangrene; K21.9 Gastro-esophageal reflux disease without esophagitis; K25.9 Gastric ulcer, unspecified as acute or chronic, without hemorrhage or perforation; I25.10 Atherosclerotic heart disease of native coronary artery without angina pectoris; I48.91 Unspecified atrial fibrillation; R73.9 Hyperglycemia, unspecified; E78.5 Hyperlipidemia, unspecified; Z79.02 Long term (current) use of antithrombotics/antiplatelets; Z79.82 Long term (current) use of aspirin; Z79.899 Other long term (current) drug therapy; Z87.891 Personal history of nicotine dependence; Z85.038 Personal history of other malignant neoplasm of large intestine; Z85.42 Personal history of malignant neoplasm of other parts of uterus; Z85.51 Personal history of malignant neoplasm of bladder; Z95.0 Presence of cardiac pacemaker; Z95.5 Presence of coronary angioplasty implant and graft; Z90.49 Acquired absence of other specified parts of digestive tract
CPT/HCPCS: 36415; 36430; 71045; 71260; 74177; 80048; 80053; 80076; 82378; 82607; 82652; 82728; 83036; 83540; 83550; 83735; 84100; 85014; 85018; 85025; 85027; 85055; 85610; 85730; 86850; 86870; 86880; 86900; 86901; 86902; 86905; 86922; 86971; 93005; 99285; A9270; G0378; J0171; J1610; J1756; J1815; J2001; J2405; J2704; J7050; J7120; P9016; Q9967

== ENCOUNTER 2020-10-24 13:48 | Outpatient (CLI) | payer MEDICARE, OTHER, SELFPAY ==
[2020-10-24 20:45] LABS: SARS-CoV-2 RNA PCR Negative
== END 2020-10-24 13:49 | disposition home or self-care (01) ==
LOC: ANHCOVIDDT 11-15 13:48
PROVIDERS: PCP Internal Medicine; Visit Provider Internal Medicine Gastroenterology
DX: Z01.812 Encounter for preprocedural laboratory examination (principal); Z20.828 Contact with and (suspected) exposure to other viral communicable diseases
CPT/HCPCS: 87635; C9803; U0003

== ENCOUNTER 2020-12-02 09:09 | Emergency (ER) | payer MEDICARE, OTHER, SELFPAY ==
[2020-12-02] VITALS (30 sets, daily range): BP systolic 134–166; BP diastolic 55–117; PULSE 60–68; RESP 11–19; TEMP 36.9; O2SAT 77–98
--- NOTE | ~2020-12-02 | CT_ITS ---
EXAMINATION: CTA chest PE protocol DATE: 12/02/2020 12:49 INDICATION: Midsternal chest pain. Shortness of breath. TECHNIQUE: Computed tomography angiography (CTA) of the chest was performed with 100 mL Omnipaque-350 intravenous contrast timed to evaluate the pulmonary arteries. Coronal maximum intensity projection 3D-reconstructions were created by the technologist. Automated exposure control and iterative reconst ruction technique were employed. The dose-length product was 255.05 mGy-cm. COMPARISON: Chest CT 10/10/2020 FINDINGS: There are small pleural effusions. There is mild dependent atelectasis bilaterally. There i s peripheral septal thickening in the lungs. There is a pneumatocele in right upper lobe. There is mi ld scarring at the lung apices. Calcified right lung nodules and calcified right hilar and mediastina l lymph nodes are consistent with old granulomatous disease. Cardiomegaly is noted. There is a device in left atrial appendage. No pericardial effusion. There is a 3.6 x 1.8 cm pericardial cyst on the r ight. A right upper extremity peripherally inserted central venous catheter (PICC) is seen with tip a t the superior cavoatrial junction. There is a left chest wall pacer with leads in the right atrium a nd right ventricle. There is no pulmonary embolus. There is ectasia of ascending aorta measuring 4.5 cm. Calcifications in the spleen are consistent with old granulomatous disease. There is mild thoraci c spondylosis. IMPRESSION: 1. No pulmonary embolus. 2. Peripheral septal thickening in the lungs, likely a combination of mild pulmonary edema and chroni c interstitial lung disease. 3. Small pleural effusions. 4. Ectasia of ascending aorta measuring 4.5 cm. Reviewed, dictated and finalized at location A. LER LEAD TEACHER IMPRESSION: 1. No pulmonary embolus. 2. Peripheral septal thickening in the lungs, likely a combination of mild pulm onary edema and chronic interstitial lung disease. 3. Small pleural effusions. 4. Ectasia of ascending aorta measuring 4.5 cm.
--- NOTE | ~2020-12-02 | CT_ITS ---
EXAMINATION: CT lumbar spine wo con DATE: 12/02/2020 14:24 INDICATION: Back pain. Left leg weakness. TECHNIQUE: Computed tomography (CT) of the lumbar spine was performed without intravenous contrast. A utomated exposure control and iterative reconstruction technique were employed. The dose-length produ ct was 1001.45 mGy-cm. COMPARISON: CT lumbar spine 02/11/2018, CT abdomen and pelvis 10/10/2020 FINDINGS: There are small pleural effusions. There is 16 degrees dextroscoliosis of thoracolumbar spi ne. There is 3 mm anterolisthesis of L4 on L5. There is severely decreased disc height at L1-L2, mode rately decreased disc height at L2-L3, and severely decreased disc height from L3-L4 through L5-S1 wi th endplate remodeling. There is chronic 2/5 height loss of L4 vertebral body. The following disc lev els are specifically discussed: L1-L2: The disc is bulging. There is severe right and moderate left facet joint osteoarthritis. There is moderate bilateral neural foraminal stenosis. There is mild central canal stenosis. L2-L3: The disc is bulging. There is severe bilateral facet joint osteoarthritis. There is moderate b ilateral neural foraminal stenosis. There is mild central canal stenosis. L3-L4: The disc is bulging. There is severe bilateral facet joint osteoarthritis. There is moderate b ilateral neural foraminal stenosis. There is moderate central canal stenosis. L4-L5: The disc is bulging. There is severe bilateral facet joint osteoarthritis. There is moderate b ilateral neural foraminal stenosis. There is moderate central canal stenosis. L5-S1: The disc is bulging. There is severe bilateral facet joint osteoarthritis. There is moderate b ilateral neural foraminal stenosis. There is mild central canal stenosis. IMPRESSION: 1. No acute fracture. 2. Severe lumbar spondylosis. 3. Thoracolumbar dextroscoliosis. Reviewed, dictated and finalized at location A. OR OF OPTOMETRY
--- NOTE | ~2020-12-02 | XR_ITS ---
XR chest 2V 12/02/2020 10:30 Indication: Midsternal chest pain. Procedure: AP and lateral views of the chest Comparison: Comparison to multiple prior studies sequentially, with oldest reviewed study dated 10/25. Findings: Cardiomegaly with interstitial edema. Small left pleural effusion. PICC line tip in the SVC . Pacemaker leads are stable. No pneumothorax. Impression: 1: Cardiomegaly with mild interstitial edema. 2: Small left pleural effusion. Reviewed, dictated and finalized at location A. ER AND BOX BUILDER Impression: 1: Cardiomegaly with mild interstitial edema. 2: Small left pleural effusion.
--- NOTE | 2020-12-02 09:21 | ED.CHESTPAIN ---
HPI - Chest Pain General Chief Complaint: Chest Pain Stated Complaint: chest pain, rt leg pain Time Seen by Provider: 12/02/20 09:19 History of Present Illness HPI narrative: 85 yo female w/ h/o atrial fibrillation, htn presents to the ED for chest pain. She says that she has had substernal chest paiin since about 729. This is moderate. Worse with taking a deep breath. Associated with mild shortness of breath. She also reports left lower leg numbness for several weeks. She says that she is already being evaluated for this. No fever, chills, cough, weakness. Related Data Home Medications Medication Instructions Recorded Confirmed furosemide 40 mg tablet 40 mg PO BID 09/21/19 11/16/20 losartan 50 mg tablet 50 mg PO DAILY 09/21/19 11/16/20 atorvastatin 20 mg PO DAILY 12/23/19 11/16/20 amiodarone 200 mg tablet 400 mg PO DAILY tablet 08/23/20 11/16/20 sucralfate 1 g PO ACHS 09/29/20 11/16/20 aspirin [Adult Aspirin EC Low 81 mg PO DAILY 11/23/20 11/23/20 Strength] potassium chloride 40 meq PO BID 11/23/20 11/23/20 Allergies Allergy/AdvReac Type Severity Reaction Status Date / Time No Known Allergies Allergy Verified 11/16/20 11:17 Review of Systems Review of Systems: All systems reviewed & are unremarkable except as noted in HPI and below Constitutional: Constitutional: Denies chills Cardiovascular: Cardiovascular: Reports chest pain Respiratory: Respiratory: Reports dyspnea on exertion Gastrointestinal: Gastrointestinal: Denies abdominal pain, Denies nausea and Denies vomiting Genitourinary: Genitourinary: Denies hematuria and Denies dysuria Neurologic: Reports paresthesias (left lower leg) and Denies weakness [facility] Past Medical History Medical History Abscess of arm, left Abscess of knee, right Adverse reaction to MALA inhibitor drug AVM (arteriovenous malformation) of duodenum, acquired Barretts esophagus Status post radiofrequency ablation. Bartholin cyst Status post excision. 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 Bland. Chronic anemia With history of blood transfusion. Chronic atrial fibrillation, unspecified Chronic kidney disease Stage III. Baseline creatinine appears to fluctuate between 1.0 and 1.20. Closed fracture of fourth lumbar vertebra with routine healing Colon cancer (1999) Status post right hemicolectomy. There was recurrence at the splenic fracture, which was resected in September [address] Duran. Coronary artery disease Cardiac catheterization June 2018 with high-grade stenosis in the proximal mid right coronary artery and mild stenosis of the mid LAD with bare metal stent placement due to history of GI bleeding Diastolic congestive heart failure Echocardiogram in September 2018 showed an ejection fraction of 70-75% with severe left atrial enlargement and moderate right atrial enlargement. Dyspnea on exertion Encounter for surgical aftercare following surgery on the digestive system Facial abscess Fall Frequent headaches GERD (gastroesophageal reflux disease) With history of peptic ulcers. History of atrial flutter Status post ablation of the cavo-tricuspid isthmus per Dr. Jaffe at [facility]. Hypercholesterolemia Hyperlipidemia Hyperlipidemia, unspecified Hypertension Hypertensive heart and chronic kidney disease with heart failure and stage 1 through stage 4 chronic kidney disease, or unspecified chronic kidney disease Hypokalemia Intestinal metaplasia of gastric mucosa Laceration of skin of forehead Mitral and aortic insufficiency Moderate pulmonary arterial systolic hypertension On echocardiogram in September 2018 with an estimated peak RVSP 45-50 mmHg. Occipital headache Paroxysmal atrial fibrillation She is maintained on amiodarone. She had been on metoprolol in the past, but that was stopped due to bradycardia
--- NOTE | 2020-12-02 09:22 | ECG_ITS ---
Measurements Intervals [place] Rate: 65 P: -37 OK: 254 QRS: 104 QRSD: 90 T: 67 QT: 408 QTc: 427 Interpretive Statements ELECTRONIC ATRIAL PACEMAKER RIGHT AXIS DEVIATION DELAYED PRECORDIAL R/S TRANSITION LOW QRS VOLTAGE IN PRECORDIAL LEADS BORDERLINE ST-T WAVE ABNORMALITY- DIFFUSE LEADS BASELINE ARTIFACT- I, II, III, AVR, AVL, AVF, V1-V6 BORDERLINE ECG Electronically Signed On 12-02-2020 10:37:21 WATER SERVICE SUPERVISOR by Jj Obrien D.O.
--- NOTE | 2020-12-02 09:48 | PC.NURSE ---
PT STATES SHE DOES NOT WANT HER BLOOD DRAWN, SHE WANT'S IT PULLED FROM THE PICC LINE. ELECTRICAL ASSEMBLER SHADI AWARE TO PLACED ORDER FOR PLACEMENT XRAY PRIOR TO DRAWING BLOOD.
--- NOTE | 2020-12-02 10:22 | PC.NURSE ---
STILL AWAITING XRAY FOR PICC LINE PLACEMENT.
[2020-12-02 11:06] LABS: Hematocrit 31.9 % (37.0-47.0); Hemoglobin 9.4 g/dL (12.0-15.0); Mean Corpuscular HGB Conc 29.5 g/dl (32-36); Mean Corpuscular Hemoglobin 28.9 pg (26-34); Mean Corpuscular Volume 98.2 fl (80-100); Mean Platelet Volume 9.9 fl (7.4-10.4); Platelet Count Result 173 k/mm3 (150-375); Red Blood Count 3.25 M/mm3 (4.2-5.4); Red Cell Distribution Width 19.3 % (11.5-14.5); White Blood Count 6.2 K/mm3 (4.5-10.0)
[2020-12-02 11:15] LABS: INR 1.1; Prothrombin Time 14.6 Seconds (11.1-14.7)
[2020-12-02 11:16] LABS: Partial Thromboplastin Time 35.9 SECONDS (22.3-36.8)
[2020-12-02 11:21] LABS: Eosinophils Absolute Manual 0.06 K/mm3 (0.02-0.5); Eosinophils Percent Manual 1 % (0-4); Lymphocytes Absolute Manual 0.31 K/mm3 (1.1-4.5); Monocytes Absolute Manual 0.49 K/mm3 (0.1-0.90); Monocytes Percent Manual 8 % (3-9); Neutrophils Percent Manual 86 % (46-73); Total Cells Counted 100
[2020-12-02 11:22] LABS: Hypochromasia 1+ (NORMAL); Ovalocytes 1+ (NORMAL); Platelet Estimate Adequate (Adequate); Tear Drop Cells 2+ (NORMAL)
[2020-12-02 11:23] LABS: Alanine Aminotransferase 7 U/L (4-35); Albumin Level 3.5 g/dL (3.5-5.1); Alkaline Phosphatase 195 U/L (38-126); Anion Gap 5 mmol/L (8-16); Aspartate Amino Transferase 17 U/L (14-36); Bilirubin,Total 0.5 mg/dL (0.2-1.3); Blood Urea Nitrogen 10 mg/dL (7-17); Calcium 7.8 mg/dL (8.4-10.2); Carbon Dioxide 30 mmol/L (22-30); Chloride 105 mmol/L (98-107); Estimated CRCL calculation 34 ml/min; Estimated Glomerular Filt Rate 53; Glucose 148 mg/dL (65-105); Potassium 3.2 mmol/L (3.4-5.0); Sodium 140 mmol/L (137-145)
[2020-12-02 11:35] LABS: Troponin I < 0.012 ng/mL (0.000-0.034)
[2020-12-02 13:13] LABS: Troponin I < 0.012 ng/mL (0.000-0.034)
--- NOTE | 2020-12-02 14:14 | PC.NURSE ---
UPON ATTEMPTING TO D/C PT, PT AND FAMILY COMPLAING OF BACK PAIN AT THIS TIME, PT DOES NOT WANT TO BE D/C WITHOUT SCAN OF BACK. JOSE VICTOR INFORMED AND VERBAL ORDER PLACED FOR CT LUMBAR SPINE WITHOUT CONTRAST.
== END 2020-12-02 14:58 | disposition home or self-care (01) ==
PROVIDERS: Emergency Provider Emergency Medicine; PCP Internal Medicine
DX: R07.2 Precordial pain (principal); I48.0 Paroxysmal atrial fibrillation; I13.0 Hypertensive heart and chronic kidney disease with heart failure and stage 1 through stage 4 chronic kidney disease, or unspecified chronic kidney disease; N18.30 Chronic kidney disease, stage 3 unspecified; I50.30 Unspecified diastolic (congestive) heart failure; Z87.891 Personal history of nicotine dependence; Z79.82 Long term (current) use of aspirin; K55.20 Angiodysplasia of colon without hemorrhage; K22.70 Barrett's esophagus without dysplasia; Z85.51 Personal history of malignant neoplasm of bladder; Z90.49 Acquired absence of other specified parts of digestive tract; Z85.038 Personal history of other malignant neoplasm of large intestine; K21.9 Gastro-esophageal reflux disease without esophagitis; E78.5 Hyperlipidemia, unspecified; I08.0 Rheumatic disorders of both mitral and aortic valves; I27.21 Secondary pulmonary arterial hypertension; Z85.42 Personal history of malignant neoplasm of other parts of uterus; Z98.42 Cataract extraction status, left eye; Z98.41 Cataract extraction status, right eye; Z95.0 Presence of cardiac pacemaker; R94.31 Abnormal electrocardiogram [ECG] [EKG]; I77.819 Aortic ectasia, unspecified site; R91.8 Other nonspecific abnormal finding of lung field
CPT/HCPCS: 36415; 71046; 71275; 72131; 80053; 84484; 85025; 85610; 85730; 86850; 86880; 86900; 86901; 86922; 93005; 99284; Q9967

== ENCOUNTER 2020-12-05 22:38 | Emergency (ER) | payer MEDICARE, OTHER, SELFPAY ==
[2020-12-05 22:35] VITALS: BP 164/93; PULSE 86; RESP 22; TEMP 36.9; O2SAT 96
--- NOTE | 2020-12-05 22:52 | ED.BACK ---
HPI - Back Pain/Injury General Chief Complaint: Back Pain/Injury Stated Complaint: back pain Source: patient Mode of arrival: ambulatory Limitations: no limitations History of Present Illness HPI Narrative: An 85-year-old female comes into the emergency department today with complaints of pain. Patient states that she has pain in her right shoulder and upper back. She also notes that she has pain in her left lower back and buttock and leg. Patient notes that she was here for this the other day was evaluated and discharged. She states that she does not feel that she was treated appropriately at that time. Patient still having a great deal of pain. Related Data Home Medications Medication Instructions Recorded Confirmed furosemide 40 mg tablet 40 mg PO BID 09/21/19 11/16/20 losartan 50 mg tablet 50 mg PO DAILY 09/21/19 11/16/20 atorvastatin 20 mg PO DAILY 12/23/19 11/16/20 amiodarone 200 mg tablet 400 mg PO DAILY tablet 08/23/20 11/16/20 sucralfate 1 g PO ACHS 09/29/20 11/16/20 potassium chloride 40 meq PO BID 11/23/20 11/23/20 aspirin 325 mg PO DAILY 12/05/20 Allergies Allergy/AdvReac Type Severity Reaction Status Date / Time No Known Allergies Allergy Verified 11/16/20 11:17 Review of Systems Review of Systems: Narrative: CONSTITUTIONAL: Denies fever, chills, or sweats. EYES: Denies visual changes, redness, or discharge. ENT: Denies rhinorrhea, congestion, sore throat, or otalgia. CARDIOVASCULAR: Denies chest pain, palpitations, or edema. RESPIRATORY: Denies cough or dyspnea. GASTROINTESTINAL: Denies abdominal pain, nausea, vomiting, or diarrhea. GENITOURINARY: Denies dysuria or hematuria. SKIN: Denies rash or itching. MUSCULOSKELETAL: Denies bjoint pain, or myalgia. Endorses left-sided lower back pain and right upper back pain NEUROLOGIC: Denies headache, numbness, dizziness, or weakness. PSYCHIATRIC: Denies anxiety or depression. [facility] Past Medical History Medical History Abscess of arm, left Abscess of knee, right Adverse reaction to MALA inhibitor drug AVM (arteriovenous malformation) of duodenum, acquired Barretts esophagus Status post radiofrequency ablation. Bartholin cyst Status post excision. 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 Bland. Chronic anemia With history of blood transfusion. Chronic atrial fibrillation, unspecified Chronic kidney disease Stage III. Baseline creatinine appears to fluctuate between 1.0 and 1.20. Closed fracture of fourth lumbar vertebra with routine healing Colon cancer (1999) Status post right hemicolectomy. There was recurrence at the splenic fracture, which was resected in September [address] Duran. Coronary artery disease Cardiac catheterization June 2018 with high-grade stenosis in the proximal mid right coronary artery and mild stenosis of the mid LAD with bare metal stent placement due to history of GI bleeding Diastolic congestive heart failure Echocardiogram in September 2018 showed an ejection fraction of 70-75% with severe left atrial enlargement and moderate right atrial enlargement. Dyspnea on exertion Encounter for surgical aftercare following surgery on the digestive system Facial abscess Fall Frequent headaches GERD (gastroesophageal reflux disease) With history of peptic ulcers. History of atrial flutter Status post ablation of the cavo-tricuspid isthmus per Dr. Jaffe at [facility]. Hypercholesterolemia Hyperlipidemia Hyperlipidemia, unspecified Hypertension Hypertensive heart and chronic kidney disease with heart failure and stage 1 through stage 4 chronic kidney disease, or unspecified chronic kidney disease Hypokalemia Intestinal metaplasia of gastric mucosa Laceration of skin of forehead Mitral and aortic insufficiency Moderate pulmonary arterial systolic hypertension On echocardiogram in
[2020-12-05] MEDS: MORPHINE SULFATE (*CRX) 4 MG/ML INJ IV PUSH (23:10)
[2020-12-05] MEDS: KETOROLAC 15 MG/ML VIAL (*BKC) IV PUSH (23:15)
[2020-12-06 00:05] VITALS: BP 143/64; PULSE 61; RESP 18; TEMP 36.8; O2SAT 93
== END 2020-12-06 00:57 | disposition home or self-care (01) ==
PROVIDERS: Emergency Provider Emergency Medicine; PCP Internal Medicine
DX: M48.05 Spinal stenosis, thoracolumbar region (principal); S39.012A Strain of muscle, fascia and tendon of lower back, initial encounter; I48.0 Paroxysmal atrial fibrillation; I13.0 Hypertensive heart and chronic kidney disease with heart failure and stage 1 through stage 4 chronic kidney disease, or unspecified chronic kidney disease; N18.30 Chronic kidney disease, stage 3 unspecified; I50.30 Unspecified diastolic (congestive) heart failure; K55.20 Angiodysplasia of colon without hemorrhage; K22.70 Barrett's esophagus without dysplasia; K21.9 Gastro-esophageal reflux disease without esophagitis; E78.5 Hyperlipidemia, unspecified; I08.0 Rheumatic disorders of both mitral and aortic valves; I27.21 Secondary pulmonary arterial hypertension; Z85.42 Personal history of malignant neoplasm of other parts of uterus; Z98.42 Cataract extraction status, left eye; Z95.0 Presence of cardiac pacemaker; Z79.82 Long term (current) use of aspirin; Z87.891 Personal history of nicotine dependence; Z85.51 Personal history of malignant neoplasm of bladder; Z90.49 Acquired absence of other specified parts of digestive tract; Z87.11 Personal history of peptic ulcer disease; X58.XXXA Exposure to other specified factors, initial encounter
CPT/HCPCS: 96374; 96375; 99284; J1100; J1885; J2270

== ENCOUNTER 2020-12-11 13:01 | Emergency (ER) | payer MEDICARE, OTHER, SELFPAY ==
--- NOTE | ~2020-12-11 | CT_ITS ---
EXAMINATION: CT lumbar spine wo con DATE: 12/11/2020 14:19 INDICATION: Low back pain radiating down the left leg. TECHNIQUE: Computed tomography (CT) of the lumbar spine was performed without intravenous contrast. A utomated exposure control and iterative reconstruction technique were employed. The dose-length produ ct was 675.51 mGy-cm. COMPARISON: None FINDINGS: Mild S-shaped thoracolumbar scoliosis with thoracolumbar dextrocurvature and lower lumbar l evocurvature. 2 mm anterolisthesis L4 on L5. Chronic mild left-sided superior endplate compression fr acture at L4. Remaining vertebral body heights are normal. No acute fracture. Severe disc height loss at L4-L5, on the left at L1-L2 and on the right at L3-L4 and L4-L5. Moderate disc height loss at L2- L3. No interval change in multilevel disc bulges and severe bilateral lumbar facet osteoarthritis wit h secondary multilevel mild to moderate central canal and moderate bilateral neural foraminal stenosi s. See prior report for level by level description. Small bilateral pleural effusions. Splenic calcific lesion consistent with old granulomatous disease. A few sigmoid diverticula without adjacent inflammatory change to suggest diverticulitis. Atheroscle rotic at location along the visualized abdominal aorta and bilateral common iliac arteries. 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 IMPRESSION: 1. Mild S-shaped thoracolumbar scoliosis with severe lumbar spondylosis. No acute osseous abnormality . 2. Small bilateral pleural effusions. 3. 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 Reviewed, dictated and finalized at location A. PRICKER IMPRESSION: 1. Mild S-shaped thoracolumbar scoliosis with severe lumbar spondylosis. No acu te osseous abnormality. 2. Small bilateral pleural effusions. 3. 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
--- NOTE | ~2020-12-11 | XR_ITS ---
EXAMINATION: XR chest 1V portable DATE: 12/11/2020 14:14 INDICATION: Assess PICC line positioning TECHNIQUE: frontal view of the chest was obtained. COMPARISON: Chest radiograph dated 12/02/2020 FINDINGS: Right upper extremity peripherally inserted central venous catheter (PICC) tip at the superior cavoa trial junction. There are patchy bilateral perihilar predominant airspace opacities. Additional bandl cole discoid atelectasis in the left lower lung zone. Superimposed hazy opacities in the bilateral low er lung zones consistent with small bilateral posteriorly layering pleural effusions as seen on the l umbar spine CT. Calcified nodule in the right lower lung zone and calcified mediastinal lymph nodes c onsistent with old granulomatous disease. No pneumothorax. Cardiomegaly. Dual lead pacemaker seen wit h leads projecting over the expected locations of the right atrium and right ventricle. IMPRESSION: 1. Right PICC line tip at the superior cavoatrial junction. 2. Bilateral perihilar predominant airspace opacities likely congestive heart failure related mild pu lmonary edema versus less likely pneumonia. 3. Small bilateral pleural effusions. 4. Cardiomegaly. Reviewed, dictated and finalized at location A. RER MACHINE IMPRESSION: 1. Right PICC line tip at the superior cavoatrial junction. 2. Bilateral perihilar predominant airspace opacities likely congestive heart f ailure related mild pulmonary edema versus less likely pneumonia. 3. Small bilateral pleural effusions. 4. Cardiomegaly.
[2020-12-11 13:07] VITALS: BP 170/78; PULSE 73; RESP 18; TEMP 35.9; O2SAT 94
[2020-12-11 13:34] VITALS: BP 184/92; PULSE 72; RESP 20; O2SAT 92
[2020-12-11] MEDS: traMADol HCL (*CRX) 50 MG TABLET PO (14:29)
--- NOTE | 2020-12-11 14:29 | PC.NURSE ---
Ok to use Picc line, verbal order Teresita BARRIOS
[2020-12-11 14:30] LABS: Basophils Percent Auto 0.1 % (0.2-1.2); Eosinophils Absolute Auto 0.1 K/mm3 (0-0.3); Eosinophils Percent Auto 1.1 % (0-4.4); Hematocrit 37.7 % (37.0-47.0); Lymphocytes Absolute Auto 0.31 K/mm3 (0.9-3.2); Mean Corpuscular HGB Conc 29.2 g/dl (32-36); Mean Corpuscular Hemoglobin 28.7 pg (26-34); Mean Corpuscular Volume 98.4 fl (80-100); Mean Platelet Volume 9.8 fl (7.4-10.4); Monocytes Absolute Auto 0.7 K/mm3 (0.1-0.6); Monocytes Percent Auto 6.3 % (2.6-8.5); Neutrophils Absolute Auto 9.2 K/mm3 (1.3-6.7); Neutrophils Percent Auto 88.5 % (45.5-73.1); Platelet Count Result 238 k/mm3 (150-375); Red Blood Count 3.83 M/mm3 (4.2-5.4); Red Cell Distribution Width 18.3 % (11.5-14.5); White Blood Count 10.4 K/mm3 (4.5-10.0)
--- NOTE | 2020-12-11 14:31 | ED.LOWEXIN ---
HPI - Extremity Injury (Lower) General Chief Complaint: Extremity Injury, Lower Stated Complaint: sob Time Seen by Provider: 12/11/20 13:21 Source: patient Mode of arrival: ambulatory Limitations: no limitations History of Present Illness HPI Narrative: This is a 85 year old female that presents to the ER for left sided low back pain x 1 week. Reports no known injury or trauma. Reports pain radiates down the left leg. She has been taking medications prescribed from her previous visit to the ED for this with little relief. Pain is worse with movement and relieved with rest. Denies decreased ROM or numbness. Related Data Home Medications Medication Instructions Recorded Confirmed furosemide 40 mg tablet 40 mg PO BID 09/21/19 11/16/20 losartan 50 mg tablet 50 mg PO DAILY 09/21/19 11/16/20 atorvastatin 20 mg PO DAILY 12/23/19 11/16/20 amiodarone 200 mg tablet 400 mg PO DAILY tablet 08/23/20 11/16/20 sucralfate 1 g PO ACHS 09/29/20 11/16/20 potassium chloride 40 meq PO BID 11/23/20 11/23/20 aspirin 325 mg PO DAILY 12/05/20 Allergies Allergy/AdvReac Type Severity Reaction Status Date / Time No Known Allergies Allergy Verified 12/11/20 13:16 Review of Systems Review of Systems: Narrative: CONSTITUTIONAL: Denies fever CARDIOVASCULAR: Denies chest pain RESPIRATORY: Denies dyspnea. SKIN: Denies rash MUSCULOSKELETAL: Reports back pain, joint pain, and myalgia. NEUROLOGIC: Denies numbness, or weakness. All systems reviewed & are unremarkable except as noted in HPI and below PMFSH Past Medical History Medical History Abscess of arm, left Abscess of knee, right Adverse reaction to MALA inhibitor drug AVM (arteriovenous malformation) of duodenum, acquired Barretts esophagus Status post radiofrequency ablation. Bartholin cyst Status post excision. 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 Bland. Chronic anemia With history of blood transfusion. Chronic atrial fibrillation, unspecified Chronic kidney disease Stage III. Baseline creatinine appears to fluctuate between 1.0 and 1.20. Closed fracture of fourth lumbar vertebra with routine healing Colon cancer (1999) Status post right hemicolectomy. There was recurrence at the splenic fracture, which was resected in September [address] Duran. Coronary artery disease Cardiac catheterization June 2018 with high-grade stenosis in the proximal mid right coronary artery and mild stenosis of the mid LAD with bare metal stent placement due to history of GI bleeding Diastolic congestive heart failure Echocardiogram in September 2018 showed an ejection fraction of 70-75% with severe left atrial enlargement and moderate right atrial enlargement. Dyspnea on exertion Encounter for surgical aftercare following surgery on the digestive system Facial abscess Fall Frequent headaches GERD (gastroesophageal reflux disease) With history of peptic ulcers. History of atrial flutter Status post ablation of the cavo-tricuspid isthmus per Dr. Jaffe at [facility]. Hypercholesterolemia Hyperlipidemia Hyperlipidemia, unspecified Hypertension Hypertensive heart and chronic kidney disease with heart failure and stage 1 through stage 4 chronic kidney disease, or unspecified chronic kidney disease Hypokalemia Intestinal metaplasia of gastric mucosa Laceration of skin of forehead Mitral and aortic insufficiency Moderate pulmonary arterial systolic hypertension On echocardiogram in September 2018 with an estimated peak RVSP 45-50 mmHg. Occipital headache Paroxysmal atrial fibrillation She is maintained on amiodarone. She had been on metoprolol in the past, but that was stopped due to bradycardia. Given ongoing problems with chronic GI loss, a watchman device was inserted in June 2020 at [facility]. Her automotive manager is Dr. Jake Bravo. Paroxysmal at
[2020-12-11 14:44] LABS: Hypochromasia 1+ (NORMAL); Platelet Estimate Adequate (Adequate); Tear Drop Cells 1+ (NORMAL)
[2020-12-11 14:45] LABS: Anion Gap 5 mmol/L (8-16); Blood Urea Nitrogen 14 mg/dL (7-17); CRP 5.1 mg/dL (<1.0); Calcium 7.8 mg/dL (8.4-10.2); Carbon Dioxide 26 mmol/L (22-30); Chloride 110 mmol/L (98-107); Estimated CRCL calculation 33 ml/min; Estimated Glomerular Filt Rate 60; Glucose 150 mg/dL (65-105); Potassium 3.9 mmol/L (3.4-5.0); Sodium 141 mmol/L (137-145)
[2020-12-11 14:59] VITALS: TEMP 35.9
[2020-12-11 15:13] LABS: NT Pro B Type Natriuretic Pept 5590 PG/ML (5-100)
[2020-12-11] MEDS: FUROSEMIDE INJ 40 MG/4 ML VIAL IV PUSH (16:18)
[2020-12-11] MEDS: MORPHINE SULFATE (*CRX) 4 MG/ML INJ IV PUSH (17:42)
[2020-12-11] MEDS: ONDANSETRON INJ 4 MG/2 ML VIAL IV PUSH (17:42)
== END 2020-12-11 17:57 | disposition home or self-care (01) ==
PROVIDERS: Physician Assistant; Emergency Provider Emergency Medicine; PCP Internal Medicine
DX: M47.816 Spondylosis without myelopathy or radiculopathy, lumbar region (principal); I50.30 Unspecified diastolic (congestive) heart failure; I13.0 Hypertensive heart and chronic kidney disease with heart failure and stage 1 through stage 4 chronic kidney disease, or unspecified chronic kidney disease; N18.30 Chronic kidney disease, stage 3 unspecified; I25.10 Atherosclerotic heart disease of native coronary artery without angina pectoris; I48.20 Chronic atrial fibrillation, unspecified; I08.3 Combined rheumatic disorders of mitral, aortic and tricuspid valves; E78.5 Hyperlipidemia, unspecified; Z87.11 Personal history of peptic ulcer disease; Z85.42 Personal history of malignant neoplasm of other parts of uterus; Z85.51 Personal history of malignant neoplasm of bladder; Z85.038 Personal history of other malignant neoplasm of large intestine; Z87.891 Personal history of nicotine dependence; Z95.0 Presence of cardiac pacemaker; Z98.42 Cataract extraction status, left eye; Z98.41 Cataract extraction status, right eye; I51.7 Cardiomegaly
CPT/HCPCS: 36415; 71045; 72131; 80048; 83880; 85025; 86140; 96365; 96375; 99284; A9270; J0131; J1940; J2270; J2405

== ENCOUNTER 2020-12-14 21:41 | Inpatient (IN) | payer MEDICARE, OTHER, SELFPAY ==
[2020-12-14] VITALS (13 sets, daily range): BP systolic 129–182; BP diastolic 62–87; PULSE 61–83; RESP 19–25; TEMP 36.4; O2SAT 72–100
--- NOTE | ~2020-12-14 | XR_ITS ---
EXAMINATION: XR chest port-a-cath/central EXAM DATE: 12/15/2020 09:07 INDICATION: Respiratory failure. Central line placement. TECHNIQUE: Portable AP frontal chest x-ray was obtained. Comparison is made to prior examination from 12/14/2020. FINDINGS: Endotracheal tube tip is 2-3 centimeters above the mariangel. There is a nasogastric tube see n with tip collimated off the study, but below the left hemidiaphragm. There is a left IJ line in po sition, tip extending down the SVC. There is a right-sided PICC line with tip projecting over the cav oatrial junction. There is extensive bilateral pneumonia and/or edema. Please clinically correlate. There is a dual joey d pacemaker/AICD seen with leads projecting over the expected locations of the right atrial appendage and right ventricle. There are no sizable pleural effusions. There is no pneumothorax suspected . The cardiomediastinal silhouette is prominent but magnified on this AP technique. There are bon y degenerative changes. There is no significant interval change. IMPRESSION: 1. No evidence postprocedure pneumothorax. 2. Extensive bilateral pneumonia and/or edema. Reviewed, dictated and finalized at location A. ERCIAL REPRESENTATIVE
--- NOTE | ~2020-12-14 | XR_ITS ---
EXAMINATION: XR chest 1V portable INDICATION: Respiratory failure TECHNIQUE: Portable AP chest at 0528 hours COMPARISON: 12/17/2020 FINDINGS: The endotracheal tube ends approximately 2.1 cm above the mariangel. The nasogastric tube is f ollowed as far as the stomach. Its tip is beyond the inferior margin of the radiograph. A right upper extremity PICC ends with its tip at the superior cavoatrial junction. A left internal jugular centra l venous catheter ends with its tip at the superior cavoatrial junction. Patchy bilateral airspace op acities persist with slight improvement in the right upper lung zone and slight worsening in the righ t lower lung zone. There is stable cardiomegaly. No pleural effusion or pneumothorax is identified. A dual-lead cardiac pacemaker of the left chest wall ends with leads in expected locations. IMPRESSION: 1. Diffuse lung disease with slight worsening in the right lower lung zone and improvement in the rig ht upper lung zone, consistent with pneumonia and/or pulmonary edema and/or acute respiratory distres s syndrome (ARDS). Reviewed, dictated and finalized at location A. POT OPERATOR IMPRESSION: 1. Diffuse lung disease with slight worsening in the right lower lung zone and improvement in the right upper lung zone, consistent with pneumonia and/or pulm onary edema and/or acute respiratory distress syndrome (ARDS).
--- NOTE | ~2020-12-14 | XR_ITS ---
EXAMINATION: XR chest 1V portable INDICATION: Shortness of breath, hypoxia TECHNIQUE: Portable AP chest at 2229 hours COMPARISON: 12/11/2020 FINDINGS: Diffuse interstitial and airspace opacities are present with a central predominance. A righ t upper extremity PICC ends with its tip in the distal vena cava. Cardiomegaly is noted. There is no pneumothorax. Small pleural effusions are present, left greater than right.. A dual-lead cardiac pace maker of the left chest wall ends with leads in expected locations. IMPRESSION: 1. Diffuse interstitial and airspace opacities, consistent with pulmonary edema and/or pneumonia. 2. Cardiomegaly. 3. Small pleural effusions, left greater than right. Reviewed, dictated and finalized at location A. MILL OPERATOR
--- NOTE | ~2020-12-14 | XR_ITS ---
EXAMINATION: XR chest 1V portable INDICATION: Respiratory failure TECHNIQUE: Portable AP chest at 0532 hours COMPARISON: 12/16/2020 FINDINGS: The endotracheal tube ends approximately 2.1 cm above the mariangel. The nasogastric tube is f ollowed as far as the stomach. Its tip is beyond the inferior margin of the radiograph. A right upper extremity PICC ends with its tip in the distal superior vena cava. A left internal jugular central v enous catheter also ends with its tip in the distal superior vena cava. Patchy bilateral opacities pe rsist with slight improvement in the left upper lung zone. There is no pleural effusion or pneumothor ax. Cardiomegaly is noted. IMPRESSION: 1. Diffuse lung disease with interval improvement in the left upper lung zone, consistent with pneumo bobbi and/or pulmonary edema and/or acute respiratory distress syndrome (ARDS). Reviewed, dictated and finalized at location A. ARD/STEWARDESS BANQUET IMPRESSION: 1. Diffuse lung disease with interval improvement in the left upper lung zone, consistent with pneumonia and/or pulmonary edema and/or acute respiratory distr ess syndrome (ARDS).
--- NOTE | ~2020-12-14 | XR_ITS ---
EXAMINATION: XR chest ET placement EXAM DATE: 12/15/2020 07:24 INDICATION: After intubation to confirm ET placement. TECHNIQUE: Portable AP frontal chest x-ray was obtained. Comparison is made to prior examination from 12/14/2020. FINDINGS: Endotracheal tube tip is 2-3 centimeters above the mariangel. There is a nasogastric tube see n with tip collimated off the study, but below the left hemidiaphragm. There is extensive bilateral pneumonia and/or edema. Please clinically correlate. There is a dual joey d pacemaker/AICD seen with leads projecting over the expected locations of the right atrial appendage and right ventricle. There are no sizable pleural effusions. There is no pneumothorax suspected . The cardiomediastinal silhouette is prominent but magnified on this AP technique. There are bon y degenerative changes. Airspace disease appears unchanged compared to yesterday. IMPRESSION: 1. Tubes in position. 2. Extensive bilateral pneumonia and/or edema. Reviewed, dictated and finalized at location A. R WAXER
--- NOTE | ~2020-12-14 | XR_ITS ---
EXAMINATION: XR abdomen NG/feed tube insert EXAM DATE: 12/15/2020 07:24 INDICATION: Orogastric tube placement. TECHNIQUE: Frontal projection(s) of the abdomen for interpretation. There is no prior study for brien mi. FINDINGS: Feeding tube tip and side-port project over left upper quadrant, adequate. Nonspecific uppe r abdominal bowel gas pattern. Extensive bilateral airspace disease. Mild lumbar dextroscoliosis. IMPRESSION: 1. Feeding tube in position. Reviewed, dictated and finalized at location A. R LABORATORY TECHNICIAN
--- NOTE | ~2020-12-14 | XR_ITS ---
EXAMINATION: XR chest 1V portable EXAM DATE: 12/20/2020 06:22 INDICATION: Respiratory failure. TECHNIQUE: Portable AP frontal chest x-ray was obtained. Comparison is made to prior examination from 12/19. FINDINGS: Endotracheal tube tip is 2 centimeters above the mariangel. There is a nasogastric tube seen with tip collimated off the study, but below the left hemidiaphragm. There is a right-sided PICC line , tip overlying cavoatrial junction. There is a left IJ venous line. Extensive bilateral ill-defined infection and/or edema. There are no sizable pleural effusions. Th ere is no pneumothorax suspected. There is a dual lead pacemaker/AICD seen with leads projecting ove r the expected locations of the right atrial appendage and right ventricle. The cardiac silhouette is enlarged. There are mild bony degenerative changes. There is no significant interval change compared to prior exam. IMPRESSION: 1. Line and tube(s) in position. 2. Extensive bilateral edema and/or infection. Reviewed, dictated and finalized at location A. NCE ASSEMBLER
--- NOTE | ~2020-12-14 | XR_ITS ---
EXAMINATION: XR chest 1V portable EXAM DATE: 12/16/2020 06:00 INDICATION: Respiratory failure. TECHNIQUE: Portable AP frontal chest x-ray was obtained. Comparison is made to prior examination from 12/15, 12/14. FINDINGS: Endotracheal tube tip is 2-3 centimeters above the mariangel. There is a nasogastric tube see n with tip collimated off the study, but below the left hemidiaphragm. There is a left IJ line in po sition, tip extending down the SVC. There is a right-sided PICC line with tip projecting over the cav oatrial junction. There is extensive bilateral pneumonia and/or edema. Please clinically correlate. There is a dual joey d pacemaker/AICD seen with leads projecting over the expected locations of the right atrial appendage and right ventricle. There are no sizable pleural effusions. There is no pneumothorax suspected . The cardiomediastinal silhouette is prominent but magnified on this AP technique. There are bon y degenerative changes. Compared to last couple of days, there may be slight interval improvement in the density of the diffu se bilateral airspace disease. IMPRESSION: 1. Lines and tubes in position. 2. Extensive bilateral pneumonia and/or edema, suspect mild improvement. Reviewed, dictated and finalized at location A. PHYSICIAN
--- NOTE | ~2020-12-14 | XR_ITS ---
EXAMINATION: XR chest 1V portable EXAM DATE: 12/19/2020 06:04 INDICATION: Respiratory failure. TECHNIQUE: Portable AP frontal chest x-ray was obtained. Comparison is made to prior examination from 12/18. FINDINGS: Endotracheal tube tip is 2 centimeters above the mariangel. There is a nasogastric tube seen with tip collimated off the study, but below the left hemidiaphragm. There is a right-sided PICC line , tip overlying cavoatrial junction. There is a left IJ venous line. Extensive bilateral ill-defined infection and/or edema. There are no sizable pleural effusions. Th ere is no pneumothorax suspected. There is a dual lead pacemaker/AICD seen with leads projecting ove r the expected locations of the right atrial appendage and right ventricle. The cardiac silhouette is enlarged. There are no osseous abnormalities identified. There is no significant interval change compared to prior exam. IMPRESSION: 1. Line and tube(s) in position. 2. Extensive bilateral edema and/or infection. Reviewed, dictated and finalized at location A. NATAL COORDINATOR
--- NOTE | 2020-12-14 21:51 | PC.NURSE ---
Multiple attempts per LYNDA Muro, to initiate IV unsuccessful. Pt has PICC line to right upper arm that she uses for blood transfusions due to hx of gi bleeding. Preparing to check for placement of this.
--- NOTE | 2020-12-14 21:58 | ECG_ITS ---
Measurements Intervals Whitakers Rate: 70 P: 34 PA: 236 QRS: 68 QRSD: 99 T: 133 QT: 415 QTc: 449 Interpretive Statements SINUS RHYTHM WITH FIRST DEGREE AV BLOCK DELAYED PRECORDIAL R/S TRANSITION NONSPECIFIC ST & T-WAVE ABNORMALITY- DIFFUSE LEADS BASELINE ARTIFACT- I, III, AVL ABNORMAL ECG Electronically Signed On 12-15-2020 7:15:50 SALESMAN/OWNER by Jj Obrien D.O.
[2020-12-14 21:59] LABS: Alveolar/Arterial O2 Gradient 585.9 mmHg; Base Excess ABG -4.9 mEq/l (+/-2.0); Carboxyhemoglobin 1.7 % THb (0-2.0); Fractional Inspired Oxygen 100 %; HCO3 ABG 20.6 mEq/l (22.0-26.0); Methemoglobin ABG 0.1 %THb (0-1.5); Oxygen Content ABG 17.3 %vol (16.0-22.0); Oxygen Saturation ABG 96.1 % (95.0-100.0); Oxyhemoglobin 94.3 % THb (90.0-100.0); PCO2 ABG 39.7 mmHg (35.0-45.0); PO2 ABG 87.4 mmHg (80.0-100.0); PO2 FiO2 Ratio Arterial Blood 0.87 %; Reduced Hemoglobin 3.9 %THb (0-5.0); pH ABG 7.332 (7.350-7.450)
[2020-12-14 22:00] LABS: Device NON-INVASIVE VENT; Modified Allen's Test Pass; Site Drawn LEFT RADIAL
[2020-12-14 22:01] LABS: Non-Invasive Expiratory Pressure 8 CMH2O; Non-Invasive Inspiratory Pressure 14 CMH2O; Non-Invasive Vent Rate 12 /MIN
--- NOTE | 2020-12-14 22:13 | ED.SOB ---
HPI - SOB/Dyspnea General Chief Complaint: Shortness of Breath/Dyspnea Stated Complaint: sob and chest tightness Time Seen by Provider: 12/14/20 21:44 Source: patient and EMS Mode of arrival: EMS Limitations: clinical condition History of Present Illness HPI Narrative: Patient 85-year-old woman comes into the emergency department with complaints of shortness of breath. She was placed on CPAP via EMS and started to improve. Reportedly she was in the 70s on room air. Patient does endorse a history of congestive heart failure but denies any lung issues. She denies any chest, or abdominal pain. She also denies any body aches, headaches fevers or chills. Further history truncated secondary to emergent presentation. Related Data Home Medications Medication Instructions Recorded Confirmed furosemide 40 mg tablet 40 mg PO BID 09/21/19 11/16/20 losartan 50 mg tablet 50 mg PO DAILY 09/21/19 11/16/20 atorvastatin 20 mg PO DAILY 12/23/19 11/16/20 amiodarone 200 mg tablet 400 mg PO DAILY tablet 08/23/20 11/16/20 sucralfate 1 g PO ACHS 09/29/20 11/16/20 potassium chloride 40 meq PO BID 11/23/20 11/23/20 aspirin 325 mg PO DAILY 12/05/20 Allergies Allergy/AdvReac Type Severity Reaction Status Date / Time No Known Allergies Allergy Verified 12/11/20 13:16 Review of Systems Review of Systems: ROS unobtainable: Yes unobtainable due to medical condition PMFSH Past Medical History Medical History Abscess of arm, left Abscess of knee, right Adverse reaction to MALA inhibitor drug AVM (arteriovenous malformation) of duodenum, acquired Barretts esophagus Status post radiofrequency ablation. Bartholin cyst Status post excision. 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 Bland. Chronic anemia With history of blood transfusion. Chronic atrial fibrillation, unspecified Chronic kidney disease Stage III. Baseline creatinine appears to fluctuate between 1.0 and 1.20. Closed fracture of fourth lumbar vertebra with routine healing Colon cancer (1999) Status post right hemicolectomy. There was recurrence at the splenic fracture, which was resected in September [address] Duran. Coronary artery disease Cardiac catheterization June 2018 with high-grade stenosis in the proximal mid right coronary artery and mild stenosis of the mid LAD with bare metal stent placement due to history of GI bleeding Diastolic congestive heart failure Echocardiogram in September 2018 showed an ejection fraction of 70-75% with severe left atrial enlargement and moderate right atrial enlargement. Dyspnea on exertion Encounter for surgical aftercare following surgery on the digestive system Facial abscess Fall Frequent headaches GERD (gastroesophageal reflux disease) With history of peptic ulcers. History of atrial flutter Status post ablation of the cavo-tricuspid isthmus per Dr. Jaffe at [facility]. Hypercholesterolemia Hyperlipidemia Hyperlipidemia, unspecified Hypertension Hypertensive heart and chronic kidney disease with heart failure and stage 1 through stage 4 chronic kidney disease, or unspecified chronic kidney disease Hypokalemia Intestinal metaplasia of gastric mucosa Laceration of skin of forehead Mitral and aortic insufficiency Moderate pulmonary arterial systolic hypertension On echocardiogram in September 2018 with an estimated peak RVSP 45-50 mmHg. Occipital headache Paroxysmal atrial fibrillation She is maintained on amiodarone. She had been on metoprolol in the past, but that was stopped due to bradycardia. Given ongoing problems with chronic GI loss, a watchman device was inserted in June 2020 at [place]. Her retail property manager is Dr. Jake Bravo. Paroxysmal atrial fibrillation Peptic ulcer disease With history of GI bleed. Shortness of breath Spinal stenosis Swelling Syncope and colla
[2020-12-14 22:25] LABS: Basophils Percent Auto 0.2 % (0.2-1.2); Hematocrit 39.8 % (37.0-47.0); Hemoglobin 11.6 g/dL (12.0-15.0); Immature Granulocyte Absolute 0.05 K/mm3 (0.00-0.031); Immature Granulocyte Percent A 0.5 % (0-0.5); Lymphocytes Percent Auto 1.9 % (18.3-44.2); Mean Corpuscular HGB Conc 29.1 g/dl (32-36); Mean Corpuscular Hemoglobin 28.2 pg (26-34); Mean Corpuscular Volume 96.8 fl (80-100); Mean Platelet Volume 10.2 fl (7.4-10.4); Monocytes Absolute Auto 0.3 K/mm3 (0.1-0.6); Monocytes Percent Auto 3.1 % (2.6-8.5); Neutrophils Absolute Auto 9.9 K/mm3 (1.3-6.7); Neutrophils Percent Auto 94.3 % (45.5-73.1); Nucleated Red Blood Cells Perc 0.2 % (0.0-0.2); Platelet Count Result 291 k/mm3 (150-375); Red Blood Count 4.11 M/mm3 (4.2-5.4); Red Cell Distribution Width 17.7 % (11.5-14.5); White Blood Count 10.5 K/mm3 (4.5-10.0)
[2020-12-14 22:36] LABS: Hypochromasia 1+ (NORMAL); INR 1.4; Ovalocytes 1+ (NORMAL); Platelet Estimate Adequate (Adequate); Prothrombin Time 17.5 Seconds (11.1-14.7)
[2020-12-14 22:38] LABS: Alanine Aminotransferase 16 U/L (4-35); Albumin Level 3.4 g/dL (3.5-5.1); Alkaline Phosphatase 223 U/L (38-126); Anion Gap 12 mmol/L (8-16); Aspartate Amino Transferase 28 U/L (14-36); Blood Urea Nitrogen 20 mg/dL (7-17); Calcium 7.4 mg/dL (8.4-10.2); Carbon Dioxide 24 mmol/L (22-30); Chloride 101 mmol/L (98-107); Estimated Glomerular Filt Rate 47; Glucose 389 mg/dL (65-105); Magnesium 1.8 mg/dL (1.6-2.3); Potassium 3.6 mmol/L (3.4-5.0); Sodium 137 mmol/L (137-145)
--- NOTE | 2020-12-14 22:44 | PC.NURSE ---
Per Dr. Adi zapata to use patient's picc line.
[2020-12-14] MEDS: FUROSEMIDE INJ 40 MG/4 ML VIAL 80 MG IV PUSH (22:47)
[2020-12-14] MEDS: NITROGLYCERIN OINTMENT 1 INCH DOSE TRANSDERM (22:47)
--- NOTE | 2020-12-14 22:48 | PC.NURSE ---
Picc line placed prior to arrival, ok to use per Dr Johsi
[2020-12-14 22:49] LABS: NT Pro B Type Natriuretic Pept 17700 PG/ML (5-100); Troponin I < 0.012 ng/mL (0.000-0.034)
--- NOTE | 2020-12-14 23:30 | PC.NURSE ---
Floor calls, states that room 205 is clean now. Attempt to call report, state have not received SBAR. SBAR refaxed.
--- NOTE | 2020-12-14 23:45 | PC.NURSE ---
Pt ambulatory with bipap mask on to bedside commode to void. Pt states issues with back problems and had gone to pain management today and is needing an MRI of lumbar spine.
[2020-12-15] VITALS (42 sets, daily range): BP systolic 55–148; BP diastolic 34–115; PULSE 65–170; RESP 18–26; TEMP 36.1–37.1; O2SAT 90–98; BMI 27.8
[2020-12-15 00:12] LABS: Add Urine Microscopic? YES; Appearance Urine Clear (Clear); Bacteria Urine Trace /hpf; Bilirubin Urine Negative (Negative); Blood Urine 1+ (Negative); Color Urine Yellow (Yellow); Glucose Urine UA 3+ mg/dL (Negative); Ketones Urine Negative (Negative); Leukocyte Esterase Ur 2+ LEU/UL (Negative); Mucus Urine Rare /lpf; Nitrate Urine Negative (Negative); Protein Urine 1+ mg/dL (Negative); RBC Urine 0-2 /hpf (0-2); Squamous Epithelial Cell Urine Few /hpf (Few); Urobilinogen Urine Negative mg/dL (<2.0)
--- NOTE | 2020-12-15 01:34 | ADMGEN ---
This patient, Denise Segura, was admitted to IMU Room 213-01 at approximately 1:34. Patient/family oriented to hospital policies and general routines including ID bracelet, bed and alarms, visiting hours, pain management, procedures, bathroom and other care routines, personal items, smoking policy, room service/diet, and visiting hours. Information on how to activate the Rapid Response Team has been discussed. Patient/Family are encouraged to report perceived risks to care and to ask questions if they do not understand what they are told or what they should do. Received report from LYNDA Purvis
--- NOTE | 2020-12-15 01:54 | ECHO_ITS ---
Patient Info Name: Denise Segura Age: 85 years : 1935 Gender: Female Ht: 62 in Wt: 152 lbs BSA: 1.76 m2 HR: 118 bpm BP: 147 / 63 mmHg Heart Rhythm: Atrial Fibrillation Technical Quality: Good Exam Date: 12/15/2020 4:28 PM Exam Location: [facility] Pulmonary Exam Room: ICU 7 Patient Status: Inpatient Admit Date: 12/14/2020 Staff Ordering Physician: Layo Muniz MD Community Resource Officer: Margo Rice RDCS Attending Provider: Layo Muniz MD Referring Physician: Flavio LUBIN; Exam Type: CA echo doppler color flow Study Info Indications - chf ppm afib cad Complete two-dimensional, color flow and Doppler transthoracic echocardiogram is performed. Summary 1. Complete two-dimensional, color flow and Doppler transthoracic echocardiogram is performed. 2. Normal left ventricular size and thickness. There was akinesis of the mid and distal septum and anterior wall with dyskinesis of the apex and akinesis of the distal inferior wall. This is consistent with an ischemic or Takotsubo cardiomyopathy. The ejection fraction visually is 30-35%. Diastolic function is indeterminate. 3. Left atrial chamber dimension is moderately enlarged. 4. Linear artifact in right ventricle suggestive of catheter(s), pacemaker lead(s), or ICD lead(s). 5. There is mild mitral valve regurgitation. 6. There is mild to moderate tricuspid valve regurgitation. 7. No pulmonary hypertension, estimated pulmonary arterial systolic pressure is 30 mmHg. 8. Dilated inferior vena cava with no collapse upon inspiration consistent with elevated right atrial pressure, 10 mmHg. 9. Atrial fibrillation. Left Ventricle Left ventricular chamber dimension is normal. Left ventricular systolic function is severely reduced, estimated at 30-35%. There is no increased left ventricular wall thickness. Left ventricular septal wall motion is normal. The left ventricular diastolic function is indeterminate. Right Ventricle Right ventricular chamber dimension is normal. Right ventricular systolic function is normal. Linear artifact in right ventricle suggestive of catheter(s), pacemaker lead(s), or ICD lead(s). Left Atria Left atrial chamber dimension is moderately enlarged. Right Atria Right atrial chamber dimension is normal. Aortic Valve The aortic valve is trileaflet. There is no aortic valve sclerosis. There is no aortic valve stenosis. There is trace aortic valve regurgitation. Pulmonic Valve The pulmonic valve is normal. There is no pulmonic valve stenosis. There is trace pulmonic regurgitation. Mitral Valve The mitral valve has calcified annulus. There is no mitral valve stenosis. There is mild mitral valve regurgitation. Tricuspid Valve The tricuspid valve leaflets are normal. There is no significant tricuspid valve stenosis. There is mild to moderate tricuspid valve regurgitation. No pulmonary hypertension, estimated pulmonary arterial systolic pressure is 30 mmHg. Pericardium/Pleural The pericardium appears normal. There is no pericardial effusion. Inferior Vena Cava Dilated inferior vena cava with no collapse upon inspiration consistent with elevated right atrial pressure, 10 mmHg. Aorta The aortic root size at the sinus of Valsalva is normal. The prox ascending aorta size is normal. Left Ventricular Outflow Tract Name Value Normal ---------
--- NOTE | 2020-12-15 01:55 | PM.IMHP ---
H&P: HPI History of Present Illness Date/Time: 12/15/20 01:55 Chief Complaint: Worsening shortness of breath over the past 3 days Narrative: This is a pleasant 85 year old female with known history of chronic diastolic heart failure, atrial fibrillation s/p Watchman procedure, CKD stage III, HTN among many other comorbidities who presented to the hospital with severe shortness of breath. She has had increased shortness of breath over the past 3 days but yesterday it got to a point that she couldn't ignore anymore. She complains of worsening shortness of breath with exertion and LE swelling. Associated symptoms include severe fatigue. She has been taking her medications as prescribed. She denies any chest pain, coughing, fevers, chills, nausea, vomiting, abdominal pain, dysuria, diarrhea, or rectal bleeding. The patient was initiated on Bipap on arrival to the ER and CXR demonstrated bilateral pulmonary edema. She was treated with Lasix IV. The patient has been tested several times in the past for COVID-19 and has always been negative. [place] she was tested again for COVID-19 in the ER. On my encounter with her fariba she states she is feeling much better now. No other complaints. Review of Systems Review of Systems: All systems reviewed & are unremarkable except as noted in HPI and below PMFSH Past Medical History Medical History Abscess of arm, left Abscess of knee, right Adverse reaction to MALA inhibitor drug AVM (arteriovenous malformation) of duodenum, acquired Barretts esophagus Status post radiofrequency ablation. Bartholin cyst Status post excision. 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 Bland. Chronic anemia With history of blood transfusion. Chronic atrial fibrillation, unspecified Chronic kidney disease Stage III. Baseline creatinine appears to fluctuate between 1.0 and 1.20. Closed fracture of fourth lumbar vertebra with routine healing Colon cancer (1999) Status post right hemicolectomy. There was recurrence at the splenic fracture, which was resected in September [address] Duran. Coronary artery disease Cardiac catheterization June 2018 with high-grade stenosis in the proximal mid right coronary artery and mild stenosis of the mid LAD with bare metal stent placement due to history of GI bleeding Diastolic congestive heart failure Echocardiogram in September 2018 showed an ejection fraction of 70-75% with severe left atrial enlargement and moderate right atrial enlargement. Dyspnea on exertion Encounter for surgical aftercare following surgery on the digestive system Facial abscess Fall Frequent headaches GERD (gastroesophageal reflux disease) With history of peptic ulcers. History of atrial flutter Status post ablation of the cavo-tricuspid isthmus per Dr. Jaffe at [facility]. Hypercholesterolemia Hyperlipidemia Hyperlipidemia, unspecified Hypertension Hypertensive heart and chronic kidney disease with heart failure and stage 1 through stage 4 chronic kidney disease, or unspecified chronic kidney disease Hypokalemia Intestinal metaplasia of gastric mucosa Laceration of skin of forehead Mitral and aortic insufficiency Moderate pulmonary arterial systolic hypertension On echocardiogram in September 2018 with an estimated peak RVSP 45-50 mmHg. Occipital headache Paroxysmal atrial fibrillation She is maintained on amiodarone. She had been on metoprolol in the past, but that was stopped due to bradycardia. Given ongoing problems with chronic GI loss, a watchman device was inserted in June 2020 at [place]. Her lion tamer is Dr. Jake Bravo. Paroxysmal atrial fibrillation Peptic ulcer disease With history of GI bleed. Shortness of breath Spinal stenosis Swelling Syncope and collapse Tachycardia-bradycardia syndrome Status post permanen
[2020-12-15 02:20] LABS: Troponin I < 0.012 ng/mL (0.000-0.034)
[2020-12-15 03:55] LABS: Hematocrit 40.3 % (37.0-47.0); Mean Corpuscular HGB Conc 29.8 g/dl (32-36); Mean Corpuscular Hemoglobin 28.8 pg (26-34); Mean Corpuscular Volume 96.6 fl (80-100); Mean Platelet Volume 10.5 fl (7.4-10.4); Platelet Count Result 231 k/mm3 (150-375); Red Blood Count 4.17 M/mm3 (4.2-5.4); Red Cell Distribution Width 17.7 % (11.5-14.5)
[2020-12-15 04:09] LABS: Anion Gap 5 mmol/L (8-16); Blood Urea Nitrogen 20 mg/dL (7-17); Calcium 7.8 mg/dL (8.4-10.2); Carbon Dioxide 31 mmol/L (22-30); Chloride 102 mmol/L (98-107); Estimated CRCL calculation 29 ml/min; Estimated Glomerular Filt Rate 43; Glucose 338 mg/dL (65-105); Magnesium 1.8 mg/dL (1.6-2.3); Potassium 3.2 mmol/L (3.4-5.0); Sodium 138 mmol/L (137-145)
[2020-12-15 04:20] LABS: Troponin I < 0.012 ng/mL (0.000-0.034)
[2020-12-15 04:36] LABS: Band Neutrophils Percent 14 % (0-6); Lymphocytes Absolute Manual 0.27 K/mm3 (1.1-4.5); Monocytes Absolute Manual 0.45 K/mm3 (0.1-0.90); Monocytes Percent Manual 5 % (3-9); Neutrophils Absolute Manual 8.28 K/mm3 (1.7-7.2); Neutrophils Percent Manual 78 % (46-73); Platelet Estimate Adequate (Adequate); Total Cells Counted 100
[2020-12-15 04:37] LABS: Anisocytosis 1+ (NORMAL)
[2020-12-15] MEDS: ALBUTEROL SULFATE NEB 2.5 MG/0.5 ML INH 5 MG INHALATION (04:49)
[2020-12-15 05:27] LABS: Thyroid Stimulating Hormone Reflex 0.403 uIU/mL (0.465-4.68)
[2020-12-15 06:08] LABS: Free T4 Free Thyroxine Reflex 2.23 ng/dL (0.78-2.19)
[2020-12-15] MEDS: LORazepam INJ (*CRX) 2 MG/ML VIAL (06:24)
[2020-12-15 06:26] LABS: Alveolar/Arterial O2 Gradient 603.1 mmHg; Base Excess ABG -0.1 mEq/l (+/-2.0); Device NON-INVASIVE VENT; Fractional Inspired Oxygen 100 %; HCO3 ABG 25.2 mEq/l (22.0-26.0); Modified Allen's Test Pass; Oxygen Content ABG 17.3 %vol (16.0-22.0); Oxygen Saturation ABG 92.7 % (95.0-100.0); Oxyhemoglobin 91.2 % THb (90.0-100.0); PCO2 ABG 43.7 mmHg (35.0-45.0); PO2 ABG 66.2 mmHg (80.0-100.0); PO2 FiO2 Ratio Arterial Blood 0.66 %; Site Drawn LEFT RADIAL; Total Hemoglobin 13.5 g/dL (12.0-18.0); pH ABG 7.379 (7.350-7.450)
[2020-12-15 06:27] LABS: Non-Invasive Expiratory Pressure 8 CMH2O; Non-Invasive Inspiratory Pressure 20 CMH2O; Non-Invasive Vent Rate 12 /MIN
--- NOTE | 2020-12-15 07:08 | WPDPROCEDUR ---
Procedures Intubation Intubation Date: 12/15/20 Intubation Time: 06:50 A pre-procedural Time-Out was completed immediately before starting the procedure and confirmed: Patient Identification, Site, Procedure, Patient Position and the Availability of Requisite Equipment: Yes Sedative: etomidate Mg given: 15 Paralytic: rocuronium Mg given: 45 Laryngoscope: fiber optic video scope Assist device used: fiber optic device ET tube size: 7.5 Tube secured depth (cm): 23 Tube secured location: teeth Tube placement confirmation: visualized tube passing through cords, equal breath sounds bilaterally, no breath sounds over epigastrium and confirmation by capnometry Patient tolerated procedure: well Intubation complications: none Additional comments: Date of service was 12/15/2020 at 07:50 hrs
[2020-12-15] MEDS: FENTANYL 2,500MCG/NS250ML(*CRX 2,500 MCG/250 ML BAG IV CONT (07:26)
[2020-12-15] MEDS: RAPID SEQUENCE INTUBATION KIT 1 EACH (07:27)
[2020-12-15] MEDS: METOPROLOL TARTRATE INJ 5 MG/5 ML VIAL IV PUSH (07:28)
--- NOTE | 2020-12-15 08:19 | PM.EVENT ---
Event Note Event Note Event Note: Transfer Note This 85 year old female was admitted for acute respiratory failure tonight and has been on Bipap. Nursing informed me that the patient's oxygen requirements have increased. We have slowly maxed her out on the Bipap and she is now on 100% FiO2 and cannot maintain her oxygen sats. STAT ABG was obtained which confirmed hypoxemia. I discussed with the patient intubation and mechanical ventilation as she cannot maintain her oxygen sats on the Bipap and she is in agreement. We will transfer the patient to ICU and prepare for intubation and mechanical ventilation. I have discussed the plan in detail with out Automotive Diagnostic Technician, Dr. Morales and he is in agreement. All questions were answered to the patient's satisfaction.
[2020-12-15] MEDS: METOPROLOL TARTRATE INJ 5 MG/5 ML VIAL (08:34)
[2020-12-15] MEDS: MIDAZOLAM HCL (*CRX) 2 MG/2 ML VIAL (08:34)
[2020-12-15] MEDS: NOREPINEPHRINE 8 MG/D5W 250 ML 8 MG/250 ML BAG 28.13 MG IV CONT (08:55)
[2020-12-15] MEDS: ROCURONIUM BROMIDE 50 MG/5 ML VIAL 10 MG IV PUSH (09:05)
[2020-12-15] MEDS: AMIODARONE 360 MG/D5W 200 ML 360 MG/200 ML BAG 33.33 MG IV CONT (09:55)
[2020-12-15] MEDS: AMIODARONE 150 MG/D5W 100 ML 150 MG/100 ML BAG 600 MG IV CONT (09:55)
[2020-12-15] MEDS: ENOXAPARIN 40 MG/0.4 ML SYRINGE SUB-Q (09:56)
--- NOTE | 2020-12-15 10:07 | PM.IMPN ---
Progress Note: A&P Assessment and Plan (1) Acute respiratory failure: Qualifiers: Respiratory failure complication: hypoxia Qualified Code(s): J96.01 - Acute respiratory failure with hypoxia Code(s): J96.00 - Acute respiratory failure, unspecified whether with hypoxia or hypercapnia Status: Acute Assessment and Plan: Secondary to acute CHF. COVID-19 test pending. PNA being considered as well but no fevers and WBC normal. Patient's condition worsened this morning requiring intubation. Continue supportive care. Continue Lasix as BP toelrates. Continue abx for now. (2) Shock: Code(s): R57.9 - Shock, unspecified Status: Acute Assessment and Plan: BP dropped when placing a central line. Could be related to sedation +/- Diltiazem. Levophed started after central line placed. BP improved. Wean Levophed as toerlated. (3) Acute heart failure with preserved ejection fraction: Code(s): I50.31 - Acute diastolic (congestive) heart failure Status: Acute Assessment and Plan: BNP 00116. CXR showing pulmonary edema. Continue Lasix IV as blood pressure tolerates. Monitor Is and Os, daily weights. Echocardiogram ordered. (4) Suspected COVID-19 virus infection: Code(s): Z20.822 - Contact with and (suspected) exposure to COVID-19 Status: Acute Assessment and Plan: The patient has been swabbed for COVID-19. Continue droplet isolation. Continue supportive care. (5) Atrial fibrillation: Qualifiers: Atrial fibrillation type: unspecified Qualified Code(s): I48.91 - Unspecified atrial fibrillation Code(s): I48.91 - Unspecified atrial fibrillation Status: Chronic Assessment and Plan: s/p watchman procedure. Diltiazem drip stopped. HR poorly controlled. Amiodarone IV started. Continue amiodarone. Not on anticoagulation on admission. (6) Abnormal glucose: Code(s): R73.09 - Other abnormal glucose Status: Acute Assessment and Plan: Glucose 389 on admission. r/o diabetes mellitus. The patient had a normal HgbA1c on her last admission. Repeat HgbA1c pending. Continue accuchecks, SSI Coverage, hypoglycemic protocol. (7) Hypertension: Qualifiers: Hypertension type: essential hypertension Qualified Code(s): I10 - Essential (primary) hypertension Code(s): I10 - Essential (primary) hypertension Status: Chronic Assessment and Plan: As above. Anti-HTN medications on hold. (8) Chronic kidney disease: Qualifiers: Chronic kidney disease stage: stage 3 (moderate) Qualified Code(s): N18.3 - Chronic kidney disease, stage 3 (moderate) Code(s): N18.9 - Chronic kidney disease, unspecified Status: Chronic Assessment and Plan: Cr 1.1 and at baseline. Monitor renal function. Avoid nephrotoxic agents. renally dose medications. (9) Coronary artery disease: Qualifiers: Associated angina: without angina Coronary Disease-Associated Artery/Lesion type: [place] artery [place] vs. transplanted heart: [place] heart Qualified Code(s): I25.10 - Atherosclerotic heart disease of [place] coronary artery without angina pectoris Code(s): I25.10 - Atherosclerotic heart disease of [place] coronary artery without angina pectoris Status: Chronic Assessment and Plan: No chest pain on admission. Adjust medciations as clinically able. (10) DVT prophylaxis: Code(s): Z29.9 - Encounter for prophylactic measures, unspecified Status: Chronic Assessment and Plan: Lovenox Subjective Date/time seen: 12/15/20 10:07 Interval history: Date of service 12/15 85 year old female with known history of chronic diastolic heart failure, atrial fibrillation s/p Watchman procedure, CKD stage III, HTN among many other comorbidities who presented to the hospital with severe shortness of breath.
[2020-12-15 10:16] LABS: Fractional Inspired Oxygen 100 %; HCO3 ABG 22.1 mEq/l (22.0-26.0); Oxygen Content ABG 17.6 %vol (16.0-22.0); Oxygen Saturation ABG 94.8 % (95.0-100.0); PCO2 ABG 39.4 mmHg (35.0-45.0); PO2 ABG 75.6 mmHg (80.0-100.0); PO2 FiO2 Ratio Arterial Blood 0.76 %; Total Hemoglobin 13.3 g/dL (12.0-18.0); pH ABG 7.366 (7.350-7.450)
[2020-12-15 10:17] LABS: Arterial Blood Gas PEEP 12 cmH2O; Arterial Blood Gas Tidal Volume 380 ml; Arterial Blood Gas Vent Mode ASSIST CONTROL; Arterial Blood Gas Ventilator rate 26 /MIN; Device VENTILATOR; Modified Allen's Test Pass; Site Drawn RIGHT RADIAL
--- NOTE | 2020-12-15 11:12 | WPDCNINT ---
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 -requiring peep of 12 and 100% FiO2. Low tidal volume strategy -SARS-CoV-2 PCR pending -start patient on ceftriaxone and azithromycin (initiated on 12/15/2020) -patient also received Lasix in the ER -sedated with fentanyl and Versed infusion (2) Shock: Code(s): R57.9 - Shock, unspecified Status: Acute Assessment and Plan: Patient was hypertensive, AFib RVR, patient was given Cardizem infusion and dropped her blood pressures. -patient also given beta-blockers, could also be related to sedation and positive pressure ventilation -patient started on Levophed, maintain mean arterial pressures greater than 65 mmHg -continue antibiotics as above -urine cultures growing E coli -will obtain blood and sputum culture -central line placed in left IJ on 12/15/2020 (3) Atrial fibrillation: Qualifiers: Atrial fibrillation type: unspecified Qualified Code(s): I48.91 - Unspecified atrial fibrillation Code(s): I48.91 - Unspecified atrial fibrillation Status: Chronic Assessment and Plan: Patient with AFib RVR with heart rate in the 150s to 170s, Cardizem infusion was started as blood pressures were in the 160s, blood pressures dropped requiring central line and Levophed. -Cardizem was discontinued, patient started on amiodarone infusion after amiodarone bolus. -patient also has a Watchman device which was placed and [facility] (4) Acute heart failure with preserved ejection fraction: Code(s): I50.31 - Acute diastolic (congestive) heart failure Status: Acute Assessment and Plan: Chest x-ray shows bilateral diffuse edema infiltrates -patient was given Lasix on admission -currently in shock, will hold Lasix for now, peep of 12 which may be able to help dissipate some fluid -will restart Lasix on blood pressure tolerates -echocardiogram has been ordered (5) UTI (urinary tract infection): Code(s): N39.0 - Urinary tract infection, site not specified Status: Acute Assessment and Plan: UA with possible UTI, history of E coli UTI -continue ceftriaxone as above -await urine culture results (6) Suspected COVID-19 virus infection: Code(s): Z20.822 - Contact with and (suspected) exposure to COVID-19 Status: Acute Assessment and Plan: Diffuse bilateral infiltrates, patient presented with shortness of breath, cough, fevers, weakness -SARS-CoV-2 PCR pending -continue droplet, airborne, contact isolation/precautions -if patient is COVID-19 positive will start of dexamethasone and Remdesivir (7) Abnormal glucose: Code(s): R73.09 - Other abnormal glucose Status: Acute Assessment and Plan: Patient is hyperglycemic -hemoglobin A1c on 10/10/2020 was 5.0 -will recheck hemoglobin A1c -continue Accu-Cheks and sliding scale insulin, added Levemir (8) Chronic kidney disease: Qualifiers: Chronic kidney disease stage: stage 3 (moderate) Qualified Code(s): N18.3 - Chronic kidney disease, stage 3 (moderate) Code(s): N18.9 - Chronic kidney disease, unspecified Status: Chronic Assessment and Plan: Patient with history of chronic kidney disease with creatinine between 1.1 and 1.2. -creatinine stable at this time -continue monitor urine output, electrolytes and renal function (9) DVT prophylaxis: Code(s): Z29.9 - Encounter for prophylactic measures, unspecified Status: Chronic Assessment and Plan: DVT prophyl
[2020-12-15] MEDS: CENTRAL LINE FLUSH 10 ML IV PUSH ×3 (11:19→20:02)
[2020-12-15] MEDS: PANTOPRAZOLE SODIUM IV 40 MG VIAL IV PUSH ×2 (11:20→20:01)
[2020-12-15 11:45] LABS: Glucose Point of Care 434 (65-105)
[2020-12-15] MEDS: INSULIN ASPART (*BKC) 100 UNITS/ML SUB-Q ×2 (12:26→18:08)
[2020-12-15] MEDS: INSULIN DETEMIR 100 UNITS/ML 10 UNITS SUB-Q ×2 (12:27→20:02)
--- NOTE | 2020-12-15 13:51 | WPDPROCEDUR ---
Procedures Central Line Placement Left IJ: Central Line Date: 12/15/20 Central Line Time: 07:59 Discussed w/ the patient/family/POA,the placement of a central venous catheter, including its clinical necessity/indication & associated potential risks, benifits and alternatives.: Yes The patient/family/POA understand(s) and acknowledge(s) the need to proceed with central venous catheter insertion as an important element of the patient's clinical management.: Yes Time Out Performed: Yes Patient Position: supine Patient placed on monitor/pulse ox: Yes Provider Prep: mask, sterile gown, sterile gloves, Max. sterile barrier precautions, cap and hand hygiene with conventional soap/water or alcohol based hand rub Central line prep: 2% Chlorhexidine scrub Local anesthesia used: lidocaine 1% Amount of anesthesia used (ml): 3 Sterile US Technique with sterile gel/sterile probe covers: Yes Central line lumen inserted: single and triple Length (cm): 16 Depth of Insertion (cm): 16 Post Procedure: sutured in place, good blood return, all ports aspirated, flushed, capped, transparent dressing, hemostatic product, antimicrobial product, securement product and aseptic technique maintained throughout procedure Post procedure x-ray: tip of catheter in good position and no pneumothorax seen Patient tolerated procedure: well Complications: none
[2020-12-15] MEDS: AMIODARONE 360 MG/D5W 200 ML 360 MG/200 ML BAG 16.67 MG IV CONT (15:19)
[2020-12-15 16:26] LABS: Lactic Acid Reflex 4.4 mmol/L (0.7-2.1)
--- NOTE | 2020-12-15 16:52 | PC.NURSE ---
Talked with daughter Jena about midline that was placed prior to admission. Daughter Jena stated the midline was inserted in June? due to frequent iron and blood transfusion; also stated that they go for weekly checks of midline to someplace in [place] (she couldn't remember the name).
[2020-12-15] MEDS: SODIUM CHLORIDE 0.9% IV 1,000 ML 999 ML IV CONT (18:09)
[2020-12-15] MEDS: MIDAZOLAM HCL (*CRX) 2 MG/2 ML VIAL 1 MG IV PUSH (18:43)
[2020-12-15 18:48] LABS: Glucose Point of Care 349 (65-105)
[2020-12-15 19:12] LABS: Reflex Lactic Acid Yes or No Add Lactic
[2020-12-15] MEDS: NOREPINEPHRINE 8 MG/D5W 250 ML 8 MG/250 ML BAG 20.63 MG IV CONT (19:51)
[2020-12-15 20:44] LABS: Lactic Acid 2.4 mmol/L (0.7-2.1)
[2020-12-15 23:36] LABS: Glucose Point of Care 191 (65-105)
[2020-12-16] VITALS (39 sets, daily range): BP systolic 82–130; BP diastolic 48–75; PULSE 96–137; RESP 26; TEMP 36.4–37.6; O2SAT 93–100
[2020-12-16 01:27] LABS: SARS-CoV-2 RNA PCR Negative
[2020-12-16] MEDS: AMIODARONE 360 MG/D5W 200 ML 360 MG/200 ML BAG 16.67 MG IV CONT ×2 (02:14→14:20)
[2020-12-16 03:44] LABS: Basophils Percent Auto 0.1 % (0.2-1.2); Eosinophils Percent Auto 0.4 % (0-4.4); Hemoglobin 11.4 g/dL (12.0-15.0); Immature Granulocyte Absolute 0.06 K/mm3 (0.00-0.031); Immature Granulocyte Percent A 0.7 % (0-0.5); Lymphocytes Absolute Auto 0.35 K/mm3 (0.9-3.2); Lymphocytes Percent Auto 4.1 % (18.3-44.2); Mean Corpuscular HGB Conc 30.8 g/dl (32-36); Mean Corpuscular Hemoglobin 28.4 pg (26-34); Mean Corpuscular Volume 92.3 fl (80-100); Mean Platelet Volume 9.9 fl (7.4-10.4); Monocytes Absolute Auto 0.3 K/mm3 (0.1-0.6); Monocytes Percent Auto 3.7 % (2.6-8.5); Neutrophils Absolute Auto 7.7 K/mm3 (1.3-6.7); Nucleated Red Blood Cells Perc 0.2 % (0.0-0.2); Platelet Count Result 280 k/mm3 (150-375); Red Blood Count 4.01 M/mm3 (4.2-5.4); Red Cell Distribution Width 17.4 % (11.5-14.5); White Blood Count 8.5 K/mm3 (4.5-10.0)
[2020-12-16 04:00] LABS: Lactic Acid Reflex 1.5 mmol/L (0.7-2.1)
[2020-12-16 04:02] LABS: Alanine Aminotransferase 17 U/L (4-35); Albumin Level 2.7 g/dL (3.5-5.1); Alkaline Phosphatase 182 U/L (38-126); Anion Gap 5 mmol/L (8-16); Aspartate Amino Transferase 28 U/L (14-36); Bilirubin,Total 0.7 mg/dL (0.2-1.3); Blood Urea Nitrogen 27 mg/dL (7-17); Calcium 7.6 mg/dL (8.4-10.2); Carbon Dioxide 29 mmol/L (22-30); Chloride 103 mmol/L (98-107); Estimated CRCL calculation 28 ml/min; Estimated Glomerular Filt Rate 39; Glucose 142 mg/dL (65-105); Magnesium 1.9 mg/dL (1.6-2.3); Potassium 3.1 mmol/L (3.4-5.0); Sodium 137 mmol/L (137-145)
[2020-12-16 04:12] LABS: Phosphorus < 1.0 mg/dL (2.5-4.5)
[2020-12-16 04:23] LABS: Anisocytosis 1+ (NORMAL); Platelet Estimate Adequate (Adequate)
[2020-12-16 04:34] LABS: Alveolar/Arterial O2 Gradient 454.8 mmHg; Base Excess ABG 1.8 mEq/l (+/-2.0); Carboxyhemoglobin 0.3 % THb (0-2.0); Device VENTILATOR; Fractional Inspired Oxygen 80 %; HCO3 ABG 25.8 mEq/l (22.0-26.0); Methemoglobin ABG 0.3 %THb (0-1.5); Modified Allen's Test Pass; Oxygen Saturation ABG 95.7 % (95.0-100.0); Oxyhemoglobin 94.9 % THb (90.0-100.0); PCO2 ABG 38.4 mmHg (35.0-45.0); PO2 ABG 75.3 mmHg (80.0-100.0); PO2 FiO2 Ratio Arterial Blood 0.94 %; Reduced Hemoglobin 4.5 %THb (0-5.0); Site Drawn RIGHT RADIAL; Total Hemoglobin 12.7 g/dL (12.0-18.0); pH ABG 7.445 (7.350-7.450)
[2020-12-16 04:35] LABS: Arterial Blood Gas PEEP 12 cmH2O; Arterial Blood Gas Tidal Volume 380 ml; Arterial Blood Gas Vent Mode CMV; Arterial Blood Gas Ventilator rate 26 /MIN
[2020-12-16] MEDS: CENTRAL LINE FLUSH 10 ML IV PUSH ×3 (05:26→20:42)
[2020-12-16] MEDS: PANTOPRAZOLE SODIUM IV 40 MG VIAL IV PUSH ×2 (08:03→20:37)
[2020-12-16] MEDS: ENOXAPARIN 40 MG/0.4 ML SYRINGE SUB-Q (08:03)
[2020-12-16 08:22] LABS: Glucose Point of Care 104 (65-105)
[2020-12-16] MEDS: POTASSIUM CHLORIDE 20 MEQ PACKET (FOR LIQUID) 40 MEQ PO (08:23)
[2020-12-16] MEDS: POTASSIUM PHOS,M-BASIC-D-BASIC 20 MMOL in SODIUM CHLORIDE 0.9% IV 250 ML 62.5 MMOL IVPB (08:49)
[2020-12-16] MEDS: NOREPINEPHRINE 8 MG/D5W 250 ML 8 MG/250 ML BAG 18.75 MG IV CONT (09:19)
--- NOTE | 2020-12-16 09:28 | PM.CNCAR ---
Assessment and Plan Additional Plan 85-year-old lady with: Coronary artery disease with remote history of RCA stenting and paroxysmal atrial fibrillation. Patient has been in atrial fib for a while as an outpatient. My partner who follows her has advanced her amiodarone dosage in hopes of restoring sinus rhythm. As of this time she has still and persisted in atrial fibrillation and is now in the ICU because of respiratory failure and is on ventilator support. Echocardiogram demonstrates moderately depressed left ventricular systolic function. In this setting she would benefit hemodynamically significantly from taoist of sinus rhythm. Since she has a for left atrial occluded device in place and has been on amiodarone I will attempted electrical cardioversion today. Hopefully sinus rhythm can be restored. Amandeep Mercado MD [facility] History of Present Illness History of Present Illness Consult date/time: 12/16/20 09:28 Consult reason: atrial fibrillation Reason For Visit: CHF acute exacerbation Narrative: This is an 85-year-old woman who is normally followed in our office by Dr. Bravo who has a history of coronary artery disease and atrial fibrillation. The patient has been managed by Dr. bledsoe for a long time in the office and recently has been in atrial fibrillation. There has been the recommendation made to advance her amiodarone dosage in hopes of getting her back into sinus rhythm. The patient has a long history of atrial fibrillation with previous cardioversions she also has a pacemaker that was implanted couple of years ago by Dr. Clemente as she has had the pattern of tachy-hoang syndrome and difficulty with medical management because of problematic/symptomatic bradycardia. Her case has also been complicated by significant anemia and GI bleeding which has precluded systemic anticoagulation for this reason she was referred to [facility] where she underwent implantation of a Watchman device. Regarding her coronary artery disease she does have a history of previous PCI to the right coronary artery using a bare metal stent several years ago this procedure was done by Dr. Watts and she also at that time was found to have mild non flow limiting disease in the LAD. She entered the hospital couple of days ago with increasing shortness of breath. Of course she was suspected of having sanz virus but she has been tested for this multiple times including on this hospitalization and has been found to be negative. Apparently last evening she became severely short of breath and despite a DNR orders the desire on the part of the family was for her to be brought to the ICU intubated and placed on mechanical ventilator support. As such she is currently in ICU room 7. Intubated and incapable of providing any history to me directly. Her chart indicates that she is still in atrial fibrillation her heart rate is about 110-120 beats per minute and she is receiving amiodarone intravenously as well as I inotropic support. [facility] Past Medical History Medical History Abscess of arm, left Abscess of knee, right Adverse reaction to MALA inhibitor drug AVM (arteriovenous malformation) of duodenum, acquired Barretts esophagus Status post radiofrequency ablation. Bartholin cyst Status post excision. 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 Bland. Chronic anemia With history of blood transfusion. Chronic atrial fibrillation, unspecified Chronic kidney disease Stage III. Baseline creatinine appears to fluctuate between 1.0 and 1.20. Closed fracture of fourth lumbar vertebra with routine healing Colon cancer (1999) Status post right hemicolectomy. There was recurrence at the splenic fracture, which was resected in September [address] Duran. Coronary artery disease Cardiac catheterization June 2018
--- NOTE | 2020-12-16 10:38 | ECG_ITS ---
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
--- NOTE | 2020-12-16 11:12 | P.PCNCVR_ITS ---
Cardioversion Cardioversion Date of procedure: 12/16/20 Procedure: DC cardioversion Pre-op diagnosis: Recurrent/persistent atrial fib Indications: Hemodynamic instability with recurrent AFib Description of procedure: Patient was already sedated in the ICU on intravenous midazolam and fentanyl infusions. The defibrillator patches were placed in the AP position connected to this fit defibrillator in synchronized. Patient was cardioverted with 200 joules with no effect on her rhythm. She was then cardioverted in a synchronized fashion with 360 joules which did terminate atrial fibrillation restoring sinus rhythm alternating with atrial pacing. Unfortunately this only persisted for 15-20 seconds not even long enough to record an ECG and she was back in atrial fibrillation. Sedation: As above patient was already on intravenous midazolam and fentanyl infusion Findings: Briefly successful cardioversion as detailed above Conclusion: DC cardioversion of persistent atrial fibrillation after failing at 200 joules succeeded at 360 joules but very quickly degenerated back into atrial fibrillation. Amandeep Mercado MD [facility]
--- NOTE | 2020-12-16 11:47 | PCDIET ---
Nutrition Follow-Up Complete: Nutrition Diagnosis: Inadequate oral intake related to oral intubation as evidenced by NPO status. Nutrition Goal: Patient to meet estimated nutritional needs. Goal in progress. Patient tolerating Glucerna 1.2 at 10mL/hr with 30mL water flush every 4 hours. MD order to increase toward goal of 45mL/hr, as recommended. Last recorded weight is 73.3 kg which is increased from last review, despite -I/O. Bowel Motility: Last documented BM on 12/14/20. Labs Reviewed: Hgb (11.4), Glu (142), BUN (27), Cr (1.3), K (3.1), Alb (2.7), PO4 (1.0) Meds Noted: Albuterol, Azithromycin, Rocephin, Fentanyl, Lasix, Novolog, Levophed, Levemir, Versed, Morphine, Protonix, K-Phos, KCl Additional Notes: No documented skin breakdown. Will continue to monitor with same goal. Nutrition Monitoring and Evaluation: Follow up every Saturday/Saturday.
[2020-12-16 12:24] LABS: Glucose Point of Care 164 (65-105)
--- NOTE | 2020-12-16 13:38 | WPDINTPN ---
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 -requiring peep of 12 and 100% FiO2. Low tidal volume strategy -SARS-CoV-2 PCR pending -start patient on ceftriaxone and azithromycin (initiated on 12/15/2020) -patient also received Lasix in the ER -sedated with fentanyl and Versed infusion (2) Shock: Code(s): R57.9 - Shock, unspecified Status: Acute Assessment and Plan: Patient was hypertensive, AFib RVR, patient was given Cardizem infusion and dropped her blood pressures. -patient also given beta-blockers, could also be related to sedation and positive pressure ventilation -patient started on Levophed, maintain mean arterial pressures greater than 65 mmHg -continue antibiotics as above -urine cultures growing E coli -will obtain blood and sputum culture -central line placed in left IJ on 12/15/2020 (3) Atrial fibrillation: Qualifiers: Atrial fibrillation type: unspecified Qualified Code(s): I48.91 - Unspecified atrial fibrillation Code(s): I48.91 - Unspecified atrial fibrillation Status: Chronic Assessment and Plan: Patient with AFib RVR with heart rate in the 150s to 170s, Cardizem infusion was started as blood pressures were in the 160s, blood pressures dropped requiring central line and Levophed. -Cardizem was discontinued, patient started on amiodarone infusion after amiodarone bolus. -patient also has a Watchman device which was placed and [facility] -appreciate cardiology evaluation, patient was cardioverted this morning, by Cardiology, she did go into sinus rhythm briefly but degenerated back and to atrial fibrillation. Discussed with Cardiology, continue amiodarone at this time (4) Acute heart failure with preserved ejection fraction: Code(s): I50.31 - Acute diastolic (congestive) heart failure Status: Acute Assessment and Plan: Chest x-ray shows bilateral diffuse edema infiltrates -patient was given Lasix on admission -currently in shock, will hold Lasix for now, peep of 12 which may be able to help dissipate some fluid -will restart Lasix on blood pressure tolerates -echocardiogram 12/15/2020: EF of 30-35%, mild to moderate tricuspid regurg, no pulmonary hypertension (5) UTI (urinary tract infection): Code(s): N39.0 - Urinary tract infection, site not specified Status: Acute Assessment and Plan: UA with possible UTI, history of E coli UTI -continue ceftriaxone as above -await urine culture results (6) Suspected COVID-19 virus infection: Code(s): Z20.822 - Contact with and (suspected) exposure to COVID-19 Status: Acute Assessment and Plan: Diffuse bilateral infiltrates, patient presented with shortness of breath, cough, fevers, weakness -SARS-CoV-2 PCR negative on 12/14/2020 -discontinue droplet, airborne, contact isolation/precautions (7) Abnormal glucose: Code(s): R73.09 - Other abnormal glucose Status: Acute Assessment and Plan: Patient is hyperglycemic -hemoglobin A1c on 10/10/2020 was 5.0 -continue Accu-Cheks and sliding scale insulin, added Levemir (8) Chronic kidney disease: Qualifiers: Chronic kidney disease stage: stage 3 (moderate) Qualified Code(s): N18.3 - Chronic kidney disease, stage 3 (moderate) Code(s): N18.9 - Chronic kidney disease, unspecified Status: Chronic Assessment and Plan: Patient with history of chronic kidney disease with creatinine between 1.1 and 1.2. -creatinine stable at this time -con
[2020-12-16] MEDS: FENTANYL 2,500MCG/NS250ML(*CRX 2,500 MCG/250 ML BAG 7.5 MCG IV CONT (14:18)
[2020-12-16 18:06] LABS: Glucose Point of Care 182 (65-105)
--- NOTE | 2020-12-16 18:10 | PM.IMPN ---
Progress Note: A&P Assessment and Plan (1) Acute respiratory failure: Qualifiers: Respiratory failure complication: hypoxia Qualified Code(s): J96.01 - Acute respiratory failure with hypoxia Code(s): J96.00 - Acute respiratory failure, unspecified whether with hypoxia or hypercapnia Status: Acute Assessment and Plan: Secondary to acute CHF. COVID-19 test negative. PNA being considered as well but no fevers and WBC normal. Patient's condition worsened on 12/15 requiring intubation. Continue supportive care. Lasix as BP tolerates. Continue abx for now. (2) Shock: Code(s): R57.9 - Shock, unspecified Status: Acute Assessment and Plan: BP dropped when placing a central line on 12/15. Could be related to sedation +/- Diltiazem. Levophed started after central line placed. BP remains soft. Wean Levophed as tolerated. (3) Acute heart failure with preserved ejection fraction: Code(s): I50.31 - Acute diastolic (congestive) heart failure Status: Acute Assessment and Plan: BNP 11474. CXR showing pulmonary edema. Continue Lasix IV as blood pressure tolerates. Monitor Is and Os, daily weights. Echocardiogram showing EF 30-35% with AK and DK frausto c/w ischemia vs Takotsubo. Mild valvular disease. (4) Suspected COVID-19 virus infection: Code(s): Z20.822 - Contact with and (suspected) exposure to COVID-19 Status: Acute Assessment and Plan: SARS-CoV-2 negative. Stop droplet isolation. (5) Atrial fibrillation: Qualifiers: Atrial fibrillation type: unspecified Qualified Code(s): I48.91 - Unspecified atrial fibrillation Code(s): I48.91 - Unspecified atrial fibrillation Status: Chronic Assessment and Plan: s/p watchman procedure. Diltiazem drip stopped. HR remains poorly controlled. Not on anticoagulation on admission. (6) Abnormal glucose: Code(s): R73.09 - Other abnormal glucose Status: Acute Assessment and Plan: A1c 5.0 in September. Glucose 389 on admission. Possibly stres response. Levemir started. Glucose better controlled. Continue accuchecks, SSI Coverage, hypoglycemic protocol. (7) Hypertension: Qualifiers: Hypertension type: essential hypertension Qualified Code(s): I10 - Essential (primary) hypertension Code(s): I10 - Essential (primary) hypertension Status: Chronic Assessment and Plan: As above. Anti-HTN medications on hold. (8) Chronic kidney disease: Qualifiers: Chronic kidney disease stage: stage 3 (moderate) Qualified Code(s): N18.3 - Chronic kidney disease, stage 3 (moderate) Code(s): N18.9 - Chronic kidney disease, unspecified Status: Chronic Assessment and Plan: Cr 1.1 on admission. Cr climbed to 1.3. Monitor renal function. Avoid nephrotoxic agents. renally dose medications. (9) Coronary artery disease: Qualifiers: Associated angina: without angina Coronary Disease-Associated Artery/Lesion type: koi artery [place] vs. transplanted heart: koi heart Qualified Code(s): I25.10 - Atherosclerotic heart disease of koi coronary artery without angina pectoris Code(s): I25.10 - Atherosclerotic heart disease of koi coronary artery without angina pectoris Status: Chronic Assessment and Plan: No chest pain on admission. Adjust medications as clinically able. (10) DVT prophylaxis: Code(s): Z29.9 - Encounter for prophylactic measures, unspecified Status: Chronic Assessment and Plan: Lovenox Subjective Date/time seen: 12/16/20 18:10 Interval history: Date of service 12/16 85 year old female with known history of chronic diastolic heart failure, atrial fibrillation s/p Watchman procedure, CKD stage III, and HTN who presented to the hospital with severe shortness of breath. Patient moved to the ICU on
[2020-12-16] MEDS: INSULIN DETEMIR 100 UNITS/ML 10 UNITS SUB-Q (20:45)
[2020-12-16 20:53] LABS: Glucose Point of Care 190 (65-105)
[2020-12-16] MEDS: AMIODARONE 150 MG/D5W 100 ML 150 MG/100 ML BAG 600 MG IV CONT (21:42)
[2020-12-16] MEDS: NOREPINEPHRINE 8 MG/D5W 250 ML 8 MG/250 ML BAG 15 MG IV CONT (23:02)
[2020-12-16] MEDS: AMIODARONE 360 MG/D5W 200 ML 360 MG/200 ML BAG 33.33 MG IV CONT (23:55)
[2020-12-17] VITALS (37 sets, daily range): BP systolic 81–115; BP diastolic 58–97; PULSE 85–136; RESP 24–26; TEMP 36.8–37.7; O2SAT 89–100
[2020-12-17 00:02] LABS: Glucose Point of Care 228 (65-105)
[2020-12-17] MEDS: INSULIN ASPART (*BKC) 100 UNITS/ML SUB-Q ×3 (00:02→17:55)
[2020-12-17 04:05] LABS: Alveolar/Arterial O2 Gradient 181.1 mmHg; Base Excess ABG 0.9 mEq/l (+/-2.0); Carboxyhemoglobin 0.1 % THb (0-2.0); Fractional Inspired Oxygen 40 %; HCO3 ABG 23.8 mEq/l (22.0-26.0); Methemoglobin ABG 0.2 %THb (0-1.5); Oxygen Content ABG 16.5 %vol (16.0-22.0); Oxygen Saturation ABG 94.5 % (95.0-100.0); Oxyhemoglobin 93.5 % THb (90.0-100.0); PCO2 ABG 32.9 mmHg (35.0-45.0); PO2 ABG 66.3 mmHg (80.0-100.0); PO2 FiO2 Ratio Arterial Blood 1.66 %; Reduced Hemoglobin 6.2 %THb (0-5.0); Site Drawn RIGHT RADIAL; Total Hemoglobin 12.5 g/dL (12.0-18.0); pH ABG 7.478 (7.350-7.450)
[2020-12-17 04:06] LABS: Arterial Blood Gas PEEP 12 cmH2O; Arterial Blood Gas Tidal Volume 380 ml; Arterial Blood Gas Vent Mode ASSIST CONTROL; Arterial Blood Gas Ventilator rate 26 /MIN; Device VENTILATOR; Modified Allen's Test Unable to perform
[2020-12-17] MEDS: CENTRAL LINE FLUSH 10 ML IV PUSH ×3 (05:58→22:40)
[2020-12-17 06:05] LABS: Hematocrit 34.4 % (37.0-47.0); Hemoglobin 10.5 g/dL (12.0-15.0); Mean Corpuscular HGB Conc 30.5 g/dl (32-36); Mean Corpuscular Hemoglobin 28.4 pg (26-34); Platelet Count Result 214 k/mm3 (150-375); Red Cell Distribution Width 18.4 % (11.5-14.5); White Blood Count 10.6 K/mm3 (4.5-10.0)
[2020-12-17 06:14] LABS: Lactic Acid Reflex 1.3 mmol/L (0.7-2.1)
[2020-12-17 06:15] LABS: Glucose Point of Care 215 (65-105)
[2020-12-17] MEDS: AMIODARONE 360 MG/D5W 200 ML 360 MG/200 ML BAG 33.33 MG IV CONT ×3 (06:16→18:09)
[2020-12-17 06:43] LABS: Alanine Aminotransferase 18 U/L (4-35); Albumin Level 2.4 g/dL (3.5-5.1); Alkaline Phosphatase 251 U/L (38-126); Anion Gap 5 mmol/L (8-16); Aspartate Amino Transferase 26 U/L (14-36); Bilirubin,Total 0.7 mg/dL (0.2-1.3); Blood Urea Nitrogen 24 mg/dL (7-17); Calcium 7.1 mg/dL (8.4-10.2); Carbon Dioxide 27 mmol/L (22-30); Chloride 102 mmol/L (98-107); Estimated CRCL calculation 30 ml/min; Estimated Glomerular Filt Rate 43; Glucose 208 mg/dL (65-105); Magnesium 1.9 mg/dL (1.6-2.3); Phosphorus 1.6 mg/dL (2.5-4.5); Potassium 3.1 mmol/L (3.4-5.0); Sodium 134 mmol/L (137-145)
[2020-12-17] MEDS: INSULIN DETEMIR 100 UNITS/ML 10 UNITS SUB-Q ×2 (08:56→20:11)
[2020-12-17] MEDS: ENOXAPARIN 40 MG/0.4 ML SYRINGE SUB-Q (08:58)
[2020-12-17] MEDS: PANTOPRAZOLE SODIUM IV 40 MG VIAL IV PUSH ×2 (08:59→20:07)
[2020-12-17 09:37] LABS: Glucose Point of Care 174 (65-105)
[2020-12-17] MEDS: POTASSIUM PHOS,M-BASIC-D-BASIC 20 MMOL in SODIUM CHLORIDE 0.9% IV 250 ML 62.5 MMOL IVPB (10:29)
[2020-12-17 10:34] LABS: Hemoglobin A1C 6.3 % (<5.7)
[2020-12-17] MEDS: METOCLOPRAMIDE HCL INJ 10 MG/2 ML VIAL IV PUSH ×3 (10:34→17:46)
[2020-12-17] MEDS: SODIUM CHLORIDE 0.9% IV 500 ML IV CONT (10:55)
[2020-12-17] MEDS: ALBUMIN HUMAN 25% 12.5 GM/50ML 50 ML IVPB ×2 (12:43→17:46)
[2020-12-17 12:59] LABS: Glucose Point of Care 186 (65-105)
--- NOTE | 2020-12-17 14:17 | WPDINTPN ---
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 -low tidal volume strategy, on peep of 12, 40% FiO2, will decrease PEEP to 10 -SARS-CoV-2 PCR NEGATIVE -continue ceftriaxone and azithromycin (initiated on 12/15/2020) -patient also received Lasix in the ER -sedated with fentanyl and Versed infusion (2) Shock: Code(s): R57.9 - Shock, unspecified Status: Acute Assessment and Plan: Patient was hypertensive, AFib RVR, patient was given Cardizem infusion and dropped her blood pressures. -patient also given beta-blockers, could also be related to sedation and positive pressure ventilation -Continue Levophed, maintain mean arterial pressures greater than 65 mmHg -continue antibiotics as above -urine cultures growing E coli -sputum cultures grew Hemophilus influenzae -blood cultures are negative so far x2 -central line placed in left IJ on 12/15/2020 (3) Atrial fibrillation: Qualifiers: Atrial fibrillation type: unspecified Qualified Code(s): I48.91 - Unspecified atrial fibrillation Code(s): I48.91 - Unspecified atrial fibrillation Status: Chronic Assessment and Plan: Patient with AFib RVR with heart rate in the 150s to 170s, Cardizem infusion was started as blood pressures were in the 160s, blood pressures dropped requiring central line and Levophed. -remains in AFib, was in RVR overnight requiring an additional amiodarone bolus. Is on amiodarone at 1 mg/minute -patient also has a Watchman device which was placed and [facility] -appreciate cardiology evaluation, patient was cardioverted on 12/16 , by Cardiology, she did go into sinus rhythm briefly but degenerated back and to atrial fibrillation. Discussed with Cardiology, continue amiodarone at this time (4) Acute heart failure with preserved ejection fraction: Code(s): I50.31 - Acute diastolic (congestive) heart failure Status: Acute Assessment and Plan: Chest x-ray shows bilateral diffuse edema infiltrates -patient was given Lasix on admission -currently in shock, will hold Lasix for now, -will restart Lasix on blood pressure tolerates -echocardiogram 12/15/2020: EF of 30-35%, mild to moderate tricuspid regurg, no pulmonary hypertension (5) UTI (urinary tract infection): Code(s): N39.0 - Urinary tract infection, site not specified Status: Acute Assessment and Plan: UA with possible UTI, history of E coli UTI -urine cultures negative (6) Suspected COVID-19 virus infection: Code(s): Z20.822 - Contact with and (suspected) exposure to COVID-19 Status: Acute Assessment and Plan: Diffuse bilateral infiltrates, patient presented with shortness of breath, cough, fevers, weakness -SARS-CoV-2 PCR negative on 12/14/2020 -discontinue droplet, airborne, contact isolation/precautions (7) Abnormal glucose: Code(s): R73.09 - Other abnormal glucose Status: Acute Assessment and Plan: Patient is hyperglycemic -hemoglobin A1c on 10/10/2020 was 5.0 -continue Accu-Cheks and sliding scale insulin, added Levemir -hemoglobin A1c 6.3 this admission (8) Chronic kidney disease: Qualifiers: Chronic kidney disease stage: stage 3 (moderate) Qualified Code(s): N18.3 - Chronic kidney disease, stage 3 (moderate) Code(s): N18.9 - Chronic kidney disease, unspecified Status: Chronic Assessment and Plan: Patient with history of chronic kidney disease with creatinine between 1.1 and 1.2. -creatinine stable at this
[2020-12-17] MEDS: NOREPINEPHRINE 8 MG/D5W 250 ML 8 MG/250 ML BAG 16.88 MG IV CONT (16:17)
--- NOTE | 2020-12-17 16:22 | PM.PNCARD ---
Progress Note: A&P Assessment and Plan (1) Atrial fibrillation: Qualifiers: Atrial fibrillation type: unspecified Qualified Code(s): I48.91 - Unspecified atrial fibrillation Code(s): I48.91 - Unspecified atrial fibrillation Status: Chronic Assessment and Plan: History of AFib. Failed cardioversion yesterday. AFib rate is difficult to control despite a couple boluses of amiodarone so far. Will give another bolus and continue the 1 milligram/minute drip. Not anticoagulated but did have a Watchman left atrial appendage occlusion device implanted. (2) Acute exacerbation of CHF (congestive heart failure): Qualifiers: Heart failure type: unspecified Qualified Code(s): I50.9 - Heart failure, unspecified Code(s): I50.9 - Heart failure, unspecified Status: Acute Assessment and Plan: Hard to know how much of this problem is due to CHF versus pneumonia, suspect more the latter.. Lasix on hold due to hypotension and shock. (3) Cardiomyopathy: Code(s): I42.9 - Cardiomyopathy, unspecified Status: Acute Assessment and Plan: EF is 30-35%, possible takotsubo versus secondary to CAD. Will look for an old echo. Troponins negative. . (4) Respiratory failure: Code(s): J96.90 - Respiratory failure, unspecified, unspecified whether with hypoxia or hypercapnia Status: Acute Assessment and Plan: Respiratory failure and shock, on Levophed, Due to, primarily, a H flu pneumonia and to a degree systolic diastolic CHF. Requiring FiO2 of 100%. (5) Coronary artery disease: Qualifiers: Coronary Disease-Associated Artery/Lesion type: [place] artery [place] vs. transplanted heart: [place] heart Associated angina: without angina Qualified Code(s): I25.10 - Atherosclerotic heart disease of [place] coronary artery without angina pectoris Code(s): I25.10 - Atherosclerotic heart disease of [place] coronary artery without angina pectoris Status: Chronic Assessment and Plan: History of CAD, stable, troponins negative. Subjective Date/time seen: 12/17/20 16:22 Interval history: Follow-up for AFib RVR. History of Watchman device and CAD. Admitted with diastolic CHF, shock and respiratory failure secondary to presumed COVID pneumonia, intubated. Cardioversion by Dr. Mercado on 12/16/2019 to help with hemodynamic instability, but she reverted back to AFib RVR quickly. Date of service 12/17/2020: Patient still had AFib RVR yesterday and was given another bolus and amiodarone at 1 milligram/minute. Today her heart rate was better, running around 100 but this afternoon it increased to 140 -150 beats per minute. She remains intubated. H. influenza was cultured from her sputum. Requires 100% FiO2. She is now a DNR. Review of Systems Review of Systems: Narrative: Review of systems obtained from the patient's nurse and the chart ROS unobtainable: Yes unobtainable due to endotracheal tube, unobtainable due to medical condition and unobtainable due to mental status Constitutional: Constitutional: Reports no additional constitutional complaints ENT: Denies epistaxis Cardiovascular: Cardiovascular: Denies chest pain, Reports leg edema and Reports palpitations Respiratory: Respiratory: Reports no additional respiratory complaints and Denies hemoptysis Gastrointestinal: Gastrointestinal: Denies hematochezia Genitourinary: Genitourinary: Denies hematuria Musculoskeletal: Musculoskeletal: Reports no additional musculoskeletal complaints Integumentary/Breasts: Skin/Breast: Denies rash Neurologic: Reports confusion (Sedated) Exam Narrative: Exam Narrative: Critically ill-appearing white female on a ventilator sedated Const: General: comfortable and in distress (Mildl
[2020-12-17] MEDS: AMIODARONE 150 MG/D5W 100 ML 150 MG/100 ML BAG 600 MG IV CONT (16:33)
[2020-12-17 17:55] LABS: Glucose Point of Care 236 (65-105)
--- NOTE | 2020-12-17 18:01 | PM.IMPN ---
Progress Note: A&P Assessment and Plan (1) Acute respiratory failure: Qualifiers: Respiratory failure complication: hypoxia Qualified Code(s): J96.01 - Acute respiratory failure with hypoxia Code(s): J96.00 - Acute respiratory failure, unspecified whether with hypoxia or hypercapnia Status: Acute Assessment and Plan: Secondary to acute CHF. COVID-19 test negative. PNA being considered as well but no fevers and WBC normal. Patient's condition worsened on 12/15 requiring intubation. Sputum culture growing Haemophilus but BCx remain negative. Continue supportive care. Lasix as BP tolerates. Continue abx. (2) Shock: Code(s): R57.9 - Shock, unspecified Status: Acute Assessment and Plan: BP dropped when placing a central line on 12/15. Could be related to sedation +/- Diltiazem. Consider sepsis given the positive sputum. Levophed started after central line placed. BP remains soft. Wean Levophed as tolerated. Albumin started x 4 bags. (3) Acute heart failure with preserved ejection fraction: Code(s): I50.31 - Acute diastolic (congestive) heart failure Status: Acute Assessment and Plan: BNP 75928. CXR showing pulmonary edema. Continue Lasix IV as blood pressure tolerates. Monitor Is and Os, daily weights. Echocardiogram showing EF 30-35% with AK and DK frausto c/w ischemia vs Takotsubo. Mild valvular disease. (4) Atrial fibrillation: Qualifiers: Atrial fibrillation type: unspecified Qualified Code(s): I48.91 - Unspecified atrial fibrillation Code(s): I48.91 - Unspecified atrial fibrillation Status: Chronic Assessment and Plan: s/p watchman procedure. Diltiazem drip stopped. HR remains poorly controlled so Amio started. Not on anticoagulation on admission. (5) Abnormal glucose: Code(s): R73.09 - Other abnormal glucose Status: Acute Assessment and Plan: A1c 6.3. Glucose 389 on admission. Possibly stress response. Levemir started. Glucose reasonably well controlled. Continue accuchecks, SSI Coverage, hypoglycemic protocol. (6) Hypertension: Qualifiers: Hypertension type: essential hypertension Qualified Code(s): I10 - Essential (primary) hypertension Code(s): I10 - Essential (primary) hypertension Status: Chronic Assessment and Plan: As above. Anti-HTN medications on hold. (7) Chronic kidney disease: Qualifiers: Chronic kidney disease stage: stage 3 (moderate) Qualified Code(s): N18.3 - Chronic kidney disease, stage 3 (moderate) Code(s): N18.9 - Chronic kidney disease, unspecified Status: Chronic Assessment and Plan: Cr 1.1 on admission. Cr stable at 1.2. Monitor renal function. Avoid nephrotoxic agents. renally dose medications. (8) Coronary artery disease: Qualifiers: Associated angina: without angina Coronary Disease-Associated Artery/Lesion type: [place] artery [place] vs. transplanted heart: [place] heart Qualified Code(s): I25.10 - Atherosclerotic heart disease of [place] coronary artery without angina pectoris Code(s): I25.10 - Atherosclerotic heart disease of [place] coronary artery without angina pectoris Status: Chronic Assessment and Plan: Stable. Adjust medications as clinically able. (9) DVT prophylaxis: Code(s): Z29.9 - Encounter for prophylactic measures, unspecified Status: Chronic Assessment and Plan: Lovenox Subjective Date/time seen: 12/17/20 18:01 Interval history: Date of service 12/17 85 year old female with known history of chronic diastolic heart failure, atrial fibrillation s/p Watchman procedure, CKD stage III, and HTN who presented to the hospital with severe shortness of breath. Patient moved to the ICU on 12/15 and was intubated. Central line placed and when placed, she became hypotensive. [facility] [place] [facility]a
[2020-12-17] MEDS: FENTANYL 2,500MCG/NS250ML(*CRX 2,500 MCG/250 ML BAG 15 MCG IV CONT (20:03)
[2020-12-17 20:20] LABS: Glucose Point of Care 217 (65-105)
[2020-12-18] VITALS (36 sets, daily range): BP systolic 82–118; BP diastolic 43–69; PULSE 89–127; RESP 24; TEMP 36.9–38.2; O2SAT 90–100
[2020-12-18 00:07] LABS: Glucose Point of Care 195 (65-105)
[2020-12-18] MEDS: ALBUMIN HUMAN 25% 12.5 GM/50ML 50 ML IVPB ×2 (00:08→06:29)
[2020-12-18] MEDS: METOCLOPRAMIDE HCL INJ 10 MG/2 ML VIAL IV PUSH ×5 (00:08→23:18)
[2020-12-18] MEDS: AMIODARONE 360 MG/D5W 200 ML 360 MG/200 ML BAG 33.33 MG IV CONT ×5 (00:08→23:47)
[2020-12-18 04:41] LABS: Alveolar/Arterial O2 Gradient 403.8 mmHg; Base Excess ABG 0.2 mEq/l (+/-2.0); Carboxyhemoglobin 0.3 % THb (0-2.0); Fractional Inspired Oxygen 75 %; HCO3 ABG 24.8 mEq/l (22.0-26.0); Methemoglobin ABG 0.3 %THb (0-1.5); Oxygen Saturation ABG 96.9 % (95.0-100.0); Oxyhemoglobin 96.1 % THb (90.0-100.0); PCO2 ABG 39.7 mmHg (35.0-45.0); PO2 ABG 88.8 mmHg (80.0-100.0); PO2 FiO2 Ratio Arterial Blood 1.18 %; Reduced Hemoglobin 3.3 %THb (0-5.0); pH ABG 7.413 (7.350-7.450)
[2020-12-18 04:48] LABS: Arterial Blood Gas PEEP 10 cmH2O; Arterial Blood Gas Vent Mode ASSIST CONTROL; Arterial Blood Gas Ventilator rate 24 /MIN; Device VENTILATOR; Modified Allen's Test Unable to perform; Site Drawn RIGHT RADIAL
[2020-12-18 04:49] LABS: Arterial Blood Gas Tidal Volume 380 ml
[2020-12-18 06:29] LABS: Glucose Point of Care 148 (65-105)
[2020-12-18] MEDS: CENTRAL LINE FLUSH 10 ML IV PUSH ×3 (06:31→19:57)
[2020-12-18 06:33] LABS: Hematocrit 31.3 % (37.0-47.0); Hemoglobin 9.6 g/dL (12.0-15.0); Mean Corpuscular HGB Conc 30.7 g/dl (32-36); Mean Corpuscular Hemoglobin 27.5 pg (26-34); Mean Corpuscular Volume 89.7 fl (80-100); Mean Platelet Volume 9.8 fl (7.4-10.4); Platelet Count Result 150 k/mm3 (150-375); Red Blood Count 3.49 M/mm3 (4.2-5.4); Red Cell Distribution Width 18.4 % (11.5-14.5); White Blood Count 10.8 K/mm3 (4.5-10.0)
[2020-12-18 06:44] LABS: Lactic Acid Reflex 1.2 mmol/L (0.7-2.1)
[2020-12-18 06:49] LABS: Alanine Aminotransferase 16 U/L (4-35); Albumin Level 2.5 g/dL (3.5-5.1); Alkaline Phosphatase 263 U/L (38-126); Anion Gap 7 mmol/L (8-16); Aspartate Amino Transferase 21 U/L (14-36); Blood Urea Nitrogen 17 mg/dL (7-17); Carbon Dioxide 28 mmol/L (22-30); Chloride 98 mmol/L (98-107); Estimated CRCL calculation 36 ml/min; Estimated Glomerular Filt Rate 53; Glucose 166 mg/dL (65-105); Magnesium 1.9 mg/dL (1.6-2.3); Phosphorus 2.3 mg/dL (2.5-4.5); Potassium 2.8 mmol/L (3.4-5.0); Sodium 133 mmol/L (137-145)
[2020-12-18 08:07] LABS: Glucose Point of Care 165 (65-105)
[2020-12-18] MEDS: INSULIN DETEMIR 100 UNITS/ML 10 UNITS SUB-Q ×2 (08:07→20:14)
[2020-12-18] MEDS: ENOXAPARIN 40 MG/0.4 ML SYRINGE SUB-Q (08:10)
[2020-12-18] MEDS: PANTOPRAZOLE SODIUM IV 40 MG VIAL IV PUSH ×2 (08:11→19:56)
--- NOTE | 2020-12-18 08:40 | PM.IMPN ---
Progress Note: A&P Assessment and Plan (1) Acute respiratory failure: Qualifiers: Respiratory failure complication: hypoxia Qualified Code(s): J96.01 - Acute respiratory failure with hypoxia Code(s): J96.00 - Acute respiratory failure, unspecified whether with hypoxia or hypercapnia Status: Acute Assessment and Plan: Secondary to acute CHF. COVID-19 test negative. Patient's condition worsened on 12/15 requiring intubation. PNA being considered as well but no fevers and WBC normal. Sputum culture growing Haemophilus influenza (beta lactamase negative) but BCx remain negative. CXR reviewed today showing edema, PNA and/or ARDS. Continue supportive care. Lasix as BP tolerates. Continue abx. (2) Shock: Code(s): R57.9 - Shock, unspecified Status: Acute Assessment and Plan: BP dropped when placing a central line on 12/15. Could be related to sedation +/- Diltiazem. Consider sepsis given the positive sputum. Levophed started after central line placed. BP remains soft. Able to wean Levophed; continue to wean as tolerated. Continue Albumin (x 4 bags). (3) Acute heart failure with preserved ejection fraction: Code(s): I50.31 - Acute diastolic (congestive) heart failure Status: Acute Assessment and Plan: BNP 82286. CXR showing pulmonary edema. Echocardiogram showing EF 30-35% with AK and DK frausto c/w ischemia vs Takotsubo. Mild valvular disease. Resume Lasix IV as blood pressure tolerates. Monitor Is and Os, daily weights. (4) Atrial fibrillation: Qualifiers: Atrial fibrillation type: unspecified Qualified Code(s): I48.91 - Unspecified atrial fibrillation Code(s): I48.91 - Unspecified atrial fibrillation Status: Chronic Assessment and Plan: s/p Watchman procedure. Diltiazem drip stopped. HR remains poorly controlled so Amio started. HR better controlled now. Not on anticoagulation on admission. (5) Abnormal glucose: Code(s): R73.09 - Other abnormal glucose Status: Acute Assessment and Plan: A1c 6.3. Glucose 389 on admission. Possibly stress response. Levemir started. Glucose reasonably well controlled. Continue accuchecks, SSI Coverage, hypoglycemic protocol. (6) Hypertension: Qualifiers: Hypertension type: essential hypertension Qualified Code(s): I10 - Essential (primary) hypertension Code(s): I10 - Essential (primary) hypertension Status: Chronic Assessment and Plan: As above. Anti-HTN medications on hold. (7) Chronic kidney disease: Qualifiers: Chronic kidney disease stage: stage 3 (moderate) Qualified Code(s): N18.3 - Chronic kidney disease, stage 3 (moderate) Code(s): N18.9 - Chronic kidney disease, unspecified Status: Chronic Assessment and Plan: Cr 1.1 on admission. Cr better at 1.0. Monitor renal function. Avoid nephrotoxic agents. renally dose medications. (8) Coronary artery disease: Qualifiers: Associated angina: without angina Coronary Disease-Associated Artery/Lesion type: [place] artery [place] vs. transplanted heart: [place] heart Qualified Code(s): I25.10 - Atherosclerotic heart disease of [place] coronary artery without angina pectoris Code(s): I25.10 - Atherosclerotic heart disease of [place] coronary artery without angina pectoris Status: Chronic Assessment and Plan: Stable. Adjust medications as clinically able. (9) DVT prophylaxis: Code(s): Z29.9 - Encounter for prophylactic measures, unspecified Status: Chronic Assessment and Plan: Lovenox Subjective Date/time seen: 12/18/20 08:40 Interval history: Date of service 12/18 85 year old female with known history of chronic diastolic heart failure, atrial fibrillation s/p Watchman procedure, CKD stage III, and HTN who presented to the hospital with severe shortness of simona
--- NOTE | 2020-12-18 10:45 | PM.PNCARD ---
Progress Note: A&P Assessment and Plan (1) Atrial fibrillation: Qualifiers: Atrial fibrillation type: unspecified Qualified Code(s): I48.91 - Unspecified atrial fibrillation Code(s): I48.91 - Unspecified atrial fibrillation Status: Chronic Assessment and Plan: History of AFib. Failed cardioversion 12/16/2020. AFib rate is difficult to control despite several boluses of amiodarone so far, now reasonable on amiodarone 1 milligram/minute drip. Not anticoagulated but did have a Watchman left atrial appendage occlusion device implanted. (2) Acute exacerbation of CHF (congestive heart failure): Qualifiers: Heart failure type: unspecified Qualified Code(s): I50.9 - Heart failure, unspecified Code(s): I50.9 - Heart failure, unspecified Status: Acute Assessment and Plan: Hard to know how much of this problem is due to CHF versus pneumonia. Getting a lot of fluids in, 4 L positive since admission, and CXR worse. Lasix on hold due to hypotension and shock. Try some Lasix through NGT 40 mg BID and see how BP tolerates it. (3) Cardiomyopathy: Code(s): I42.9 - Cardiomyopathy, unspecified Status: Acute Assessment and Plan: EF is 30-35%, possible Takotsubo versus secondary to CAD. Can't find any old echos. Troponins negative. . (4) Respiratory failure: Code(s): J96.90 - Respiratory failure, unspecified, unspecified whether with hypoxia or hypercapnia Status: Acute Assessment and Plan: Respiratory failure and shock, on Levophed, Due to, primarily, a H flu pneumonia and to a degree systolic diastolic CHF. Requiring FiO2 of 75 %, improved. (5) Coronary artery disease: Qualifiers: Coronary Disease-Associated Artery/Lesion type: [place] artery [place] vs. transplanted heart: [place] heart Associated angina: without angina Qualified Code(s): I25.10 - Atherosclerotic heart disease of [place] coronary artery without angina pectoris Code(s): I25.10 - Atherosclerotic heart disease of [place] coronary artery without angina pectoris Status: Chronic Assessment and Plan: History of CAD, stable, troponins negative. Subjective Date/time seen: 12/18/20 10:45 Interval history: Follow-up for AFib RVR. History of Watchman device and CAD, pacemaker. Admitted with diastolic CHF, shock and respiratory failure, intubated. COVID negative. Cardioversion by Dr. Mercado on 12/16/2019 to help with hemodynamic instability, but she reverted back to AFib RVR quickly. Date of service 12/17/2020: Patient still had AFib RVR yesterday and was given another bolus and amiodarone at 1 milligram/minute. Today her heart rate was better, running around 100 but this afternoon it increased to 140 -150 beats per minute. She remains intubated. On Levophed. H. influenza was cultured from her sputum. Requires 100% FiO2. She is now a DNR. Date of service 12/18/2020: Remains on vent, Levophed at 4 mcg w/ soft BP, IV amio at 1 g/min, sedation, tube feedings, antibiotics. A fib rate usually 100-120, occ higher. Uneventful night. Getting a lot of fluids in, 4 L positive since admission, and CXR worse. Review of Systems Review of Systems: Narrative: ROS obtained fr the chart and pt's RN ROS unobtainable: Yes unobtainable due to endotracheal tube and unobtainable due to mental status Constitutional: Constitutional: Reports no additional constitutional complaints ENT: Denies epistaxis Cardiovascular: Cardiovascular: Denies chest pain, Reports leg edema and Reports palpitations Respiratory: Respiratory: Reports no additional respiratory complaints and Denies hemoptysis Gastrointestinal: Gastrointestinal: Denies hematochezia Genitourinary: Genitourinary: Denies hematuria Musculos[place]let
[2020-12-18] MEDS: INSULIN ASPART (*BKC) 100 UNITS/ML SUB-Q ×2 (12:22→23:17)
[2020-12-18 12:30] LABS: Glucose Point of Care 208 (65-105)
[2020-12-18] MEDS: NOREPINEPHRINE 8 MG/D5W 250 ML 8 MG/250 ML BAG 11.25 MG IV CONT (13:15)
--- NOTE | 2020-12-18 14:03 | WPDINTPN ---
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 -low tidal volume strategy, on peep of 12, 40% FiO2, will decrease PEEP to 10 -SARS-CoV-2 PCR NEGATIVE -continue ceftriaxone and azithromycin (initiated on 12/15/2020) -patient also received Lasix in the ER -sedated with fentanyl and Versed infusion start weaning sedation (2) Shock: Code(s): R57.9 - Shock, unspecified Status: Acute Assessment and Plan: Patient was hypertensive, AFib RVR, patient was given Cardizem infusion and dropped her blood pressures. -patient also given beta-blockers, could also be related to sedation and positive pressure ventilation -Continue Levophed, maintain mean arterial pressures greater than 65 mmHg -continue antibiotics as above -urine cultures negative -sputum cultures grew Hemophilus influenzae -blood cultures are negative so far x2 -central line placed in left IJ on 12/15/2020 (3) Atrial fibrillation: Qualifiers: Atrial fibrillation type: unspecified Qualified Code(s): I48.91 - Unspecified atrial fibrillation Code(s): I48.91 - Unspecified atrial fibrillation Status: Chronic Assessment and Plan: Patient with AFib RVR with heart rate in the 150s to 170s, Cardizem infusion was started as blood pressures were in the 160s, blood pressures dropped requiring central line and Levophed. -remains in AFib, was in RVR overnight requiring an additional amiodarone bolus. Is on amiodarone at 1 mg/minute -patient also has a Watchman device which was placed and [facility] -appreciate cardiology evaluation, patient was cardioverted on 12/16 , by Cardiology, she did go into sinus rhythm briefly but degenerated back and to atrial fibrillation. Discussed with Cardiology, continue amiodarone at this time (4) Acute heart failure with preserved ejection fraction: Code(s): I50.31 - Acute diastolic (congestive) heart failure Status: Acute Assessment and Plan: Chest x-ray shows bilateral diffuse edema infiltrates -patient was given Lasix on admission -currently in shock, will hold Lasix for now, -will restart Lasix on blood pressure tolerates -echocardiogram 12/15/2020: EF of 30-35%, mild to moderate tricuspid regurg, no pulmonary hypertension (5) UTI (urinary tract infection): Code(s): N39.0 - Urinary tract infection, site not specified Status: Acute Assessment and Plan: UA with possible UTI, history of E coli UTI -urine cultures negative (6) Suspected COVID-19 virus infection: Code(s): Z20.822 - Contact with and (suspected) exposure to COVID-19 Status: Acute Assessment and Plan: Diffuse bilateral infiltrates, patient presented with shortness of breath, cough, fevers, weakness -SARS-CoV-2 PCR negative on 12/14/2020 -discontinue droplet, airborne, contact isolation/precautions (7) Abnormal glucose: Code(s): R73.09 - Other abnormal glucose Status: Acute Assessment and Plan: Patient is hyperglycemic -hemoglobin A1c on 10/10/2020 was 5.0 -continue Accu-Cheks and sliding scale insulin, added Levemir -hemoglobin A1c 6.3 this admission (8) Chronic kidney disease: Qualifiers: Chronic kidney disease stage: stage 3 (moderate) Qualified Code(s): N18.3 - Chronic kidney disease, stage 3 (moderate) Code(s): N18.9 - Chronic kidney disease, unspecified Status: Chronic Assessment and Plan: Patient with history of chronic kidney disease with creatinine between 1.1 and 1.2. -creatinine
[2020-12-18] MEDS: FENTANYL 2,500MCG/NS250ML(*CRX 2,500 MCG/250 ML BAG 12.5 MCG IV CONT (16:00)
[2020-12-18] MEDS: FUROSEMIDE 40 MG TABLET FEED TUBE (17:59)
[2020-12-18 18:08] LABS: Glucose Point of Care 145 (65-105)
[2020-12-18 20:17] LABS: Glucose Point of Care 163 (65-105)
[2020-12-18 23:15] LABS: Glucose Point of Care 209 (65-105)
[2020-12-19] VITALS (44 sets, daily range): BP systolic 47–112; BP diastolic 35–79; PULSE 83–123; RESP 24; TEMP 36.7–37.3; O2SAT 91–100
[2020-12-19 05:08] LABS: Alveolar/Arterial O2 Gradient 298.7 mmHg; Base Excess ABG -1.1 mEq/l (+/-2.0); Carboxyhemoglobin 0.3 % THb (0-2.0); Fractional Inspired Oxygen 60 %; Methemoglobin ABG 0.2 %THb (0-1.5); Oxygen Content ABG 15.5 %vol (16.0-22.0); Oxygen Saturation ABG 97.6 % (95.0-100.0); Oxyhemoglobin 96.7 % THb (90.0-100.0); PCO2 ABG 31.6 mmHg (35.0-45.0); PO2 ABG 94.3 mmHg (80.0-100.0); PO2 FiO2 Ratio Arterial Blood 1.57 %; Reduced Hemoglobin 2.8 %THb (0-5.0); Site Drawn LEFT RADIAL; Total Hemoglobin 11.3 g/dL (12.0-18.0); pH ABG 7.461 (7.350-7.450)
[2020-12-19 05:09] LABS: Arterial Blood Gas PEEP 10 cmH2O; Arterial Blood Gas Tidal Volume 380 ml; Arterial Blood Gas Vent Mode ASSIST CONTROL; Arterial Blood Gas Ventilator rate 24 /MIN; Device VENTILATOR
[2020-12-19] MEDS: NOREPINEPHRINE 8 MG/D5W 250 ML 8 MG/250 ML BAG 13.13 MG IV CONT (05:16)
[2020-12-19] MEDS: CENTRAL LINE FLUSH 10 ML IV PUSH ×3 (05:17→20:02)
[2020-12-19] MEDS: METOCLOPRAMIDE HCL INJ 10 MG/2 ML VIAL IV PUSH ×3 (05:19→17:27)
[2020-12-19] MEDS: AMIODARONE 360 MG/D5W 200 ML 360 MG/200 ML BAG 33.33 MG IV CONT ×4 (05:29→22:06)
[2020-12-19 05:31] LABS: Hematocrit 32.6 % (37.0-47.0); Hemoglobin 10.2 g/dL (12.0-15.0); Mean Corpuscular HGB Conc 31.3 g/dl (32-36); Mean Corpuscular Volume 89.6 fl (80-100); Mean Platelet Volume 10.4 fl (7.4-10.4); Platelet Count Result 160 k/mm3 (150-375); Red Blood Count 3.64 M/mm3 (4.2-5.4); Red Cell Distribution Width 18.5 % (11.5-14.5); White Blood Count 12.2 K/mm3 (4.5-10.0)
[2020-12-19 05:40] LABS: Glucose Point of Care 187 (65-105)
[2020-12-19 05:45] LABS: Lactic Acid Reflex 1.2 mmol/L (0.7-2.1)
[2020-12-19 05:47] LABS: Alanine Aminotransferase 23 U/L (4-35); Albumin Level 2.7 g/dL (3.5-5.1); Alkaline Phosphatase 396 U/L (38-126); Anion Gap 4 mmol/L (8-16); Aspartate Amino Transferase 43 U/L (14-36); Bilirubin,Total 0.9 mg/dL (0.2-1.3); Blood Urea Nitrogen 20 mg/dL (7-17); Calcium 7.5 mg/dL (8.4-10.2); Carbon Dioxide 29 mmol/L (22-30); Chloride 98 mmol/L (98-107); Estimated CRCL calculation 28 ml/min; Estimated Glomerular Filt Rate 39; Glucose 185 mg/dL (65-105); Phosphorus 2.5 mg/dL (2.5-4.5); Potassium 3.3 mmol/L (3.4-5.0); Sodium 131 mmol/L (137-145)
[2020-12-19] MEDS: FUROSEMIDE 40 MG TABLET FEED TUBE (08:00)
[2020-12-19] MEDS: PANTOPRAZOLE SODIUM IV 40 MG VIAL IV PUSH ×2 (08:00→20:02)
[2020-12-19] MEDS: ENOXAPARIN 40 MG/0.4 ML SYRINGE SUB-Q (08:00)
[2020-12-19] MEDS: INSULIN DETEMIR 100 UNITS/ML 10 UNITS SUB-Q ×2 (08:18→20:01)
[2020-12-19 08:20] LABS: Glucose Point of Care 203 (65-105)
--- NOTE | 2020-12-19 09:25 | PM.IMPN ---
Progress Note: A&P Assessment and Plan (1) Acute respiratory failure: Qualifiers: Respiratory failure complication: hypoxia Qualified Code(s): J96.01 - Acute respiratory failure with hypoxia Code(s): J96.00 - Acute respiratory failure, unspecified whether with hypoxia or hypercapnia Status: Acute Assessment and Plan: Secondary to acute CHF. COVID-19 test negative. Patient's condition worsened on 12/15 requiring intubation. PNA being considered as well but no fevers and WBC normal. Sputum culture growing Haemophilus influenza (beta lactamase negative) but BCx remain negative. CXR reviewed today showing diffuse airspace disease. Continue supportive care. Continue abx. Lasix started yesterday but will hold given that she is HoTN this morning. (2) Shock: Code(s): R57.9 - Shock, unspecified Status: Acute Assessment and Plan: BP dropped when placing a central line on 12/15. Could be related to sedation +/- Diltiazem. Consider sepsis given the positive sputum. Levophed started after central line placed. BP remains soft and remains on Levophed at 14mcg; continue to wean as tolerated. Albumin (x 4 bags) given. (3) Pneumonia: Code(s): J18.9 - Pneumonia, unspecified organism Status: Acute Assessment and Plan: As above. Sputum growing Haemophilus influenza and CXR could be consistent with PNA. Continue IV abx. (4) Acute heart failure with preserved ejection fraction: Code(s): I50.31 - Acute diastolic (congestive) heart failure Status: Acute Assessment and Plan: BNP 99849. CXR on admission showing pulmonary edema. Echo showing EF 30-35% with AK and DK frausto c/w ischemia vs Takotsubo. Mild valvular disease. Lasix resumed yesterday but will hold given the HoTN. Monitor Is and Os, daily weights. (5) Atrial fibrillation: Qualifiers: Atrial fibrillation type: unspecified Qualified Code(s): I48.91 - Unspecified atrial fibrillation Code(s): I48.91 - Unspecified atrial fibrillation Status: Chronic Assessment and Plan: s/p Watchman procedure. Diltiazem drip stopped. HR remains poorly controlled so Amio started. HR better controlled now. Not on anticoagulation on admission except full ASA daily. (6) Abnormal glucose: Code(s): R73.09 - Other abnormal glucose Status: Acute Assessment and Plan: A1c 6.3. Glucose 389 on admission. Possibly stress response. Levemir started. Glucose reviewed on 12/19 and glucose reasonably well controlled. Continue accuchecks, SSI Coverage, hypoglycemic protocol. (7) Hypertension: Qualifiers: Hypertension type: essential hypertension Qualified Code(s): I10 - Essential (primary) hypertension Code(s): I10 - Essential (primary) hypertension Status: Chronic Assessment and Plan: As above. Anti-HTN medications on hold. (8) Chronic kidney disease: Qualifiers: Chronic kidney disease stage: stage 3 (moderate) Qualified Code(s): N18.3 - Chronic kidney disease, stage 3 (moderate) Code(s): N18.9 - Chronic kidney disease, unspecified Status: Chronic Assessment and Plan: Cr 1.1 on admission. Cr worse at 1.3 today. Monitor renal function. Avoid nephrotoxic agents. Renally dose medications. (9) Coronary artery disease: Qualifiers: Associated angina: without angina Coronary Disease-Associated Artery/Lesion type: [place] artery [place] vs. transplanted heart: [place] heart Qualified Code(s): I25.10 - Atherosclerotic heart disease of [place] coronary artery without angina pectoris Code(s): I25.10 - Atherosclerotic heart disease of [place] coronary artery without angina pectoris Status: Chronic Assessment and Plan: Stable. Adjust medications as clinically able. (10) DVT prophylaxis: Code(s): Z29.9 - Encounter for prophylactic measures, unspeci
[2020-12-19 11:11] LABS: Glucose Point of Care 243 (65-105)
[2020-12-19] MEDS: INSULIN ASPART (*BKC) 100 UNITS/ML SUB-Q (11:11)
--- NOTE | 2020-12-19 12:32 | PM.PNCARD ---
Progress Note: A&P Assessment and Plan (1) Atrial fibrillation: Qualifiers: Atrial fibrillation type: unspecified Qualified Code(s): I48.91 - Unspecified atrial fibrillation Code(s): I48.91 - Unspecified atrial fibrillation Status: Chronic Assessment and Plan: History of AFib. Failed cardioversion 12/16/2020. AFib rate is difficult to control despite several boluses of amiodarone so far, now reasonable on amiodarone 1 milligram/minute drip. Not anticoagulated but did have a Watchman left atrial appendage occlusion device implanted. (2) Acute exacerbation of CHF (congestive heart failure): Qualifiers: Heart failure type: unspecified Qualified Code(s): I50.9 - Heart failure, unspecified Code(s): I50.9 - Heart failure, unspecified Status: Acute Assessment and Plan: Hard to know how much of this problem is due to CHF versus pneumonia. Getting a lot of fluids in, 7-8 L positive since admission, and CXR worse. (3) Cardiomyopathy: Code(s): I42.9 - Cardiomyopathy, unspecified Status: Acute Assessment and Plan: EF is 30-35%, possible Takotsubo versus secondary to CAD. Troponins negative. . (4) Respiratory failure: Code(s): J96.90 - Respiratory failure, unspecified, unspecified whether with hypoxia or hypercapnia Status: Acute Assessment and Plan: Respiratory failure and shock, on Levophed, Due to, primarily, a H flu pneumonia and to a degree systolic diastolic CHF. furosemide 40 mg IV x1 (5) Coronary artery disease: Qualifiers: Coronary Disease-Associated Artery/Lesion type: n[place] artery [place] vs. transplanted heart: n[place]ki heart Associated angina: without angina Qualified Code(s): I25.10 - Atherosclerotic heart disease of nikolski coronary artery without angina pectoris Code(s): I25.10 - Atherosclerotic heart disease of nikolski coronary artery without angina pectoris Status: Chronic Assessment and Plan: History of CAD, stable, troponins negative. Subjective Date/time seen: 12/19/20 12:32 Interval history: Follow-up for AFib RVR. History of Watchman device and CAD, pacemaker. Admitted with diastolic CHF, shock and respiratory failure, intubated. COVID negative. Cardioversion by Dr. Mercado on 12/16/2019 to help with hemodynamic instability, but she reverted back to AFib RVR quickly. Date of service 12/17/2020: Patient still had AFib RVR yesterday and was given another bolus and amiodarone at 1 milligram/minute. Today her heart rate was better, running around 100 but this afternoon it increased to 140 -150 beats per minute. She remains intubated. On Levophed. H. influenza was cultured from her sputum. Requires 100% FiO2. She is now a DNR. Date of service 12/18/2020: Remains on vent, Levophed at 4 mcg w/ soft BP, IV amio at 1 g/min, sedation, tube feedings, antibiotics. A fib rate usually 100-120, occ higher. Uneventful night. Getting a lot of fluids in, 4 L positive since admission, and CXR worse. Date of service 12/19/2020: Remains ventilated. Heart rate is around 100. high residual tube feeds Review of Systems Review of Systems: ROS unobtainable: Yes unobtainable due to endotracheal tube and unobtainable due to mental status Constitutional: Constitutional: Reports no additional constitutional complaints ENT: Denies epistaxis Cardiovascular: Cardiovascular: Denies chest pain, Reports leg edema and Reports palpitations Respiratory: Respiratory: Reports no additional respiratory complaints and Denies hemoptysis Gastrointestinal: Gastrointestinal: Denies hematochezia Genitourinary: Genitourinary: Denies hematuria Musculoskeletal: Musculoskeletal: Reports no additional musculoskeletal complaints Integumentary
--- NOTE | 2020-12-19 12:35 | WPDINTPN ---
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 -low tidal volume strategy, on peep of 10, 60% FiO2, wean FiO2 as tolerated -SARS-CoV-2 PCR NEGATIVE -continue ceftriaxone and azithromycin (initiated on 12/15/2020) -sedated with fentanyl and Versed infusion (2) Shock: Code(s): R57.9 - Shock, unspecified Status: Acute Assessment and Plan: Patient was hypertensive, AFib RVR, patient was given Cardizem infusion and dropped her blood pressures. -patient also given beta-blockers, could also be related to sedation and positive pressure ventilation -Continue Levophed, maintain mean arterial pressures greater than 65 mmHg -continue antibiotics as above -urine cultures negative -sputum cultures grew Hemophilus influenzae -blood cultures are negative so far x2 -central line placed in left IJ on 12/15/2020 (3) Atrial fibrillation: Qualifiers: Atrial fibrillation type: unspecified Qualified Code(s): I48.91 - Unspecified atrial fibrillation Code(s): I48.91 - Unspecified atrial fibrillation Status: Chronic Assessment and Plan: Patient with AFib RVR with heart rate in the 150s to 170s, Cardizem infusion was started as blood pressures were in the 160s, blood pressures dropped requiring central line and Levophed. -remains in AFib, was in RVR overnight requiring an additional amiodarone bolus. Is on amiodarone at 1 mg/minute -patient also has a Watchman device which was placed and [facility] -appreciate cardiology evaluation, patient was cardioverted on 12/16 , by Cardiology, she did go into sinus rhythm briefly but degenerated back and to atrial fibrillation. Discussed with Cardiology, continue amiodarone at this time (4) Acute heart failure with preserved ejection fraction: Code(s): I50.31 - Acute diastolic (congestive) heart failure Status: Acute Assessment and Plan: Chest x-ray shows bilateral diffuse edema infiltrates -patient was given Lasix on admission -currently in shock, will hold Lasix for now, -will restart Lasix on blood pressure tolerates -echocardiogram 12/15/2020: EF of 30-35%, mild to moderate tricuspid regurg, no pulmonary hypertension, possible Takotsubo versus secondary to CAD (5) UTI (urinary tract infection): Code(s): N39.0 - Urinary tract infection, site not specified Status: Acute Assessment and Plan: UA with possible UTI, history of E coli UTI -urine cultures negative (6) Suspected COVID-19 virus infection: Code(s): Z20.822 - Contact with and (suspected) exposure to COVID-19 Status: Acute Assessment and Plan: Diffuse bilateral infiltrates, patient presented with shortness of breath, cough, fevers, weakness -SARS-CoV-2 PCR negative on 12/14/2020 -discontinue droplet, airborne, contact isolation/precautions (7) Abnormal glucose: Code(s): R73.09 - Other abnormal glucose Status: Acute Assessment and Plan: Patient is hyperglycemic -hemoglobin A1c on 10/10/2020 was 5.0 -continue Accu-Cheks and sliding scale insulin, added Levemir -hemoglobin A1c 6.3 this admission (8) Chronic kidney disease: Qualifiers: Chronic kidney disease stage: stage 3 (moderate) Qualified Code(s): N18.3 - Chronic kidney disease, stage 3 (moderate) Code(s): N18.9 - Chronic kidney disease, unspecified Status: Chronic Assessment and Plan: Patient with history of chronic kidney disease with creatinine between 1.1 and 1.2. -creatinine stable at this time
--- NOTE | 2020-12-19 12:51 | PCDIET ---
ICU Rounding Note: Tube feedings held for 350mL residual with plan to resume later today. Last recorded weight is 80.5kg which is increased from last review. +I/O. Decreased urine output noted. Bowel Motility: No documented BM. New order for Miralax prn. Labs Reviewed: Hgb (10.2), Hct (32.6), Glu (185), BUN (20), Cr (1.3), K (3.3), Na (131), Alb (2.7), Radha Ca (8.54) Meds Noted: Albuterol, Azithromycin, Rocephin, Fentanyl, Novolog, Levemir, Reglan, Versed, Levophed, Protonix, KCl, Lasix Additional Notes: No documented skin breakdown. Following daily in ICU rounds. Assessing/reassessing every Saturday/Saturday.
[2020-12-19] MEDS: FENTANYL 2,500MCG/NS250ML(*CRX 2,500 MCG/250 ML BAG 7.5 MCG IV CONT (16:26)
[2020-12-19] MEDS: NOREPINEPHRINE 8 MG/D5W 250 ML 8 MG/250 ML BAG 26.25 MG IV CONT (16:32)
[2020-12-19 17:09] LABS: Glucose Point of Care 196 (65-105)
[2020-12-20] VITALS (40 sets, daily range): BP systolic 85–116; BP diastolic 48–68; PULSE 87–124; RESP 20–24; TEMP 36.6–37.2; O2SAT 92–96
[2020-12-20] MEDS: INSULIN ASPART (*BKC) 100 UNITS/ML SUB-Q ×2 (00:06→11:48)
[2020-12-20] MEDS: METOCLOPRAMIDE HCL INJ 10 MG/2 ML VIAL IV PUSH ×5 (00:08→23:52)
[2020-12-20] MEDS: NOREPINEPHRINE 8 MG/D5W 250 ML 8 MG/250 ML BAG 22.5 MG IV CONT ×2 (02:20→14:33)
[2020-12-20 02:32] LABS: Glucose Point of Care 201 (65-105)
[2020-12-20] MEDS: AMIODARONE 360 MG/D5W 200 ML 360 MG/200 ML BAG 33.33 MG IV CONT ×4 (03:49→20:04)
[2020-12-20 03:59] LABS: Alveolar/Arterial O2 Gradient 187.3 mmHg; Base Excess ABG -0.1 mEq/l (+/-2.0); Carboxyhemoglobin 1.1 % THb (0-2.0); Fractional Inspired Oxygen 40 %; HCO3 ABG 23.3 mEq/l (22.0-26.0); Methemoglobin ABG 0.3 %THb (0-1.5); Oxygen Content ABG 14.6 %vol (16.0-22.0); Oxygen Saturation ABG 92.1 % (95.0-100.0); Oxyhemoglobin 90.4 % THb (90.0-100.0); PCO2 ABG 33.8 mmHg (35.0-45.0); PO2 FiO2 Ratio Arterial Blood 1.48 %; Reduced Hemoglobin 8.2 %THb (0-5.0); Total Hemoglobin 11.5 g/dL (12.0-18.0); pH ABG 7.457 (7.350-7.450)
[2020-12-20 04:00] LABS: Arterial Blood Gas PEEP 10 cmH2O; Arterial Blood Gas Tidal Volume 380 ml; Arterial Blood Gas Vent Mode CMV; Arterial Blood Gas Ventilator rate 24 /MIN; Device VENTILATOR; Modified Allen's Test Pass; Site Drawn LEFT RADIAL
[2020-12-20 04:25] LABS: Hematocrit 32.8 % (37.0-47.0); Hemoglobin 10.4 g/dL (12.0-15.0); Mean Corpuscular HGB Conc 31.7 g/dl (32-36); Mean Corpuscular Hemoglobin 27.7 pg (26-34); Mean Corpuscular Volume 87.2 fl (80-100); Platelet Count Result 179 k/mm3 (150-375); Red Blood Count 3.76 M/mm3 (4.2-5.4); Red Cell Distribution Width 18.6 % (11.5-14.5); White Blood Count 10.3 K/mm3 (4.5-10.0)
[2020-12-20 04:41] LABS: Lactic Acid Reflex 1.1 mmol/L (0.7-2.1)
[2020-12-20 04:42] LABS: Alanine Aminotransferase 31 U/L (4-35); Albumin Level 2.7 g/dL (3.5-5.1); Alkaline Phosphatase 446 U/L (38-126); Anion Gap 6 mmol/L (8-16); Aspartate Amino Transferase 56 U/L (14-36); Bilirubin,Total 0.8 mg/dL (0.2-1.3); Blood Urea Nitrogen 22 mg/dL (7-17); Calcium 7.6 mg/dL (8.4-10.2); Carbon Dioxide 29 mmol/L (22-30); Chloride 99 mmol/L (98-107); Estimated CRCL calculation 29 ml/min; Estimated Glomerular Filt Rate 39; Glucose 159 mg/dL (65-105); Magnesium 2.2 mg/dL (1.6-2.3); Phosphorus 2.2 mg/dL (2.5-4.5); Potassium 3.5 mmol/L (3.4-5.0); Sodium 134 mmol/L (137-145)
[2020-12-20] MEDS: CENTRAL LINE FLUSH 10 ML IV PUSH ×3 (05:06→20:03)
[2020-12-20] MEDS: ENOXAPARIN 40 MG/0.4 ML SYRINGE SUB-Q (08:08)
[2020-12-20] MEDS: PANTOPRAZOLE SODIUM IV 40 MG VIAL IV PUSH ×2 (08:08→20:03)
[2020-12-20] MEDS: INSULIN DETEMIR 100 UNITS/ML 10 UNITS SUB-Q ×2 (08:25→20:00)
--- NOTE | 2020-12-20 10:21 | P.CDI_ITS ---
CDI Query Clarification Request -Shock has been documented - Could be related to sedation +/- Diltiazem. Consider sepsis given positive sp utum . Please further specify type of shock if possible: * Septic * Hypovolemic * Cardiogenic * Other * Unable to determine
--- NOTE | 2020-12-20 10:21 | WPDCDIQUERY2 ---
CDI Query Clarification Request -Shock has been documented - Could be related to sedation +/- Diltiazem. Consider sepsis given positive sputum . Please further specify type of shock if possible: Septic Hypovolemic Cardiogenic Other Unable to determine
--- NOTE | 2020-12-20 11:29 | PCDIET ---
Nutrition Follow-Up Complete: Nutrition Diagnosis: Inadequate oral intake related to oral intubation as evidenced by NPO status. Nutrition Goal: Patient to meet estimated nutritional needs. Goal met. Patient now receiving Glucerna 1.2 at 45mL/hr goal rate with 30mL water flush every 4 hours. Noted tube feedings held overnight for 450mL residual. Last recorded weight is 81.8 kg which is increased from last review. +I/O. Bowel Motility: Reported smear BM on 12/19/20. Discussed during rounds. adding Miralax today. Labs Reviewed: Hgb (10.4), Hct (32.8), Glu (159), BUN (22), Cr (1.3), Na (134), Alb (2.7), Radha Ca (8.64) Meds Noted: Miralax, Albuterol, Zithromax, Rocephin, Fentanyl, Novolog, Levemir, KCl, Reglan, Versed, Levophed, Protonix Additional Notes: No documented skin breakdown. Will continue to monitor with same goal. Nutrition Monitoring and Evaluation: Follow up every Saturday/Saturday.
--- NOTE | 2020-12-20 11:46 | P.PNINT_ITS ---
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 -low tidal volume strategy, on peep of 10, 60% FiO2, wean FiO2 as tolerated -SARS-CoV-2 PCR NEGATIVE -continue ceftriaxone and azithromycin (initiated on 12/15/2020) -sedated with fentanyl and Versed infusion (2) Shock: Code(s): R57.9 - Shock, unspecified Status: Acute Assessment and Plan: -likely septic shock, hypotension could also be related to positive pressure ventilation, sedation medications, atrial fibrillation RVR -Continue Levophed, maintain mean arterial pressures greater than 65 mmHg -continue antibiotics as above -urine cultures negative -sputum cultures grew Hemophilus influenzae -blood cultures are negative so far x2 -central line placed in left IJ on 12/15/2020 (3) Atrial fibrillation: Qualifiers: Atrial fibrillation type: unspecified Qualified Code(s): I48.91 - Unspecified atrial fibrillation Code(s): I48.91 - Unspecified atrial fibrillation Status: Chronic Assessment and Plan: Patient with AFib RVR with heart rate in the 150s to 170s, Cardizem infusion was started as blood pressures were in the 160s, blood pressures dropped requiring central line and Levophed. -remains in AFib, was in RVR overnight requiring an additional amiodarone bolus. Is on amiodarone at 1 mg/minute -patient also has a Watchman device which was placed and [facility] -appreciate cardiology evaluation, patient was cardioverted on 12/16 , by Cardiology, she did go into sinus rhythm briefly but degenerated back and to atrial fibrillation. Discussed with Cardiology, continue amiodarone at this time (4) Acute heart failure with preserved ejection fraction: Code(s): I50.31 - Acute diastolic (congestive) heart failure Status: Acute Assessment and Plan: Chest x-ray shows bilateral diffuse edema infiltrates -patient was given Lasix on admission -currently in shock, will hold Lasix for now, -will restart Lasix on blood pressure tolerates -echocardiogram 12/15/2020: EF of 30-35%, mild to moderate tricuspid regurg, no pulmonary hypertension, possible Takotsubo versus secondary to CAD (5) UTI (urinary tract infection): Code(s): N39.0 - Urinary tract infection, site not specified Status: Acute Assessment and Plan: UA with possible UTI, history of E coli UTI -urine cultures negative (6) Suspected COVID-19 virus infection: Code(s): Z20.822 - Contact with and (suspected) exposure to COVID-19 Status: Acute Assessment and Plan: Diffuse bilateral infiltrates, patient presented with shortness of breath, cough, fevers, weakness -SARS-CoV-2 PCR negative on 12/14/2020 -discontinue droplet, airborne, contact isolation/precautions (7) Abnormal glucose: Code(s): R73.09 - Other abnormal glucose Status: Acute Assessment and Plan: Patient is hyperglycemic -hemoglobin A1c on 10/10/2020 was 5.0 -continue Accu-Cheks and sliding scale insulin, added Levemir -hemoglobin A1c 6.3 this admission (8) Chronic kidney disease: Qualifiers: Chronic kidney disease stage: stage 3 (moderate) Qualifi
[2020-12-20 11:48] LABS: Glucose Point of Care 223 (65-105)
--- NOTE | 2020-12-20 14:00 | PM.PNCARD ---
Progress Note: A&P Additional Plan 85-year-old lady with: Persistent atrial fibrillation despite all aggressive attempts to provide rhythm control. Patient is hemodynamically doing poorly has worsening chest congestion on x-ray and increasing ventilator support requirements. Prognosis for recovery is extremely poor. Agree with family decision to consider withdrawing support as soon as they are comfortable making this decision. There is no additional reasonable options to discuss to restore sinus rhythm. Amandeep Mercado MD [facility] Subjective Date/time seen: Date of service: 12/20/20 14:00 Interval history: Follow-up visit in this 85-year-old woman with: Persistent atrial fibrillation, coronary artery disease and inability to anticoagulate because of GI bleeding. Attempt at restoring sinus rhythm last Saturday was briefly successful but only maintained rhythm for a brief moment. Obviously she will therefore be in chronic atrial fibrillation. Patient is doing poorly still in the ICU on ventilator support. [employer] indicates family is likely going to withdraw support tomorrow. Patient was DNR/DNI which was a decision they abruptly changed when she was in extremis last week. Exam Const: Other: Elderly lady sedated and on ventilator support Eyes: Sclera: sclerae normal Pupils: Equal, round and reactive pupils present Neck: Neck: supple Resp: Other: Breath sounds with central rhonchi Cardio: Rhythm: abnormal rhythm irregularly irregular GI: GI Palp: Yes Soft to palpation Auscultation: normal bowel sounds Extrem: Other: No significant edema Objective Data Vital Signs Vital Signs: Vital Signs - 24 hr 12/19/20 16:00 12/19/20 16:26 12/19/20 16:32 Temperature 37.1 C Pulse Rate 99 98 89 Respiratory Rate 24 H 24 H Blood Pressure 107/74 100/61 Pulse Oximetry 96 12/19/20 16:52 12/19/20 17:55 12/19/20 18:00 Temperature Pulse Rate 109 H 119 H 102 H Respiratory Rate 24 H Blood Pressure 109/79 Pulse Oximetry 100 97 12/19/20 19:38 12/19/20 19:47 12/19/20 20:00 Temperature 37.1 C Pulse Rate 102 H 111 H 121 H Respiratory Rate 24 H 24 H Blood Pressure 103/66 Pulse Oximetry 96 97 96 12/19/20 20:21 12/19/20 20:22 12/19/20 22:00 Temperature Pulse Rate 122 H 109 H 118 H Respiratory Rate 24 H 24 H 24 H Blood Pressure 112/63 Pulse Oximetry 95 12/19/20 22:06 12/19/20 23:20 12/19/20 23:36 Temperature Pulse Rate 105 H 112 H 107 H Respiratory Rate 24 H Blood Pressure 112/63 Pulse Oximetry 94 94 12/20/20 00:00 12/20/20 00:08 12/20/20 01:56 Temperature 37.2 C Pulse Rate 102 H 108 H 105 H Respiratory Rate 24 H Blood Pressure 105/68 105/68 Pulse Oximetry 94 93 12/20/20 02:00 12/20/20 02:20 12/20/20 03:33 Temperature Pulse Rate 106 H 92 102 H Respiratory Rate 24 H 24 H Blood Pressure 94/59 L 94/59 L Pulse Oximetry 94 95 12/20/20 03:49 12/20/20 03:51 12/20/20 03:52 Temperature Pulse Rate 103 H 99 91 Respiratory Rate 24 H 24 H Blood Pressure 116/64 Pulse Oximetry 12/20/20 03:53 12/20/20 04:00 12/20/20 04:41 Temperature 36.6 C Pulse Rate 97 87 93 Respiratory Rate 24 H Blood Pressure 116/64 109/51 L Pulse Oximetry 94 96 12/20/20 05:08 12/20/20 05:38 12/20/20 06:00 Temperature Pulse Rate 93 90 101 H Respiratory Rate 24 H Blood Pressure 103/58 L 89/48 L 107/64 Pulse Oximetry 95 12/20/20 08:00 12/20/20 08:14 12/20/20 08:15 Temperature 36.6 C Pulse Rate 106 H 95 108 H Respiratory Rate 24 H 24 H 24 H Blood Pressure 94/58 L Pulse Oximetry 96 12/20/20 08:36 12/20/20 09:21 12/20/20 09:39 Temperature 36.7 C Pulse Rate 105 H 109 H 106 H Respiratory Rate 24 H 24 H Blood Pressure 94/59 L Pulse Oximetry 95 95 12/20/20 09:40 12/20/20 09:58 12/20/20 11:17 Temperature Pulse Rate 118 H 103 H 88 Respiratory Rate Blood Pressure 87/59 L 87/59 L Pulse Oximetry 94 12/20/20
[2020-12-20 17:15] LABS: Glucose Point of Care 148 (65-105)
[2020-12-20 23:23] LABS: Glucose Point of Care 187 (65-105)
[2020-12-21] VITALS (15 sets, daily range): BP systolic 94–123; BP diastolic 53–73; PULSE 87–119; RESP 20; TEMP 35.6–36.8; O2SAT 93–98
[2020-12-21] MEDS: NOREPINEPHRINE 8 MG/D5W 250 ML 8 MG/250 ML BAG 24.38 MG IV CONT (01:02)
[2020-12-21] MEDS: AMIODARONE 360 MG/D5W 200 ML 360 MG/200 ML BAG 33.33 MG IV CONT ×2 (02:39→08:30)
[2020-12-21 04:20] LABS: Alveolar/Arterial O2 Gradient 165.4 mmHg; Base Excess ABG 2.9 mEq/l (+/-2.0); Fractional Inspired Oxygen 40 %; HCO3 ABG 28.7 mEq/l (22.0-26.0); Oxygen Content ABG 14.7 %vol (16.0-22.0); Oxygen Saturation ABG 91.3 % (95.0-100.0); Oxyhemoglobin 90.7 % THb (90.0-100.0); PCO2 ABG 49.7 mmHg (35.0-45.0); PO2 ABG 62.6 mmHg (80.0-100.0); PO2 FiO2 Ratio Arterial Blood 1.56 %; Total Hemoglobin 11.5 g/dL (12.0-18.0)
[2020-12-21 04:21] LABS: Device VENTILATOR; Modified Allen's Test Pass; Site Drawn RIGHT RADIAL
[2020-12-21 04:22] LABS: Arterial Blood Gas PEEP 10 cmH2O; Arterial Blood Gas Tidal Volume 300 ml; Arterial Blood Gas Vent Mode CMV; Arterial Blood Gas Ventilator rate 20 /MIN
[2020-12-21] MEDS: FENTANYL 2,500MCG/NS250ML(*CRX 2,500 MCG/250 ML BAG IV CONT (04:51)
[2020-12-21 05:47] LABS: Alanine Aminotransferase 42 U/L (4-35); Albumin Level 2.5 g/dL (3.5-5.1); Alkaline Phosphatase 510 U/L (38-126); Anion Gap 4 mmol/L (8-16); Aspartate Amino Transferase 68 U/L (14-36); Bilirubin,Total 0.5 mg/dL (0.2-1.3); Blood Urea Nitrogen 23 mg/dL (7-17); Calcium 7.4 mg/dL (8.4-10.2); Carbon Dioxide 32 mmol/L (22-30); Chloride 95 mmol/L (98-107); Estimated CRCL calculation 31 ml/min; Estimated Glomerular Filt Rate 43; Glucose 157 mg/dL (65-105); Magnesium 2.3 mg/dL (1.6-2.3); Phosphorus 2.8 mg/dL (2.5-4.5); Potassium 3.6 mmol/L (3.4-5.0); Sodium 131 mmol/L (137-145)
[2020-12-21] MEDS: CENTRAL LINE FLUSH 10 ML IV PUSH (05:57)
[2020-12-21] MEDS: METOCLOPRAMIDE HCL INJ 10 MG/2 ML VIAL IV PUSH (05:57)
[2020-12-21] MEDS: PANTOPRAZOLE SODIUM IV 40 MG VIAL IV PUSH (08:16)
[2020-12-21] MEDS: ENOXAPARIN 40 MG/0.4 ML SYRINGE SUB-Q (08:16)
[2020-12-21] MEDS: polyethylene glycoL 3350 17 GM POWD.PACK PO (08:16)
[2020-12-21 08:25] LABS: Glucose Point of Care 182 (65-105)
[2020-12-21] MEDS: INSULIN DETEMIR 100 UNITS/ML 10 UNITS SUB-Q (08:27)
[2020-12-21] MEDS: MORPHINE SULFATE (*CRX) 2 MG/ML INJ IV PUSH ×3 (10:51→14:28)
[2020-12-21] MEDS: LORazepam INJ (*CRX) 2 MG/ML VIAL IV PUSH ×2 (10:53→13:00)
--- NOTE | 2020-12-21 11:44 | WPDINTPN ---
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 tidal volume strategy, on peep of 10, 60% FiO2, wean FiO2 as tolerated -SARS-CoV-2 PCR NEGATIVE -continue ceftriaxone and azithromycin (initiated on 12/15/2020) -sedated with fentanyl and Versed infusion (2) Shock: Code(s): R57.9 - Shock, unspecified Status: Acute Assessment and Plan: -likely septic shock, hypotension could also be related to positive pressure ventilation, sedation medications, atrial fibrillation RVR -Continue Levophed, maintain mean arterial pressures greater than 65 mmHg -continue antibiotics as above -urine cultures negative -sputum cultures grew Hemophilus influenzae -blood cultures are negative so far x2 -central line placed in left IJ on 12/15/2020 (3) Atrial fibrillation: Qualifiers: Atrial fibrillation type: unspecified Qualified Code(s): I48.91 - Unspecified atrial fibrillation Code(s): I48.91 - Unspecified atrial fibrillation Status: Chronic Assessment and Plan: Patient with AFib RVR with heart rate in the 150s to 170s, Cardizem infusion was started as blood pressures were in the 160s, blood pressures dropped requiring central line and Levophed. -remains in AFib, was in RVR overnight requiring an additional amiodarone bolus. Is on amiodarone at 1 mg/minute -patient also has a Watchman device which was placed and [facility] -appreciate cardiology evaluation, patient was cardioverted on 12/16 , by Cardiology, she did go into sinus rhythm briefly but degenerated back and to atrial fibrillation. Discussed with Cardiology, continue amiodarone at this time (4) Acute heart failure with preserved ejection fraction: Code(s): I50.31 - Acute diastolic (congestive) heart failure Status: Acute Assessment and Plan: Chest x-ray shows bilateral diffuse edema infiltrates -patient was given Lasix on admission -currently in shock, will hold Lasix for now, -will restart Lasix on blood pressure tolerates -echocardiogram 12/15/2020: EF of 30-35%, mild to moderate tricuspid regurg, no pulmonary hypertension, possible Takotsubo versus secondary to CAD (5) UTI (urinary tract infection): Code(s): N39.0 - Urinary tract infection, site not specified Status: Acute Assessment and Plan: UA with possible UTI, history of E coli UTI -urine cultures negative (6) Suspected COVID-19 virus infection: Code(s): Z20.822 - Contact with and (suspected) exposure to COVID-19 Status: Acute Assessment and Plan: Diffuse bilateral infiltrates, patient presented with shortness of breath, cough, fevers, weakness -SARS-CoV-2 PCR negative on 12/14/2020 -discontinue droplet, airborne, contact isolation/precautions (7) Abnormal glucose: Code(s): R73.09 - Other abnormal glucose Status: Acute Assessment and Plan: Patient is hyperglycemic -hemoglobin A1c on 10/10/2020 was 5.0 -continue Accu-Cheks and sliding scale insulin, added Levemir -hemoglobin A1c 6.3 this admission (8) Chronic kidney disease: Qualifiers: Chronic kidney disease stage: stage 3 (moderate) Qualified Code(s): N18.3 - Chronic kidney disease, stage 3 (moderate) Code(s): N18.9 - Chronic kidney disease, unspecified Status: Chronic Assessment and Plan: Patient with history of chronic kidney disease with creatinine between 1.1 and 1.2. -creatinine stable at this time -continue monitor urine output, electrolytes and renal function (9) D
--- NOTE | 2020-12-21 13:53 | PM.PNCARD ---
Progress Note: A&P Assessment and Plan (1) Atrial fibrillation: Qualifiers: Atrial fibrillation type: unspecified Qualified Code(s): I48.91 - Unspecified atrial fibrillation Code(s): I48.91 - Unspecified atrial fibrillation Status: Chronic Assessment and Plan: History of AFib. Failed cardioversion 12/16/2020. AFib rate is difficult to control despite several boluses of amiodarone so far, now reasonable on amiodarone 1 milligram/minute drip. Not anticoagulated but did have a Watchman left atrial appendage occlusion device implanted. (2) Acute exacerbation of CHF (congestive heart failure): Qualifiers: Heart failure type: unspecified Qualified Code(s): I50.9 - Heart failure, unspecified Code(s): I50.9 - Heart failure, unspecified Status: Acute Assessment and Plan: (3) Cardiomyopathy: Code(s): I42.9 - Cardiomyopathy, unspecified Status: Acute Assessment and Plan: EF is 30-35%, possible [place]ub[place] versus secondary to CAD. Troponins negative. . (4) Respiratory failure: Code(s): J96.90 - Respiratory failure, unspecified, unspecified whether with hypoxia or hypercapnia Status: Acute Assessment and Plan: Respiratory failure and shock, on Levophed, Due to, primarily, a H flu pneumonia and to a degree systolic diastolic CHF. (5) Coronary artery disease: Qualifiers: Coronary Disease-Associated Artery/Lesion type: [place] artery [place] vs. transplanted heart: [place] heart Associated angina: without angina Qualified Code(s): I25.10 - Atherosclerotic heart disease of [place] coronary artery without angina pectoris Code(s): I25.10 - Atherosclerotic heart disease of [place] coronary artery without angina pectoris Status: Chronic Assessment and Plan: History of CAD, stable, troponins negative. Comfort care is reasonable. 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 12/21/20: Date of service: Plan is for comfort care. Review of Systems Review of Systems: ROS unobtainable: Yes unobtainable due to medical condition Exam Const: General: comfortable HENMT: General nose exam: no epistaxis Neuro: Cognition (Neuro): abnormal cognition Objective Data Vital Signs Vital Signs: Vital Signs - 24 hr 12/20/20 14:22 12/20/20 14:25 12/20/20 14:36 Temperature Pulse Rate 98 109 H 97 Respiratory Rate 24 H Blood Pressure 103/54 L Pulse Oximetry 96 12/20/20 15:12 12/20/20 16:50 12/20/20 17:20 Temperature 36.9 C 36.7 C Pulse Rate 107 H 124 H 114 H Respiratory Rate 20 20 Blood Pressure 97/49 L 110/66 Pulse Oximetry 95 92 93 12/20/20 20:00 12/20/20 20:04 12/20/20 20:20 Temperature 36.7 C Pulse Rate 118 H 116 H 117 H Respiratory Rate 20 Blood Pressure 106/56 L 106/56 L Pulse Oximetry 94 95 12/20/20 22:00 12/20/20 23:25 12/20/20 23:52 Temperature Pulse Rate 117 H 103 H 122 H Respiratory Rate 20 20 Blood Pressure 101/55 L Pulse Oximetry 93 93 12/21/20 00:00 12/21/20 01:02 12/21/20 02:00 Temperature 36.8 C Pulse Rate 119 H 104 H 96 Respiratory Rate 20 20 Blood Pressure 96/60 L 94/62 L 98/61 L Pulse Oximetry 93 93 12/21/20 02:30 12/21/20 02:39 12/21/20 03:06 Temperature Pulse Rate 95 97 95 Respiratory Rate Blood Pressure 114/65 107/62 Pulse Oximetry 94 12/21/20 03:58 12/21/20 04:00 12/21/20 04:51 Temperature 36.7 C Pulse Rate 98 102 H 87 Respiratory Rate 20 20 Blood Pressure 102/53 L Pulse Oximetry 95 94
--- NOTE | 2020-12-21 16:38 | PC.NURSE ---
Pt placed on comfort care this morning at 1000. Pt extubated at 1040. Time of 1440.
--- NOTE | 2020-12-22 18:11 | P.DN_ITS ---
Discharge Sum: Prov Provider Primary care physician: Amandeep Gutierrez DO Admitting provider: Layo Muniz MD Consults: 12/15/20 06:39 Consult to Physician Routine Comment: notified by md Consulting Provider: Day Morales call center support representative/ group to consult: Dr. Morales Reason for consultation: ICU transfer Has provider been notified: Yes 12/16/20 08:00 Consult to Physician Routine Comment: dr. mercado is aware of the pt. consult Consulting Provider: Amandeep Mercado call center support representative/ group to consult: CARDIOLOGY Reason for consultation: cardiomyopathy, abnormal wall motion abnormalities on ECHO Has provider been notified: Yes Discharge Sum: Diag Contributing Factors (1) Acute respiratory failure: (2) Shock: (3) Acute heart failure with preserved ejection fraction: (4) Atrial fibrillation: (5) Abnormal glucose: (6) Hypertension: (7) Chronic kidney disease: (8) Coronary artery disease: Discharge Sum: Summary Date and Time Date of admission: 12/14/20 23:24 Summary Details: Date of 12/21/2020, date of this note 12/22/2020. I am dictating this summary on Denise Segura, a patient I did not actually see or care for during her hospitalization. This note is taken entirely from the electronic medical records. Ms Segura was admitted on 12/15/2020 in respiratory failure thought secondary to pneumonia and acute on chronic systolic failure. She was hypotensive requiring pressors to maintain her blood pressure. She was intubated and mechanically ventilated after admission who remained so until her . She had bouts of atrial fibrillation with rapid ventricular response and failed electrical cardioversion. Was on amiodarone drip to try to control rate also. Urine cultures grew E coli and sputum cultures grew Haemophilus influenzae and she was treated appropriately for both, and blood cultures remain no growth. Covid testing was negative. Over the course of the ensuing hospitalization she she did not steadily improve, On the the family decided to proceed to comfort care. She was extubated and shortly thereafter. Additional Data Attending physician: Layo Muniz MD
== END 2020-12-21 14:40 | disposition expired | DRG 207 ==
LOC: ANHED 12-15 00:12 → ANHIMU 12-15 03:01 → ANHICU 12-15 12:03 → ANHIMU 12-26 17:22
PROVIDERS: Internal Medicine; Admitting Provider Family Medicine; Emergency Provider Emergency Medicine; PCP Internal Medicine; Visit Provider Internal Medicine
DX: J96.01 Acute respiratory failure with hypoxia (principal); I50.33 Acute on chronic diastolic (congestive) heart failure; J14 Pneumonia due to Hemophilus influenzae; I13.0 Hypertensive heart and chronic kidney disease with heart failure and stage 1 through stage 4 chronic kidney disease, or unspecified chronic kidney disease; R57.9 Shock, unspecified; I48.19 Other persistent atrial fibrillation; I42.9 Cardiomyopathy, unspecified; N18.30 Chronic kidney disease, stage 3 unspecified; Z20.822 Contact with and (suspected) exposure to COVID-19; K21.9 Gastro-esophageal reflux disease without esophagitis; I25.10 Atherosclerotic heart disease of native coronary artery without angina pectoris; E78.49 Other hyperlipidemia; R73.09 Other abnormal glucose; Z66 Do not resuscitate; Z79.82 Long term (current) use of aspirin; Z79.899 Other long term (current) drug therapy; Z85.038 Personal history of other malignant neoplasm of large intestine; Z87.891 Personal history of nicotine dependence; Z95.0 Presence of cardiac pacemaker; Z95.5 Presence of coronary angioplasty implant and graft; Z98.890 Other specified postprocedural states; Z87.440 Personal history of urinary (tract) infections
CPT/HCPCS: 31500; 36415; 36600; 71045; 72131; 80048; 80053; 81001; 82375; 82805; 83036; 83050; 83605; 83735; 83880; 84100; 84439; 84443; 84484; 85025; 85027; 85610; 86140; 87040; 87070; 87077; 87086; 87088; 87185; 87205; 93005; 93306; 94002; 94003; 96365; 96374; 96375; 99291; A9270; C9113; C9803; J0131; J0282; J0456; J0696; J1650; J1815; J1940; J2060; J2250; J2270; J2405; J2765; J3010; J3480; J7030; J7040; J7050; P9047; U0003; U0005